=== PATIENT | female | born 1945 | race Caucasian/White ===

== ENCOUNTER 2017-10-22 08:32 | Day surgery (SDC) | payer MEDICARE, SELFPAY ==
[2017-10-22] VITALS (15 sets, daily range): BP systolic 101–140; BP diastolic 42–73; PULSE 72–84; RESP 14–20; TEMP 36.6; O2SAT 91–100; BMI 27.1
--- NOTE | 2017-10-22 10:59 | HMH.SCOPE ---
- Procedure: Date/Time of Procedure:: 10/22/17 10:59 Procedure Performed:: Colonoscopy with polypectomy Indications:: This is a 72-year-old female seen in consultation from Dr. Quezada for screening colonoscopy. Performing Provider:: Elijah Strange MD Referring Provider:: Dr. Rajiv Quezada Sedation:: IV sedation with 7 mg of Versed and 100 mcg of fentanyl Procedure:: After informed consent was obtained, the patient was taken to the endoscopy suite. IV sedation soon after she was transferred to the left lateral decubitus position. Digital rectal exam revealed no significant abnormality. The colonoscope was placed in position. The entire colon was evaluated. Bowel preparation was fair. Severe tortuosity made advancement of the colonoscope very difficult. Fairly large somewhat pedunculated polyp at 20 cm was excised utilizing a combination of snare polypectomy and cold biopsy forceps. No additions were seen. The colonoscope was carefully removed and the patient was transferred to recovery. Findings:: Bowel preparation fair Severe tortuosity Fairly large somewhat pedunculated polyp at 20 cm Impressions:: (see findings) Recommendations:: Repeat colonoscopy is pending pathology but will likely be between 2-3 years secondary to tortuosity and size/nature of polyp Complications:: No immediate Estimated blood obtained (mL): 1
== END 2017-10-22 11:40 | disposition home or self-care (01) ==
PROVIDERS: PCP Family Medicine; Visit Provider Surgery
PROC: 0DJD8ZZ Inspection of Lower Intestinal Tract, Via Natural or Artificial Opening Endoscopic (ICD-10-PCS; principal; 2017-10-22 09:30)
DX: Z12.11 Encounter for screening for malignant neoplasm of colon (principal); K63.5 Polyp of colon
CPT/HCPCS: 45385; 88305; 99152; 99153

== ENCOUNTER → 2018-04-01 08:11 | Outpatient (CLI) | payer MEDICARE, SELFPAY ==
--- NOTE | 2018-04-01 08:16 | MM_ITS ---
MM Dig screening mamm BI w/CAD CAD Screening ORDERING PHYSICIAN : Rajiv Quezada MD PATIENT AGE: 72 years GENDER: Female COMPARISON June 2016, March 2015, April 2012 bilateral mammogram studies INDICATION: 72-year-old with no hormones no new complaints noncontributory family history. TECHNIQUE: Standard CC and MLO images were obtained. R2 CAD reviewed. FINDINGS: Low-density breast bilaterally with minimal residual fibroglandular elements. Scattered small stable appearing densities bilaterally with no no new suspicious dominant mass. No suspicious calcifications. CAD computer review highlights no areas of concern either. RIGHT BREAST:. Overall stable pattern with no new findings. Small area of focal Fibroglandular densities superior left breast stable LEFT BREAST:Small density at the upper outer quadrant left breast is been present since studies dating back to 2011. No significant change can be followed. Safely IMPRESSION: . Stable bilateral mammogram with no significant new findings. Bilateral follow-up in one year recommended BI-RADS Category: 1 Negative RECOMMENDED FOLLOW-UP: 1YR - 1 YEAR FOLLOW-UP (A letter has been sent to the patient regarding results of the study.)
== END ==
PROVIDERS: PCP Family Medicine; Visit Provider Family Medicine
DX: Z12.31 Encounter for screening mammogram for malignant neoplasm of breast (principal)
CPT/HCPCS: 77067

== ENCOUNTER → 2019-04-28 08:16 | Outpatient (CLI) | payer MEDICARE, SELFPAY ==
--- NOTE | 2019-04-28 08:26 | MM_ITS ---
MM Dig screening mamm BI w/CAD CAD Screening COMPARISON: Digital mammograms with CAD 04/01/2018 and 06/27/2016 INDICATION: There is no personal or family history of breast cancer TECHNIQUE: Standard CC and MLO images were obtained. R2 CAD reviewed. FINDINGS: Scattered fibro glandular densities are seen throughout both breasts. There are few scattered benign-appearing microcalcifications in each breast. There is a stable small benign-appearing nodular density outer quadrant left breast. There is no suspicious lesion and there are no suspicious microcalcifications. IMPRESSION: , Fibrofatty parenchyma with no suspicious lesion seen BI-RADS Category: 2 Benign Finding(s) RECOMMENDED FOLLOW-UP: 1YR - 1 YEAR FOLLOW-UP (A letter has been sent to the patient regarding results of the study.)
--- NOTE | 2019-04-28 08:27 | XR_ITS ---
XR DEXA axial skeleton, HISTORY: ITS.REASON: POST MENOPAUSAL ORDERING PHYSICIAN: Rajiv Quezada MD PATIENT AGE: 73 years COMPARISON: None FINDINGS: The BMD measured at the Left femoral neck is 0.772 g/cm squared with a T score of -1.9. This is considered Osteopenic according to the World Health Organization criteria. Fracture risk is Moderate. Treatment is advised. IMPRESSION: Osteopenia with moderate fracture risk. Suggest follow-up exam April 2021
== END ==
PROVIDERS: PCP Family Medicine; Visit Provider Family Medicine
DX: Z12.31 Encounter for screening mammogram for malignant neoplasm of breast (principal); Z13.820 Encounter for screening for osteoporosis; Z78.0 Asymptomatic menopausal state
CPT/HCPCS: 77067; 77080

== ENCOUNTER → 2019-07-11 14:42 | Outpatient (CLI) | payer OTHER, SELFPAY ==
--- NOTE | 2019-07-11 14:45 | MR_ITS ---
PROCEDURE: MR SHOULDER RT WO CON CLINICAL INDICATION: evaluate for rotator cuff tear Shoulder pain with limited range of motion COMPARISON: XR SHOULDER RT MIN 2V from 06/08/2019 TECHNIQUE: Routine multiplanar multi echo sequences are performed without gadolinium enhancement. FINDINGS: There is moderate acromioclavicular arthropathy with soft tissue swelling about the AC joint. Small amount fluid is present inferior to the distal clavicle and the AC joint. There is some down-sloping of the lateral aspect of the a chromium with subacromial stenosis. There is a complete tear of the supraspinatus tendon with retraction of the musculotendinous fibers. Infraspinatus tendon and teres minor tendon appears intact. Subscapularis tendon has an abnormal appearance. There thickening of the distal aspect of the supraspinatus tendon with some retraction of the fibers and discontinuity of the fibers distally consistent with tear of the subscapularis tendon. There is an area of increased T2 signal within the humeral head anteriorly somewhat irregular consistent with an area of sub cortical cystic change. No obvious labral tear. The bicipital tendon is in place although not enveloped completely anteriorly by the subscapularis tendon as 1 would expect. There are osteoarthritic changes of the glenohumeral joint. There is superior location of the humeral head. There is a shoulder joint effusion. Fluid is present in the bicipital tendon sheath. IMPRESSION: 1. Complete tear of the supraspinatus tendon with retraction of the musculotendinous fibers 2. There is also tear of the distal aspect of the subscapularis tendon which also appears complete with mild retraction of the musculotendinous fibers. Edema is present around the subscapularis tendon. 3. Osteoarthritic change of the acromioclavicular and glenohumeral joint with superior location of the humeral head with shoulder joint effusion and subarticular cystic changes of the humeral head Dictated by: Byron Ames MD 07/13/2019 06:16 Electronically signed by Byron Ames MD in [place] 07/13/2019 06:16
== END ==
PROVIDERS: PCP Family Medicine; Visit Provider Orthopaedic Surgery
DX: M25.511 Pain in right shoulder (principal); M75.41 Impingement syndrome of right shoulder
CPT/HCPCS: 73221

== ENCOUNTER → 2019-11-17 09:09 | Outpatient (CLI) | payer MEDICARE, SELFPAY ==
--- NOTE | 2019-11-17 09:09 | FL_ITS ---
PROCEDURE: FL BARIUM SWALLOW CLINICAL INDICATION: dysphagia/ HO foreign body impaction COMPARISON: No exams were available for comparison TECHNIQUE: In the upright position the patient was observed to swallow barium in both the AP and lateral view. The cervical esophagus was examined under fluoroscopy with images obtained. The patient was then placed prone in the right anterior oblique position and was observed to swallow barium with Valsalva technique . FLUOROSCOPY TIME: 1 minutes and 23 seconds FINDINGS: There was no evidence of aspiration. There was normal peristalsis. No filling defects or mucosal abnormalities. No masses or strictures. There is a small hiatal hernia with a mildly constricting Schatzki's ring IMPRESSION: Small hiatal hernia with mildly constricting Schatzki's ring Dictated by: Byron Ames MD 11/17/2019 16:47 Electronically signed by Byron Ames MD in [place] 11/17/2019 16:47
== END ==
PROVIDERS: PCP Family Medicine; Visit Provider Surgery
DX: T18.128D Food in esophagus causing other injury, subsequent encounter (principal)
CPT/HCPCS: 74220

== ENCOUNTER → 2020-05-17 10:03 | Outpatient (CLI) | payer MEDICARE, SELFPAY ==
--- NOTE | 2020-05-17 10:08 | MM_ITS ---
PROCEDURE: MM DIG SCREENING MAMM BI W/CAD Digital Breast Tomosynthesis Included CLINICAL INDICATION: SCREENING There is no personal or family history of breast cancer. COMPARISON: MG DIGMAMMS MAMMOGRAM SCREEN-FAMILY LITERACY COORDINATOR N/C from 04/24/2010 MG DMSB DIG MAMM-SCREEN [facility] from 06/27/2016 MG SCBI MM Dig screening mamm BI w/CAD from 04/01/2018 MG DIG MAMM-SCREEN [facility] from 04/28/2019 TECHNIQUE: Standard CC and MLO images and 3D Tomosynthesis was obtained. R2 CAD reviewed. FINDINGS: The breasts are composed primarily of fat with scattered fibroglandular densities seen throughout both breasts. There are few benign-appearing microcalcifications in each breast. There is a stable small asymmetric density upper-outer quadrant left breast. There is no new or suspicious lesion in either breast and no suspicious microcalcifications. IMPRESSION: Fibrofatty parenchyma with no suspicious lesions seen BI-RAD Category: 2 Benign Finding(s) FOLLOW-UP: 1YR 1 Year Follow-up (A letter has been sent to the patient regarding results of the study.) Dictated Dr. Tyrel Conner MD 05/25/2020 07:51 Dr. Tyrel Monae MD in [place] 05/25/2020 07:51
== END ==
PROVIDERS: PCP Family Medicine; Visit Provider Family Medicine
DX: Z12.31 Encounter for screening mammogram for malignant neoplasm of breast (principal)
CPT/HCPCS: 77063; 77067

== ENCOUNTER 2021-06-23 16:17 | Emergency (ER) | payer MEDICARE, SELFPAY ==
[2021-06-23 16:18] VITALS: BP 136/82; PULSE 83; RESP 16; TEMP 36.6; O2SAT 98; BMI 28.1
[2021-06-23 17:10] VITALS: BP 136/82; PULSE 83; RESP 16; TEMP 36.7; O2SAT 98; BMI 28.1
--- NOTE | 2021-06-23 17:21 | HMH.EDUTC ---
[facility] [place] Clinical Impression: Pain, dental, Dental abscess Disposition: Home, Self-Care Condition on Discharge: Good Instructions: DI for Dental Pain, Tooth Abscess Additional Instructions: follow up with dentist if symptoms worsen return or be seen in ed antibiotics as ordered tylenol or motrin as needed for pain Prescriptions: Amoxicillin [Amoxicillin 500mg Tab] 500 mg PO BID 10 Days #20 tab Transmission Status: Pending to [id number] Referrals: Rajiv Quezada MD [Primary Care Provider] - Time of Disposition: 17:29 Medical Decision Making - Jonathon Inquiry Pt receiving controlled substance: No Vital Signs: 06/23/21 16:18 Temperature 98 F Temperature Source Oral Pulse Rate [Radial] 83 Respiratory Rate 16 Blood Pressure [Right Arm] 136/82 Blood Pressure Mean [Right Arm] 100 Blood Pressure Position [Right Arm] Sitting 02 Sat by Pulse Oximetry 98 Oxygen Delivery Method Room Air [facility] [place] HPI - General Chief complaint: Urgent Treatment Center Stated complaint: dental pain Time Seen by Provider: 06/23/21 17:25 Mode of Arrival: Ambulatory Source of Information: Patient Limitations: No Limitations Description of Symptoms (Recalled from Triage Doc. by RN): C/O LT UPPER AND LOWER TOOTH PAIN STARTING TODAY - History of Present Illness Provider Complaint: 75 yr old female presents for dental pain. pt states she has pain in the lower gum around a tooth and the pain radiates down jaw that started today - Related Data Home Medications Medication Instructions Recorded Confirmed Amlodipine Besylate [Norvasc 5mg 5 mg PO DAILY 10/21/17 01/04/20 tablet] Atorvastatin Calcium [Atorvastatin 20 mg PO DAILY 10/21/17 01/04/20 20mg Tab] Levothyroxine Sodium 75 mcg PO DAILY 10/21/17 01/04/20 [Levothyroxine 75mcg (0.075mg) Tab] Meloxicam 15 mg PO DAILY 10/21/17 01/04/20 Previous Rx's Medication Instructions Recorded Ibuprofen [Ibuprofen 600mg 600 mg PO Q6HP PRN #30 tab 06/08/19 Tablet] Amoxicillin [Amoxicillin 500mg Tab] 500 mg PO BID 10 Days #20 tab 06/23/21 Allergies Allergy/AdvReac Type Severity Reaction Status Date / Time No Known Allergies Allergy Verified 01/04/20 14:58 [facility] History - Hepatitis A Screen Attestation statement:: This patient has been screened for Hepatitis A risk factors. I have reviewed the patient's past medical history: Yes Medical History: Reports:: Hyperlipidemia, Hypertension Denies:: Cancer, Diabetes Mellitus Type 1, Diabetes Mellitus Type 2, Internal Pacemaker, Lung Disease, MRSA, Seizures Other Medical History: Reports: Arthritis, Hypothyroidism, Other Other Surgeries: Yes: No Previous Surgery, Colonoscopy, EGD. No: Pacemaker Amputation: No Fractures: No - Social History Smoking Status: Never smoker Alcohol Intake: never Substance Use Type: denies use Occupational Status: employed Housing: house Household Members: none Family Hx:: No significant family history ROS Obtained: Yes Systems reviewed as appropriate & no additional complaints - Constitutional Constitutional: Reports system reviewed and no additional complaints, except as docu, Denies fever(s) - Eyes Eyes: Reports system reviewed and no additional complaints, except as docu, Denies blurry vision - ENT Ears, Nose, Mouth, and Throat: Reports system reviewed and no additional complaints, except as docu, Reports dental pain - Cardiovascular Cardiovascular: Reports system reviewed and no additional complaints, except as docu, Denies chest pain - Respiratory Respiratory: Reports system reviewed and no additional complaints, except as docu, Denies change in phlegm color - Gastrointestinal Gastrointestingal: Reports: system reviewed and no additional complaints, except as docu. Denies: abdominal pain - Genitourinary Female Genitourinary: Reports system reviewed and no additional complaints, except as docu - Musculoskeletal Musculoskeletal: Reports syst
[2021-06-23 17:30] VITALS: BP 136/82; PULSE 83; RESP 16; TEMP 36.7; O2SAT 98
== END 2021-06-23 17:37 | disposition home or self-care (01) ==
PROVIDERS: Emergency Provider Nurse Practitioner Family; PCP Family Medicine
DX: K04.7 Periapical abscess without sinus (principal); I10 Essential (primary) hypertension; E78.5 Hyperlipidemia, unspecified
CPT/HCPCS: G0463; 99202

== ENCOUNTER → 2021-06-27 15:44 | Outpatient (CLI) | payer MEDICARE, SELFPAY ==
--- NOTE | 2021-06-27 15:50 | MM_ITS ---
PROCEDURE: MM DIG SCREENING MAMM BI W/CAD Digital Breast Tomosynthesis Included CLINICAL INDICATION: SCREENING COMPARISON: MG SCBI MM Dig screening mamm BI w/CAD from 04/01/2018 MG DIG MAMM-SCREEN PARRIS from 04/28/2019 MG MM DIG SCREENING MAMM BI W/CAD from 05/17/2020 TECHNIQUE: Standard CC and MLO images and 3D Tomosynthesis was obtained. R2 CAD reviewed. FINDINGS: The breasts are almost entirely fatty. Benign-appearing calcifications noted bilaterally. No suspicious appearing mass, malignant-appearing microcalcification, architectural distortion, or skin thickening. IMPRESSION: Benign findings. BI-RAD Category: 2 Benign Finding FOLLOW-UP: 1 YR 1 Year Follow-up (A letter has been sent to the patient regarding results of the study.) Dictated by: Byron Ames MD 07/11/2021 10:05 Byron Ames MD in [place] 07/11/2021 10:05
== END ==
PROVIDERS: PCP Family Medicine; Visit Provider Family Medicine
DX: Z12.31 Encounter for screening mammogram for malignant neoplasm of breast (principal)
CPT/HCPCS: 77063; 77067

== ENCOUNTER → 2021-09-27 08:40 | Outpatient (CLI) | payer MEDICARE, SELFPAY ==
--- NOTE | 2021-09-27 08:44 | XR_ITS ---
PROCEDURE: XR DEXA AXIAL SKELETON CLINICAL HISTORY: OSTEOPOROSIS SCREENING, POST MENOPAUSAL COMPARISON: No exams were available for comparison FINDINGS: The right hip BMD is 0.664 with a T-score of -1.7. The left hip BMD is 0.620 with a T-score of -2.0. The lumbar spine BMD is 1.002 with a T-score of -0.4. IMPRESSION: This patient is considered osteopenic according to the World Health Organization criteria. Bone density is between 10 and 25 percent below young normal. Fracture risk is moderate. Treatment is advised. Based on these results a follow-up exam is recommended in 2 year. Dictated by: Byron Ames MD 09/27/2021 14:43 Byron Aems MD in [place] 09/27/2021 14:43
== END ==
PROVIDERS: PCP Family Medicine; Visit Provider Family Medicine
DX: Z13.820 Encounter for screening for osteoporosis (principal); Z78.0 Asymptomatic menopausal state
CPT/HCPCS: 77080

== ENCOUNTER 2022-05-04 14:09 | Emergency (ER) | payer MEDICARE, SELFPAY ==
[2022-05-04 15:00] VITALS: BP 198/86; PULSE 92; RESP 18; TEMP 36.7; O2SAT 98; BMI 30.6
--- NOTE | 2022-05-04 15:05 | HMH.EDUTC ---
[facility] [place] Disposition Clinical Impression: Left knee pain Qualifiers: Chronicity: acute Qualified Code(s): M25.562 - Pain in left knee Osteoarthritis of left knee Qualifiers: Osteoarthritis type: unspecified Qualified Code(s): M17.12 - Unilateral primary osteoarthritis, left knee Disposition: Home, Self-Care Condition on Discharge: Good Instructions: DI for Osteoarthritis, DI for Knee Pain Additional Instructions: Rest the extremity, Elevate the extremity as tolerated while you are resting. Take the steroids (medrol dose pack) as directed. Don't start it until tomorrow since you had the shot here today. Follow up with your regular doctor. GO TO THE ER FOR ANY WORSENING SYMPTOMS Prescriptions: methylPREDNISolone [Medrol] 4 mg PO DIRECTED 6 Days #21 packet Transmission Status: Received by [id number] Referrals: Rajiv Quezada MD [Primary Care Provider] - Time of Disposition: 15:25 Medical Decision Making - Medical Records Medical records reviewed: No: I reviewed the patient's medical records. - Jonathon Inquiry Pt receiving controlled substance: No Vital Signs: 05/04/22 15:00 05/04/22 15:30 Temperature 98.0 F 98.0 F Temperature Source Oral Pulse Rate 92 H Pulse Rate [Left] 92 H Respiratory Rate 18 18 Blood Pressure 198/86 H Blood Pressure [Left Arm] 198/86 H Blood Pressure Mean [Left Arm] 123 Blood Pressure Source [Left Arm] Automatic Cuff Blood Pressure Position [Left Arm] Sitting 02 Sat by Pulse Oximetry 98 Oxygen Delivery Method Room Air Orders (Tests/Meds): ED MEDICATIONS Discontinued Medications Generic Name Dose Route Start Last Admin Trade Name Fernanda PRN Reason Stop Dose Admin Ketorolac Tromethamine 30 mg 05/04/22 15:23 05/04/22 15:25 Ketorolac 60mg/2ml Vial IM 05/04/22 15:24 30 mg ONCE ONE Administration Methylprednisolone Sodium Succinate 125 mg 05/04/22 15:23 05/04/22 15:25 Methylprednisolone Sod Succ 125mg Vial IM 05/04/22 15:24 125 mg ONCE ONE Administration Medical Decision Narrative: She refused any x-rays. [facility] [place] HPI - General Stated complaint: Left knee pain Time Seen by Provider: 05/04/22 15:05 - History of Present Illness Provider Complaint: She is here with c/o left knee pain. She denies any fall or injury. She states that she went to a wedding yesteday and had to walk a lot. She has a history of osteoarthritis of her knees and she thinks that she over did it and irritated her knee. She denies any leg swelling and any history of dvt's. - Related Data Home Medications Medication Instructions Recorded Confirmed Amlodipine Besylate [Norvasc 5mg 5 mg PO DAILY 10/21/17 01/04/20 tablet] Atorvastatin Calcium [Atorvastatin 20 mg PO DAILY 10/21/17 01/04/20 20mg Tab] Levothyroxine Sodium 75 mcg PO DAILY 10/21/17 01/04/20 [Levothyroxine 75mcg (0.075mg) Tab] Meloxicam 15 mg PO DAILY 10/21/17 01/04/20 Previous Rx's Medication Instructions Recorded Ibuprofen [Ibuprofen 600mg 600 mg PO Q6HP PRN #30 tab 06/08/19 Tablet] Amoxicillin [Amoxicillin 500mg Tab] 500 mg PO BID 10 Days #20 tab 06/23/21 peg 3350-electrolytes 236 240 ml PO Q10M #4000 ml 04/01/22 gram-22.74 gram-6.74 gram-5.86 gram solution methylPREDNISolone [Medrol] 4 mg PO DIRECTED 6 Days #21 05/04/22 packet Allergies Allergy/AdvReac Type Severity Reaction Status Date / Time No Known Allergies Allergy Verified 01/04/20 14:58 [facility] History - Hepatitis A Screen Attestation statement:: This patient has been screened for Hepatitis A risk factors. I have reviewed the patient's past medical history: Yes Medical History: Reports:: Hyperlipidemia, Hypertension Denies:: Cancer, Diabetes Mellitus Type 1, Diabetes Mellitus Type 2, Internal Pacemaker, Lung Disease, MRSA, Seizures Other Medical History: Reports: Arthritis, Hypothyroidism, Other Other Surgeries: Yes: No Previous Surgery, Colonoscopy, EGD. No:
[2022-05-04 15:30] VITALS: BP 198/86; PULSE 92; RESP 18; TEMP 36.7; O2SAT 98
== END 2022-05-04 15:38 | disposition home or self-care (01) ==
PROVIDERS: Emergency Provider Nurse Practitioner Family; PCP Family Medicine
DX: M17.12 Unilateral primary osteoarthritis, left knee
CPT/HCPCS: 96372; 99212; G0463

== ENCOUNTER → 2022-05-17 12:02 | Outpatient (CLI) | payer MEDICARE, SELFPAY | PROVIDERS: PCP Surgery; Visit Provider Surgery | DX: Z01.812 Encounter for preprocedural laboratory examination (principal); Z20.822 Contact with and (suspected) exposure to COVID-19; Z12.11 Encounter for screening for malignant neoplasm of colon | CPT/HCPCS: C9803; U0003; U0005 ==

== ENCOUNTER 2022-05-20 08:10 | Day surgery (SDC) | payer MEDICARE, SELFPAY ==
[2022-05-16 10:32] VITALS: BMI 27.1
[2022-05-20 08:33] VITALS: BP 136/69; PULSE 96; RESP 18; TEMP 36.2; O2SAT 98
--- NOTE | 2022-05-20 09:18 | HMH.ANESCL ---
[facility] Anesthesia Checklist - Patient Identification Patient Identification: Arm Band - Structural Data Admitted From: Home Planned Operative Procedure/s: Colonoscopy Consent for Planned Operative Procedure(s) Verified: Yes - NPO Status Verified Time NPO: 04:00 (Prep) - Additional verifications Anesthesia Reactions: No - Airway Assessment C-Spine Mobility Assessed: Yes TMJ Mobility Assessed: Yes Dentition: Good Dentition - Neurological Assessment Level of Consciousness: Awake Hx Seizures: No Numbness or tingling in extremities: No - Anesthesia Plan Anesthesia Risk discussed: Yes Anesthesia Plan: Verified ASA Class: II Anesthesia Type: [facility] History I have reviewed the patient's past medical history: Yes Medical History: Reports:: Hyperlipidemia, Hypertension Denies:: Cancer, Diabetes Mellitus Type 1, Diabetes Mellitus Type 2, Internal Pacemaker, Lung Disease, MRSA, Seizures *Have you ever received a pneumonia vaccine?: Yes *Have you received a flu vaccine this season?: Yes Other Medical History: Reports: Arthritis, Hypothyroidism, Other Anesthesia experience/problems:: None Other Surgeries: Yes: No Previous Surgery, Colonoscopy, EGD. No: Pacemaker Amputation: No Fractures: No - *Social History Last grade of school completed: High school graduate Smoking Status: Never smoker Alcohol Intake: never Substance Use Type: denies use *Occupational Status:: employed Housing: house Household Members: none *Travel in the last 8 weeks: None Family Hx:: Heart Attack
--- NOTE | 2022-05-20 09:24 | HMH.SCOPE ---
- Procedure: Date: 05/20/22 Patient Date of :: 1945 Procedure Performed:: Colonoscopy with polypectomy Indications:: History of colon polyps Colonoscopy in October 2017 revealed large pedunculated adenoma at 20 cm. Performing Provider:: Elijah Strange MD Referring Provider:: . Sedation:: Monitored anesthesia care Procedure:: After informed consent was obtained the patient was taken to the endoscopy suite. Sedation ensued after the patient was transferred to the left lateral decubitus position. Pulse, blood pressure, and oxygen saturation were monitored throughout the procedure. Digital rectal exam revealed palpable anal canal polyp. The colonoscope was placed in position. The entire colon was evaluated. The colonoscope was carefully removed and the patient was transferred to recovery in stable condition. Please see findings and specimens below for detail. Findings:: Bowel preparation moderate Significant lack of relaxation Complex polyps (see specimens) Specimens:: Sessile elongated 9 mm periappendiceal polyp (cold snare and tattoo) Lobulated complex polyp at 25 cm (hot snare) Lobulated/partially-pedunculated anal canal polyp (hot snare) Recommendations:: Timing of repeat colonoscopy is pending pathology but will likely be around 1 year secondary to size/nature/number of polyps and need for short-term reevaluation of tattoo site in periappendiceal region. Complications:: No immediate Estimated blood obtained (mL): 1
[2022-05-20 09:32] VITALS: O2SAT 98
[2022-05-20 10:18] VITALS: BP 81/50; PULSE 79; RESP 12; TEMP 36.6; O2SAT 95
[2022-05-20 10:28] VITALS: BP 92/56; PULSE 87; RESP 16; O2SAT 96
[2022-05-20 10:38] VITALS: BP 110/65; PULSE 85; RESP 16; O2SAT 97
[2022-05-20 10:48] VITALS: BP 131/69; PULSE 72; RESP 16; TEMP 36.6; O2SAT 96
== END 2022-05-20 10:51 | disposition home or self-care (01) ==
LOC: OUTP 08:13
PROVIDERS: PCP Family Medicine; Visit Provider Surgery
PROC: 0DJD8ZZ Inspection of Lower Intestinal Tract, Via Natural or Artificial Opening Endoscopic (ICD-10-PCS; principal; 2022-05-20 09:30)
DX: Z12.11 Encounter for screening for malignant neoplasm of colon (principal); K63.5 Polyp of colon; Z86.010 Personal history of colon polyps; Z79.899 Other long term (current) drug therapy
CPT/HCPCS: 45385; 88305; J2704

== ENCOUNTER 2022-08-27 23:56 | Emergency (ER) | payer MEDICARE, SELFPAY ==
[2022-08-27 23:55] VITALS: BP 171/80; PULSE 94; RESP 16; TEMP 36.9; O2SAT 97; BMI 27.9
--- NOTE | 2022-08-28 00:14 | XR_ITS ---
PROCEDURE INFORMATION: Exam: XR Left Hip Exam date and time: 08/28/2022 12:18 AM Age: 77 years old Clinical indication: Injury or trauma; Fall; Blunt trauma (contusions or hematomas); Left; Hip and pelvic region TECHNIQUE: Imaging protocol: Radiologic exam of the Left hip. Views: 2 or 3 views hip with pelvis when performed. COMPARISON: No relevant prior studies available. FINDINGS: Bones/joints: There are fractures involving the left superior inferior pubic rami. The pubic symphysis is intact. Left hip is normally aligned. There is no fracture of the proximal left femur. Soft tissues: Unremarkable. IMPRESSION: Fractures involving the left superior and inferior pubic rami with intact pubic symphysis. No acute finding of the left hip is noted.
--- NOTE | 2022-08-28 00:14 | XR_ITS ---
PROCEDURE INFORMATION: Exam: XR Chest Exam date and time: 08/28/2022 12:21 AM Age: 77 years old Clinical indication: Injury or trauma; Fall; Blunt trauma (contusions or hematomas) TECHNIQUE: Imaging protocol: Radiologic exam of the chest. Views: 1 view. COMPARISON: MR SHOULDER RT WO CON 07/11/2019 3:25 PM FINDINGS: Lungs: Unremarkable. No consolidation. Pleural spaces: Unremarkable. No pleural effusion. No pneumothorax. Heart/Mediastinum: Unremarkable. No cardiomegaly. Vasculature: Unremarkable. Bones/joints: Prominent degenerative changes of the spine are noted. There is a mild S shaped scoliosis evident. IMPRESSION: No acute findings.
[2022-08-28 00:54] VITALS: BP 160/80; PULSE 83; RESP 18; TEMP 36.9; O2SAT 95
--- NOTE | 2022-08-28 00:58 | HMH.EDFALL ---
Discharge Plan Disposition Patient Disposition: Xfer Short-Term Hosp Chief Complaint: Fall Prescriptions Prescriptions: No Action ibuprofen 600 MG tablet 600 mg PO Q6HP PRN (Reason: Mild Pain) Qty: 30 0RF atorvastatin 20 MG tablet 20 mg PO DAILY meloxicam 15 MG tablet 15 mg PO DAILY amlodipine 5 MG tablet 5 mg PO DAILY levothyroxine 75 MCG tablet 75 mcg PO DAILY Clinical Impressions Clinical Impression: Pelvis fracture Discharge ED Provider: Blair Clifton HPI General Chief Complaint: Fall Stated Complaint: fall Time Seen by Provider: 08/28/22 00:58 Mode of Arrival: EMS Source of Information: Patient, EMS and Medical Record Limitations: No Limitations Description of Symptoms (Recalled from ER Triage Doc. by RN): pt stated at 10pm she went to put on her shoes and fell after losing her balance. the pt stated that she usually holds something for balance but this time she didnt and had a fall pt stated there is pain in her groin area to the left. per ems pt was at the door upon arrival standing waiting. History of Present Illness HPI Narrative: fell at home with pain in lt groin and denied any neck pain and no loc MD complaint: fall Onset (ago): hour(s) Fall from: standing Fall witnessed: no Place fall occurred: home Loss of consciousness: none Prolonged down time: no Symptoms prior to fall: none Context: tripped/slipped Location of injury: pelvis Severity: moderate Associated symptoms (after fall): denies Related Data Home Medications Medication Instructions Recorded Confirmed amlodipine 5 mg tablet 5 mg PO DAILY BP 10/21/17 05/16/22 atorvastatin 20 mg tablet 20 mg PO DAILY Cholesterol 10/21/17 05/16/22 levothyroxine 75 mcg tablet 75 mcg PO DAILY THYROID 10/21/17 05/16/22 celecoxib 200 mg capsule 200 mg PO DAILY . 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 occupational exposures/hazards: No caffeine: Yes ROS Obtained: Yes All systems reviewed & no additional complaints except as documented Physical Exam General General appearance: alert Head Head exam: normocephalic Eye Eye exam: Present PERRL and EOMI ENT ENT exam: Present mucous membranes moist Neck Neck exam: Present trachea midline Respiratory Respiratory exam: Absent respiratory distress Cardiovascular Cardiovascular exam: Present regular rate Abdominal Exam Abdominal exam: Present soft Extremities Exam Extremities exam: Present full ROM Neurological Exam Neurological exam: Present alert, oriented X3 and CN II-XII intact Psychiatric Psychiatric exam: Present normal affect Skin Skin exam: Absent rash Medical Decision Making Medical Records Medical records reviewed: Yes I reviewed the patient's medical records. Jonathon Inquiry Pt receiving controlled substance: No Vital Signs: 08/27/22 23:55 08/28/22 00:54 08/28/22 00:54 Temperature 98.5 F 98.5 F Temperature Source Oral Pulse Rate 83 Pulse Rate [Left] 94 H Respiratory Rate 16 18 Blood Pressure 160/80 H Blood Pressure [Right Arm] 171/80 H Blood Pressure Mean [Right Arm] 110 02 Sat by Pulse Oximetry 97 Oxygen Delivery Method Room Air Room Air Room Air Lab Data Lab results reviewed: Yes I reviewed the patient's lab results. Orders (Tests/Meds): ORDERS Category Date Time Status CT pelvis wo con Stat Cat Scan 08/28/22 01:00 Completed Chest XR AP view [XR chest AP] Stat Exams 08/28/22 00:14 Completed XR hip LT 2-3V w/pelvis Stat Exams 08/28/22 00:14 Completed Radiology Data #1:
--- NOTE | 2022-08-28 01:00 | CT_ITS ---
PROCEDURE INFORMATION: Exam: CT Pelvis Without Contrast; Skeletal Exam date and time: 08/28/2022 2:13 AM Age: 77 years old Clinical indication: Abnormal findings; Abnormal imaging test; Additional info: Pelvic FX TECHNIQUE: Imaging protocol: Computed tomography of the pelvis without contrast. Exam focused on the skeleton. Radiation optimization: All CT scans at this facility use at least one of these dose optimization techniques: automated exposure control; mA and/or kV adjustment per patient size (includes targeted exams where dose is matched to clinical indication); or iterative reconstruction. COMPARISON: CR XR HIP LT 2-3V W/PELVIS 08/28/2022 12:18 AM FINDINGS: Stomach and bowel: There is no acute bowel process. Urinary bladder: The urinary bladder is well distended and intact. Reproductive: Reproductive organs are unremarkable. Lymph nodes: There is no intrapelvic mass, free fluid or lymphadenopathy. Bones/joints: There is a comminuted fracture of the left pubic body extending into the central aspect of the superior and inferior pubic rami. A separate nondisplaced fracture of the mid inferior pubic ramus is noted as well. The hips are normally aligned and intact. There is no fracture of the proximal femurs. The SI joints and pubis symphysis are intact with moderate degenerative changes present. There is significant degenerative disc disease and facet arthropathy lower lumbar levels included on this study. Soft tissues: There is a 3.1 x 5.2 x 6.2 cm fluid collection within the left gluteus medius muscle. This may represent intramuscular ganglion cyst or sequela of old trauma. The anterior abdominal wall included on this study is intact. IMPRESSION: 1. Comminuted fracture of the left pubic body extending into the superior and inferior pubic rami. A separate nondisplaced fracture of the mid inferior pubic ramus is present as well. 2. The hips are normally aligned and intact. 3. Prominent fluid collection within the left gluteus medius muscle either representing intramuscular ganglion cyst or sequela of old trauma.
--- NOTE | 2022-08-28 03:39 | PC.NURSE ---
ER speaking with Dr Burns at [facility] at this time
--- NOTE | 2022-08-28 03:45 | PC.NURSE ---
Patient has been accepted to [facility] by .
--- NOTE | 2022-08-28 03:45 | PC.NURSE ---
Dr Burns accepted pt at [facility] at this time
== END 2022-08-28 05:03 | disposition short-term general hospital (02) ==
PROVIDERS: Emergency Provider Emergency Medicine; PCP Family Medicine
DX: S32.9XXA Fracture of unspecified parts of lumbosacral spine and pelvis, initial encounter for closed fracture (principal); S32.592A Other specified fracture of left pubis, initial encounter for closed fracture; S72.002A Fracture of unspecified part of neck of left femur, initial encounter for closed fracture; W18.30XA Fall on same level, unspecified, initial encounter
CPT/HCPCS: 71045; 72192; 73502; 99284

== ENCOUNTER → 2022-11-11 12:30 | Outpatient (CLI) | payer MEDICARE, SELFPAY ==
[2022-11-11 13:32] LABS: Potassium 4.7 mmoL/L (3.5-5.1)
== END ==
PROVIDERS: PCP Family Medicine; Visit Provider Family Medicine
DX: E87.5 Hyperkalemia (principal)
CPT/HCPCS: 36415; 84132

== ENCOUNTER → 2022-12-23 09:31 | Outpatient (CLI) | payer MEDICARE, SELFPAY ==
--- NOTE | 2022-12-23 09:37 | XR_ITS ---
FINAL REPORT CLINICAL HISTORY: ankle pain FINDINGS: RIGHT ANKLE: Three views of the right ankle were obtained. There is no acute fracture or dislocation. There are mild degenerative changes. There is soft tissue swelling. IMPRESSION: Soft tissue swelling with mild degenerative change. Reviewed, Interpreted and Dictated by Ricardo Ford III, MD Transcribed by Italo Price Authenticated and . [facility]
== END ==
PROVIDERS: PCP Family Medicine; Visit Provider Orthopaedic Surgery
DX: M25.571 Pain in right ankle and joints of right foot (principal)
CPT/HCPCS: 73610

== ENCOUNTER → 2023-02-09 15:07 | Outpatient (CLI) | payer MEDICARE, SELFPAY ==
[2023-02-09 18:25] LABS: Potassium 5.3 mmoL/L (3.5-5.1)
== END ==
PROVIDERS: PCP Family Medicine; Visit Provider Family Medicine
DX: E87.5 Hyperkalemia (principal)
CPT/HCPCS: 36415; 84132

== ENCOUNTER 2023-04-26 09:52 | Emergency (ER) | payer MEDICARE, SELFPAY ==
--- NOTE | 2023-04-26 09:55 | XR_ITS ---
PROCEDURE INFORMATION: Exam: XR Right Knee Exam date and time: 04/26/2023 10:22 AM Age: 77 years old Clinical indication: Pain; Knee; Right TECHNIQUE: Imaging protocol: Radiologic exam of the right knee. Views: 3 views. COMPARISON: CR XR ANKLE RT MIN 3V 12/23/2022 9:38 AM FINDINGS: Bones/joints: There are pronounced degenerative changes of the knee joint, predominantly involving the lateral joint compartment. No visible fracture or dislocation. Small joint effusion Soft tissues: Normal. IMPRESSION: 1. There are pronounced degenerative changes of the knee joint, predominantly involving the lateral joint compartment. 2. No visible fracture or dislocation.
[2023-04-26 10:05] VITALS: BP 128/66; PULSE 91; RESP 20; TEMP 36.8; O2SAT 97; BMI 28.6
--- NOTE | 2023-04-26 10:18 | EXP.UTC ---
Discharge Plan Disposition Patient Disposition: Home, Self-Care Condition: Good Prescriptions Prescriptions: New methylprednisolone [Medrol (Paresh)] 4 mg tablets,dose pack See Rx Instructions .Route .COMPLEX 6 Days Qty: 21 0RF Rx Instructions: taper pack; No Action celecoxib 200 mg capsule 200 mg PO DAILY Patient Comments: TAKE 1 CAPSULE BY MOUTH ONCE DAILY atorvastatin 20 MG tablet 20 mg PO DAILY amlodipine 5 MG tablet 5 mg PO DAILY levothyroxine 75 MCG tablet 75 mcg PO DAILY Referrals Follow up/Referrals: Rajiv Quezada MD [Primary Care Provider] - See instructions Tate Mendoza DO [Staff Physician] - See instructions Activity Restrictions/Add. Instructions Additional Instructions/Restrictions: Follow up with your Doctor if no improvement or any worsening of symptoms Start oral steriods tomorrow Follow up with Orthopedics if no improvement or any worsening of symptoms Clinical Impressions Clinical Impression: Acute knee pain Qualifiers: Laterality: right Qualified Code(s): M25.561 - Pain in right knee Instructions Patient Instructions: DI for Chronic Pain -- Adult, Methylprednisolone Discharge ED Provider: Cally Chang [facility] General Stated complaint: RT knee pain Mode of Arrival: Ambulatory Source of Information: Patient Limitations: No Limitations Time Seen by Provider: 04/26/23 10:18 Description of Symptoms (Recalled from Triage Doc. by RN): PATIENT C/O RIGHT KNEE PAIN AFTER TWISTING IT WHILE IN BED LAST NIGHT HEENT Symptoms (Recalled from RN notes): No Resp Symptoms (Recalled from RN notes): No Skin Symptoms (Recalled from RN notes): No MS Symptoms (Recalled from RN notes): Yes Functional Status (Recalled from RN notes): WNL History of Present Illness Provider Complaint: Patient states that she has arthritis in her knees and last night as she was rolling over in the bed she felt a pull in her outer part of her right knee and thinks she may have torn something States that she is having pain when she tries to move or turn her leg but when she stands up she is ok and able to walk on it but sitting the pain is worse Related Data Home Medications Medication Instructions Recorded Confirmed amlodipine 5 mg tablet 5 mg PO DAILY BP 10/21/17 12/23/22 atorvastatin 20 mg tablet 20 mg PO DAILY Cholesterol 10/21/17 12/23/22 levothyroxine 75 mcg tablet 75 mcg PO DAILY THYROID 10/21/17 12/23/22 celecoxib 200 mg capsule 200 mg PO DAILY . 08/28/22 12/23/22 Previous Rx's Medication Instructions Recorded methylprednisolone 4 mg tablets in See Rx Instructions .Route 04/26/23 a dose pack (Medrol (Paresh)) .COMPLEX 6 days #21 tabs Allergies Allergy/AdvReac Type Severity Reaction Status Date / Time No Known Allergies Allergy Verified 12/23/22 10:42 Worker's Comp Is this a Worker's Comp case?: No [facility] Disclaimer: The information contained in this section may have been updated after the patient was seen, as this information can be updated by other users. 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
[2023-04-26 11:17] VITALS: BP 128/66; PULSE 91; RESP 20; TEMP 36.8; O2SAT 97
== END 2023-04-26 11:34 | disposition home or self-care (01) ==
PROVIDERS: Emergency Provider Nurse Practitioner; PCP Family Medicine
DX: M25.561 Pain in right knee (principal); M17.0 Bilateral primary osteoarthritis of knee; I10 Essential (primary) hypertension
CPT/HCPCS: 73562; 96372; 99212; 99214; G0463

== ENCOUNTER 2023-05-26 07:15 | Day surgery (SDC) | payer MEDICARE, SELFPAY ==
[2023-05-22 13:28] VITALS: BMI 28.3
[2023-05-26 07:34] VITALS: BP 125/62; PULSE 77; RESP 18; TEMP 36.1; O2SAT 98
--- NOTE | 2023-05-26 07:36 | P.PCN_ITS ---
Procedure: Date: 05/26/23 Patient Date of :: 1945 Procedure Performed:: Colonoscopy Indications:: History of colon polyps Note: Colonoscopy in October 2017 revealed a large pedunculated adenomatous luis a yp at 20 cm. Repeat colonoscopy in May 2022 revealed tubular adenomas of the periappendiceal region, at 25 cm, and of the anal canal. The complex 9 mm periappendiceal polyp was also tattooed. Performing Provider:: Elijah Strange MD Referring Provider:: . Sedation:: Monitored anesthesia care Procedure:: After informed consent was obtained the patient was taken to the endoscopy suite. Sedation ensued after the patient was transferred to the left lateral decubitus position. Pulse, blood pressure, and oxygen saturation were monitored throughout the procedure. Digital rectal exam revealed no significant abnormality. The colonoscope was placed in position. The entire colon was evaluated. The colonoscope was carefully removed and the patient was transferred to recovery in stable condition. Please see findings and specimens below for detail. Findings:: Bowel preparation fair to moderate Large volume irrigation and suctioning used to improve visualization Fairly severe spasticity Moderate tortuosity Tattoo site appeared normal Specimens:: none Recommendations:: Repeat colonoscopy in 2-3 years secondary to history of large complex polyps Complications:: No immediate Estimated blood obtained (mL): 0 Colonoscopy Component Colonoscopy Component Was a colonoscopy performed during today's procedure?: Yes Recommended follow up colonoscopy of at least 10 years?: No If no, follow up colonoscopy recommended in ___ years?: 2-3 Reason for not recommending >/= 10 yr follow-up interval?: History of multiple complex polyps
--- NOTE | 2023-05-26 07:44 | EXP.ANES.CKL ---
[facility] Disclaimer: The information contained in this section may have been updated after the patient was seen, as this information can be updated by other users. 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 occupational exposures/hazards: No caffeine: Yes [facility] Anesthesia Checklist Patient Identification Patient Identification: Arm Band and Verbal (Name & ) Structural Data Admitted From: Home Planned Operative Procedure/s: Colonoscopy Consent for Planned Operative Procedure(s) Verified: Yes NPO Status Verified Time NPO: 00:00 Additional verifications Anesthesia Reactions: No Airway Assessment Mallampati Score:: Class I C-Spine Mobility Assessed: Yes TMJ Mobility Assessed: Yes Dentition: Good Dentition Neurological Assessment Level of Consciousness: Awake Hx Seizures: No Numbness or tingling in extremities: No Anesthesia Plan Anesthesia Risk discussed: Yes Anesthesia Plan: Verified ASA Class: II Anesthesia Type: MAC
[2023-05-26 07:50] VITALS: O2SAT 98
[2023-05-26 08:34] VITALS: BP 81/43; PULSE 88; RESP 18; TEMP 36.4; O2SAT 95
[2023-05-26 08:44] VITALS: BP 95/47; PULSE 102; RESP 16; TEMP 36.4; O2SAT 97
[2023-05-26 08:54] VITALS: BP 128/54; PULSE 106; RESP 16; O2SAT 98
[2023-05-26 09:04] VITALS: BP 105/63; PULSE 98; RESP 16; O2SAT 98
== END 2023-05-26 09:05 | disposition home or self-care (01) ==
PROVIDERS: PCP Family Medicine; Visit Provider Surgery
PROC: 0DJD8ZZ Inspection of Lower Intestinal Tract, Via Natural or Artificial Opening Endoscopic (ICD-10-PCS; principal; 2023-05-26 08:30)
DX: Z12.11 Encounter for screening for malignant neoplasm of colon (principal); Z86.010 Personal history of colon polyps; K56.2 Volvulus
CPT/HCPCS: G0105; J1610; J2704

== ENCOUNTER 2023-08-03 16:49 | Emergency (ER) | payer MEDICARE, SELFPAY ==
[2023-08-03 17:20] VITALS: BP 142/95; PULSE 74; RESP 19; TEMP 36.8; O2SAT 99; BMI 30.9
--- NOTE | 2023-08-03 17:30 | EXP.UTC ---
Discharge Plan Disposition Patient Disposition: Home, Self-Care Condition: Good Prescriptions Prescriptions: New methylprednisolone 4 mg Tablets,Dose Pack 4 mg PO DIRECTED Qty: 21 0RF No Action celecoxib 200 mg capsule 200 mg PO DAILY Patient Comments: TAKE 1 CAPSULE BY MOUTH ONCE DAILY atorvastatin 20 MG tablet 20 mg PO DAILY amlodipine 5 MG tablet 5 mg PO DAILY levothyroxine 75 MCG tablet 75 mcg PO DAILY Referrals Follow up/Referrals: Rajiv Quezada MD [Primary Care Provider] - See instructions Activity Restrictions/Add. Instructions Additional Instructions/Restrictions: Rest the extremity. Don't start the oral steroids until tomorrow, since you had the shot here today. Follow up with your orthopedic doctor if you continue to have issues with this. Follow up with your regular doctor. GO TO THE ER FOR ANY WORSENING SYMPTOMS Clinical Impressions Clinical Impression: Tendinopathy of right shoulder, Pain in right shoulder Instructions Patient Instructions: Shoulder Tendinopathy, DI for Shoulder Pain, Methylprednisolone Injection Discharge ED Provider: Phuc Crocker [facility] General Stated complaint: right shoulder pain, no known accident Mode of Arrival: Ambulatory Source of Information: Patient Limitations: No Limitations Time Seen by Provider: 08/03/23 17:30 Description of Symptoms (Recalled from Triage Doc. by RN): PATIENT C/O RIGHT SHOULDER PAIN THAT STARTED APPROX 1.5 WEEKS AGO WHILE SHE WAS MOPPING THE FLOOR HEENT Symptoms (Recalled from RN notes): No Resp Symptoms (Recalled from RN notes): No Skin Symptoms (Recalled from RN notes): No MS Symptoms (Recalled from RN notes): Yes Functional Status (Recalled from RN notes): WNL History of Present Illness Provider Complaint: She states that she has had right shoulder pain that is worse with certain movements for the past 2 weeks. She denies any known injury or preceding trauma. Related Data Home Medications Medication Instructions Recorded Confirmed amlodipine 5 mg tablet 5 mg PO DAILY Hypertension 10/21/17 08/03/23 atorvastatin 20 mg tablet 20 mg PO DAILY Cholesterol 10/21/17 08/03/23 levothyroxine 75 mcg tablet 75 mcg PO DAILY THYROID 10/21/17 08/03/23 celecoxib 200 mg capsule 200 mg PO DAILY 08/28/22 08/03/23 Previous Rx's Medication Instructions Recorded methylprednisolone 4 mg tablets in 4 mg PO DIRECTED #21 tabs 08/03/23 a dose pack Allergies Allergy/AdvReac Type Severity Reaction Status Date / Time No Known Allergies Allergy Verified 05/26/23 07:29 Worker's Comp Is this a Worker's Comp case?: No [facility] Disclaimer: The information contained in this section may have been updated after the patient was seen, as this information can be updated by other users. 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
[2023-08-03 17:52] VITALS: BP 142/95; PULSE 74; RESP 19; TEMP 36.8; O2SAT 99
== END 2023-08-03 18:04 | disposition home or self-care (01) ==
PROVIDERS: Emergency Provider Nurse Practitioner Family; PCP Family Medicine
DX: M67.911 Unspecified disorder of synovium and tendon, right shoulder (principal); M25.511 Pain in right shoulder; I10 Essential (primary) hypertension; E78.5 Hyperlipidemia, unspecified; E03.9 Hypothyroidism, unspecified; M19.09 Primary osteoarthritis, other specified site
CPT/HCPCS: 96372; 99212; 99214; G0463

== ENCOUNTER 2023-10-20 15:42 | Outpatient (CLI) | payer MEDICARE, SELFPAY ==
--- NOTE | 2023-10-20 15:50 | MM_ITS ---
PROCEDURE INFORMATION: Exam: MG Bilateral Screening 3D Mammography Exam date and time: 10/20/2023 3:50 PM Age: 78 years old Clinical indication: Screening examination TECHNIQUE: Imaging protocol: Bilateral Screening tomosynthesis and 2D mammography including computer-aided detection (CAD) when performed. COMPARISON: 1. MG MM DIG SCREENING MAMM BI W/CAD 06/27/2021 3:53 PM 2. MG MM DIG SCREENING MAMM BI W/CAD 05/17/2020 10:07 AM FINDINGS: MAMMOGRAPHY: Breast composition: There are scattered areas of fibroglandular density. Mass: None. Architectural distortion: None. Calcifications: No suspicious calcifications. Asymmetric density: None. Skin thickening: None. Axillary adenopathy: None. IMPRESSION: No mammographic evidence of malignancy. Annual screening is recommended unless otherwise clinically indicated. ASSESSMENT: BI-RADS Category 1: Negative
== END 2023-10-20 23:59 ==
LOC: RAD 15:43
PROVIDERS: PCP Family Medicine; Visit Provider Family Medicine
DX: Z12.31 Encounter for screening mammogram for malignant neoplasm of breast (principal)
CPT/HCPCS: 77063; 77067

== ENCOUNTER 2024-02-27 20:16 | Emergency (ER) | payer MEDICARE, SELFPAY ==
[2024-02-27 20:17] VITALS: BP 196/94; PULSE 87; RESP 16; TEMP 36.6; O2SAT 97; BMI 27.1
[2024-02-27 20:30] VITALS: BP 196/94; PULSE 87; RESP 18; O2SAT 97
[2024-02-27] MEDS: LIDOCAINE 2% VISCOUS SOL 15ML UDC 15 ML PO (20:40)
[2024-02-27] MEDS: TETRACAINE/BENZOCAINE/BUTAMBEN 56 GM SPRAY TP (20:40)
--- NOTE | 2024-02-27 20:45 | PC.NURSE ---
dental balls placed on patient left side of mouth.
--- NOTE | 2024-02-27 20:58 | ED_ITS ---
Discharge Plan Disposition Patient Disposition: Home, Self-Care Prescriptions Prescriptions: New amoxicillin-pot clavulanate 875-125 mg tablet 1 tab PO BID 7 Days Qty: 14 0RF No Action celecoxib 200 mg capsule 200 mg PO DAILY Patient Comments: TAKE 1 CAPSULE BY MOUTH ONCE DAILY methylprednisolone 4 mg Tablets,Dose Pack 4 mg PO DIRECTED Qty: 21 0RF atorvastatin 20 MG tablet 20 mg PO DAILY amlodipine 5 MG tablet 5 mg PO DAILY levothyroxine 75 MCG tablet 75 mcg PO DAILY Referrals Follow up/Referrals: Rajiv Quezada MD [Primary Care Provider] - See instructions Activity Restrictions/Add. Instructions Additional Instructions/Restrictions: At this time it was felt you are safe to be discharged home. If new or worsening symptoms please do not hesitate to return the emergency department. Please take your antibiotics as prescribed and follow-up with your dentist as discussed. Please use 1 of those dental balls every 3 hours as needed for dental pain. Clinical Impressions Clinical Impression: Dental caries Discharge ED Provider: Sohail Dougherty General Adult HPI General Chief complaint: Dental/Oral Stated complaint: chipped tooth now sensitive Time Seen by Provider: 02/27/24 20:19 Mode of Arrival: Ambulatory Source of Information: Patient Limitations: No Limitations Description of Symptoms (Recalled from ER Triage Doc. by RN): pt states she lost her filling out of left top tooth a couple of days and today began painful and sensitive History of Present Illness HPI narrative: Patient is a 78-year-old female with past medical history of multiple previous dental caries sent which status post extraction who presents emergency department for evaluation of tooth pain. Patient chipped her right maxillary molar approximate 4 days ago however has developed pain since this afternoon. She has a history of previous infection which required antibiotics and she presents here for continued evaluation. No overt swelling, no difficulty swallowing reported, no other acute complaints at this time. Related Data Home Medications Medication Instructions Recorded Confirmed amlodipine 5 mg tablet 5 mg PO DAILY Hypertension 10/21/17 08/03/23 atorvastatin 20 mg tablet 20 mg PO DAILY Cholesterol 10/21/17 08/03/23 levothyroxine 75 mcg tablet 75 mcg PO DAILY THYROID 10/21/17 08/03/23 celecoxib 200 mg capsule 200 mg PO DAILY 08/28/22 08/03/23 Previous Rx's Medication Instructions Recorded methylprednisolone 4 mg tablets in 4 mg PO DIRECTED #21 tabs 08/03/23 a dose pack amoxicillin 875 mg-potassium 1 tab PO BID Dental Caries 7 days 02/27/24 clavulanate 125 mg tablet #14 tabs Allergies Allergy/AdvReac Type Severity Reaction Status Date / Time No Known Allergies Allergy Verified 05/26/23 07:29 [facility] Disclaimer: The information contained in this section may have been updated after the patient was seen, as this information can be updated by other users. Medical History History of gastroesophageal reflux (GERD) Hyperlipidemia Hypertension Hypothyroid Osteoarthritis Surgical History H/O colonoscopy No significant past surgical history Family History Mother Family history of acute heart failure Father Family history of acute heart failure Social History Smoking Status: Never smoker second hand exposure: No alcohol intake: never substance use type: denies use current occupational status: employed Travel in the last 8 weeks: None household members: none housing: house current occupation: [employer] current occupational exposures/hazards: No caffeine: Yes ROS Obtained: Yes Systems reviewed as appropriate & no additional complaints except as documented Physical Exam General General appearance: alert and in no apparent distress Head Head exam: atraumatic and normocephalic Eye Eye exam: Present PERRL ENT ENT exam: Present normal oropharynx, mucous membranes moist and other (Tender right maxillary molar, no periapical fluctuance, no swelling of the buccal mucosa.) Neck Neck exam: Present normal inspection and full ROM Chest Chest inspection: Present normal inspection and symmetric chest wall rise Respiratory Respiratory exam: Absent respiratory distress Cardiovascular Cardiovascular exam: Present regular rate and normal rhythm Extremities Exam Extremities exam: Present normal inspection Neurological Exam Neurological exam: Present alert Psychiatric Psychiatric exam: Present normal affect Skin Skin exam: Present warm and dry Medical Decision Making Jonathon Inquiry Pt receiving controlled substance: No Vital Signs: 02/27/24 20:17 Temperature 97.8 F Temperature Source Oral Pulse Rate [Left] 87 Respiratory Rate 16 Blood Pressure [Right Arm] 196/94 H Blood Pressure Mean [Right Arm] 128 02 Sat by Pulse Oximetry 97 Orders (Tests/Meds): ED MEDICATIONS Generic Name Dose Route Start Last Admin Trade Name Fernanda PRN Reason Stop Dose Admin Amoxicillin/Clavulanate Potassium 1 each 02/27/24 20:57 Amoxicillin/Clavulanate Potassium 875/125mg Tablet PO 02/27/24 20:58 ONCE ONE Discontinued Medications Generic Name Dose Route Start Last Admin Trade Name Fernanda PRN Reason Stop Dose Admin Benzocaine/Butamben/Tetracaine HCl 1 gm 02/27/24 20:33 02/27/24 20:40 Tetracaine/Benzocaine/Butamben 56 Gm Walton TP 02/27/24 20:34 1 gm ONCE ONE Administration Lidocaine HCl 15 ml 02/27/24 20:33 02/27/24 20:40 Lidocaine 2% Viscous Elaine 15ml Udc PO 02/27/24 20:34 15 ml ONCE ONE Administration Medical Decision Narrative: In summary patient is a 78-year-old female past medical history described above who presents emergency department for evaluation of tooth pain. Patient is hemodynamically stable nontoxic-appearing upon arrival, afebrile, ranging her neck freely, no overt swelling or fluctuance on my exam. Given this patient will be treated symptomatically with viscous lidocaine dental balls and will be prescribed a course of Augmentin until she can follow-up with her dentist. Imaging was considered however based on physical exam is not necessary will be deferred. Patient is appropriate for discharge at this time was given return precautions. Critical Care Critical Care Time Critical Care Time: No
[2024-02-27] MEDS: AMOXICILLIN/CLAVULANATE POTASSIUM 875/125MG TABLET 1 EACH PO (21:04)
[2024-02-27 21:05] VITALS: BP 175/81; PULSE 84; RESP 16; TEMP 36.6; O2SAT 97
[2024-02-27 21:07] VITALS: BP 186/90; PULSE 84; RESP 20; TEMP 36.6; O2SAT 98
== END 2024-02-27 21:08 | disposition home or self-care (01) ==
PROVIDERS: Emergency Provider Emergency Medicine; PCP Family Medicine
DX: K08.89 Other specified disorders of teeth and supporting structures (principal)
CPT/HCPCS: 99283

== ENCOUNTER 2024-04-22 08:53 | Outpatient (CLI) | payer MEDICARE, SELFPAY ==
--- NOTE | 2024-04-22 09:01 | XR_ITS ---
FINAL REPORT TECHNIQUE: Bone mineral density was calculated of the lumbar spine and hip. CLINICAL HISTORY: SCREENING COMPARISON: 09/27/2021 FINDINGS: Using L1-4, the bone mineral density of the spine is 1.049 g/cm2, corresponding to T-score of 0.0. Using the left hip, the bone mineral density of the femoral neck is 0.696 g/cm2, corresponding to a T-score of -2.0. Using the right hip, the bone mineral density of the femoral neck is 0.698 g/cm?, corresponding to a T-score of -1.4. NOTE: T-score: Standard deviation compared with peak bone mass of young adult mean. *Following the recommendations of the International Society of Bone densitometry, classification of hip BMD is based on the lower of two T-scores; total hip or femoral neck. IMPRESSION: Diminished bone mineral density of the bilateral hips consistent with low bone density. The bone mineral density of the lumbar spine is normal, which is likely falsely elevated by bony sclerosis in the lower lumbar spine. Reviewed, Interpreted and Dictated by Ricardo Ford III, MD Transcribed by Li Pablo Authenticated and [facility]
== END 2024-04-22 23:59 | disposition home or self-care (01) ==
LOC: RAD 08:54
PROVIDERS: PCP Family Medicine; Visit Provider Family Medicine
DX: Z13.820 Encounter for screening for osteoporosis (principal); M85.88 Other specified disorders of bone density and structure, other site
CPT/HCPCS: 77080

== ENCOUNTER 2024-09-03 13:26 | Emergency (ER) | payer MEDICARE, SELFPAY ==
[2024-09-03 13:50] VITALS: BP 163/73; PULSE 89; RESP 19; TEMP 36.5; O2SAT 98; BMI 28.1
--- NOTE | 2024-09-03 14:01 | ED_ITS ---
Discharge Plan Disposition Patient Disposition: Home, Self-Care Condition: Good Prescriptions Prescriptions: New nystatin 100,000 unit/gram cream 1 applic topical BID 7 Days Qty: 15 2RF nystatin 100,000 unit/gram powder 1 applic topical BID 7 Days Qty: 15 2RF fluconazole 150 mg tablet 150 mg PO ONCE Qty: 1 0RF No Action celecoxib 200 mg capsule 200 mg PO DAILY Patient Comments: TAKE 1 CAPSULE BY MOUTH ONCE DAILY esomeprazole magnesium 40 mg capsule,delayed release(DR/EC) 40 mg PO DAILY Patient Comments: TAKE 1 CAPSULE BY MOUTH ONCE DAILY FOR 90 DAYS irbesartan 75 mg tablet 75 mg PO DAILY Patient Comments: TAKE 1 TABLET BY MOUTH ONCE DAILY FOR 90 DAYS atorvastatin 20 MG tablet 20 mg PO DAILY levothyroxine 75 MCG tablet 75 mcg PO DAILY Referrals Follow up/Referrals: Rajiv Quezada MD [Primary Care Provider] - See instructions Activity Restrictions/Add. Instructions Additional Instructions/Restrictions: Use the medications as directed. I prescribed you both nystatin cream and powder. You may not need to use both of these, but I want you to have the option of which to use. Take the diflucan tablet as directed. Follow up with your regular doctor. GO TO THE ER FOR ANY WORSENING SYMPTOMS Wear loose fitting clothes to allow air to circulate to the affected area as much time as you possibly can. Clinical Impressions Clinical Impression: Candidal skin infection Instructions Patient Instructions: Fluconazole, DI for Yeast Infection-Skin, Yeast Infection-Skin, Nystatin Topical Print Language Print Language: German Discharge ED Provider: Phuc Crocker [facility] General Stated complaint: Rash on upper abdomen Time Seen by Provider: 09/03/24 14:01 Related Data Home Medications ?Medication ?Instructions ?Recorded ?Confirmed atorvastatin 20 mg tablet 20 mg PO DAILY Cholesterol 10/21/17 09/03/24 levothyroxine 75 mcg tablet 75 mcg PO DAILY THYROID 10/21/17 09/03/24 celecoxib 200 mg capsule 200 mg PO DAILY 08/28/22 09/03/24 esomeprazole magnesium 40 mg 40 mg PO DAILY 09/03/24 09/03/24 capsule,delayed release irbesartan 75 mg tablet 75 mg PO DAILY 09/03/24 09/03/24 Previous Rx's ?Medication ?Instructions ?Recorded fluconazole 150 mg tablet 150 mg PO ONCE 1 dose #1 tab 09/03/24 nystatin 100,000 unit/gram topical 1 applic topical BID 7 days #15 09/03/24 cream grams nystatin 100,000 unit/gram topical 1 applic topical BID 7 days #15 09/03/24 powder grams Allergies Allergy/AdvReac Type Severity Reaction Status Date / Time No Known Allergies Allergy Verified 05/26/23 07:29 [facility] Disclaimer: The information contained in this section may have been updated after the patient was seen, as this information can be updated by other users. Medical History History of gastroesophageal reflux (GERD) Hyperlipidemia Hypertension Hypothyroid Osteoarthritis Surgical History H/O colonoscopy No significant past surgical history Family History Mother Family history of acute heart failure Father Family history of acute heart failure Social History Smoking Status: Never smoker second hand exposure: No alcohol intake: never substance use type: denies use current occupational status: employed household members: none housing: house current occupation: [employer] current occupational exposures/hazards: No caffeine: Yes ROS Obtained: Yes All systems reviewed & no additional complaints except as documented Constitutional Constitutional: Denies chills and Denies fever(s) Eyes Eyes: Denies eye discharge ENT Ears, Nose, Mouth, and Throat: Denies dizziness, Denies otalgia and Denies sore throat Cardiovascular Cardiovascular: Denies chest pain Respiratory Respiratory: Denies shortness of breath, Denies chest congestion, Denies cough, Denies stridor and Denies wheezing Gastrointestinal Gastrointestingal: Denies nausea or vomiting Musculoskeletal Musculoskeletal: Reports system reviewed and no additional complaints, except as documented and Denies arthralgias Integumentary/Breasts Skin/Breast: Reports as per HPI and Reports rash Neurologic Neurologic: Denies dizziness and Denies paresthesias Allergic/Immunologic Allergic/Immunologic: Denies wheezing Physical Exam General General appearance: alert and in no apparent distress Head Head exam: atraumatic, normocephalic and normal inspection Eye Eye exam: Present normal appearance, PERRL and EOMI ENT ENT exam: Present normal exam, normal oropharynx, mucous membranes moist, TM's normal bilaterally and normal external ear exam Neck Neck exam: Present normal inspection, full ROM and trachea midline; Absent meningismus or lymphadenopathy Chest Chest inspection: Present normal inspection and symmetric chest wall rise; Absent tenderness Respiratory Respiratory exam: Present normal lung sounds bilaterally; Absent respiratory distress Cardiovascular Cardiovascular exam: Present regular rate and normal rhythm; Absent JVD Abdominal Exam Abdominal exam: Present soft and normal bowel sounds; Absent distention, tenderness or guarding Extremities Exam Extremities exam: Present normal inspection, full ROM and normal capillary refill; Absent calf tenderness Back Exam Back exam: Present normal inspection; Absent tenderness Neurological Exam Neurological exam: Present alert and oriented X3 Psychiatric Psychiatric exam: Present normal affect and normal mood Skin Skin exam: Present rash Lymphatic Lymphatic Findings: no adenopathy Medical Decision Making Medical Records Medical records reviewed: No I reviewed the patient's medical records. Screening: Per USPSTF and CDC recommendations, given the prevalence of disease in our region, it is our hospital?s policy to screen for HIV and viral Hepatitis for all patients aged 18 and over and those with ongoing risk factors. Jonathon Inquiry Pt receiving controlled substance: No
[2024-09-03 14:25] VITALS: BP 163/73; PULSE 89; RESP 19; TEMP 36.5; O2SAT 98
--- OUTSIDE RECORDS SUMMARY | 2024-09-04 15:15 | XMS_ITS | Encounter Summary ---
Author Organization Healthcare Address [address] [place] [address] Care Team Providers Care Capacity Planning Manager Name Role Phone Rajiv Quezada MD Primary Care Provider [phone] Encounter Details Date Type Department Care Team (Latest Contact Info) Description 08/28/2022 Travel Social History Tobacco Use Types Packs/Day Years Used Date Smoking Tobacco: Never Smokeless Tobacco: Never Alcohol Use Standard Drinks/Week Comments Never 0 (1 standard drink = 0.6 oz pur e alcohol) Comments Unknown Sex and Gender Information Value Date Recorded Sex Assigned at Not on file Legal Sex Female 3:38 AM EST Gender Identity Not on file Sexual Orientation Not on file COVID-19 Exposure Response Date Recorded In the last 10 days, have yo u been in contact with someone who was confirmed or suspected to have Coronavirus/COVID-19? No / Unsure 08/28/2022 6:27 AM EST documented as of this encounter Plan of Treatment Not on file documented as of this encounter Visit Diagnoses Not on filedocumented in this encounter Care Teams Capacity Planning Manager Relationship Specialty Start Date End Date Rajiv Quezada MD [address] [place] [address] PCP - General 08/28/22 documented as of this encounter
--- OUTSIDE RECORDS SUMMARY | 2024-09-04 15:15 | XMS_ITS | Encounter Summary ---
Author Organization Healthcare Address [address] [place] [address] Care Team Providers Care Diet Aide Name Role Phone Rajiv Quezada MD Primary Care Provider [phone] Encounter Details Date Type Department Care Team (Latest Contact Info) Description 09/24/2022 Travel Social History Tobacco Use Types Packs/Day Years Used Date Smoking Tobacco: Never Smokeless Tobacco: Never Alcohol Use Standard Drinks/Week Comments Never 0 (1 standard drink = 0.6 oz pur e alcohol) PHQ-2 Answer Date Recorded Patient Health Questionnaire-2 Score 0 09/24/2022 PHQ-2A Answer Date Recorded Patient Health Questionnaire-2 Score 0 09/24/2022 Comments Unknown Sex and Gender Information Value Date Recorded Sex Assigned at Not on file Legal Sex Female 3:38 AM EST Gender Identity Not on file Sexual Orientation Not on file COVID-19 Exposure Response Date Recorded In the last 10 days, have yo u been in contact with someone who was confirmed or suspected to have Coronavirus/COVID-19? No / Unsure 09/24/2022 10:23 AM EST documented as of this encounter Plan of Treatment Not on file documented as of this encounter Visit Diagnoses Not on filedocumented in this encounter Additional Health Concerns Assessment Noted Time A fall risk assessment has been complete d for the patient 09/24/2022 11:05 AM EST documented as of this encounter Care Teams Diet Aide Relationship Specialty Start Date End Date Rajiv Quezada MD [address] [place] [address] PCP - General 08/28/22 documented as of this encounter
--- OUTSIDE RECORDS SUMMARY | 2024-09-04 15:15 | XMS_ITS | Encounter Summary ---
Author Organization Healthcare Address [address] [place] [address] Care Team Providers Care Electro Winning Operator Name Role Phone Rajiv Quezada MD Primary Care Provider [phone] Encounter Details Date Type Department Care Team (Latest Contact Info) Description 08/29/2022 Travel Social History Tobacco Use Types Packs/Day [...] on filedocumented in this encounter Care Teams Electro Winning Operator Relationship Specialty Start Date End Date Rajiv Quezada MD [address] [place] [address] PCP - General 08/28/22 documented as of this encounter
--- OUTSIDE RECORDS SUMMARY | 2024-09-04 15:15 | XMS_ITS | Encounter Summary ---
Author Organization Healthcare Address [address] [place] [address] Care Team Providers Care Multiple Launch Rocket System Crewmember Name Role Phone Rajiv Quezada MD Primary Care Provider [phone] Reason for Visit * Reason Comments Consult Encounter Details Date Type Department Care Team (Late st Contact Info) Description 09/24/2022 10:50 AM EST Office Visit [facility] [address] [place] [address] Maxx Hi MD [address] [place] [address] Pain in pelvis (Primary Dx) Social History Tobacco Use Types Packs/Day Years [...] AM EST documented as of this encounter Last Filed Vital Signs Vital Sign Reading Time Taken Comments Blood Pressure 142/81 09/24/2022 11:04 AM EST Pulse 78 09/24/2022 11:04 AM EST Temperature 36.7 ??C (98.1 ??F) 09/24/2022 11:[address] Respiratory Rate - - Oxygen Saturation 96% 09/24/2022 11:04 AM EST Inhaled Oxygen Concentration - - Weight 77.1 kg (170 lb) 09/24/2022 11:04 AM EST Height 166.4 cm (5' 5.5 ) 09/24/2022 11:04 AM ES T Body Mass Index 27.86 09/24/2022 11:04 AM EST documented in this encounter Miscellaneous Notes * Progress Notes - Karsten Boyd MD - 09/24/2022 10:50 AM EST 09/24/2022 ORTHOPEDIC TRAUMA CLINIC NOTE Injury/Tx: Pelvic ring injury treated non operatively after fall 08/28/22 HPI: April De 77 y.o. female with above injuries and LC 1 type pelvic ring injury after a fall. Patient ambulated physical therapy while inpatient was discharged home. This then she continues work with physical therapy using a walker to ambulate has mild pain but no limitations in her ambulation. Denies numbness or tingling denies recurrent falls or trauma. PAST MEDICAL HISTORY: Past Medical History: Diagnosis Date Arthritis Disease of thyroid gland HLD (hyperlipidemia) Hypertension Past Surgical History: History reviewed. No pertinent surgical history. Review of Systems: General: no fatigue, no weakness, no fevers, no chills, no night sweats Skin:no rashes, no sores, no lumps Head: no recent trauma Eyes:no blurring, no tearing, no itching Nose: no sneezing, no itching, no epistaxis Mouth: no hoarseness, no sore throat, no neck swelling Cardiac: no HTN, no palpitations, no dyspnea on exertion, no PND Respiratory: no shortness of air, no coughing, no wheezing, no sputum production GI: no loss of appetite, no nausea,no vomiting, no constipation, no diarrhea, no blood per rectum, no abdominal pain, no jaundice Urinary: no dysuria, no hematuria, no polyuria, no incontinence Vascular: no leg edema, no claudication Neurologic: no loss of sensation, no tingling, no numbness, no fainting, no blackouts, no seizures Family History: Family History Problem Relation Name Age of Onset Heart disease Mother Heart disease Father Medications: Current Outpatient Medications: acetaminophen (Tylenol 8 Hour) 650 MG ER tablet, Take 650 mg by mouth every 8 (eight) hours if needed. Do not crush, chew, or split., Disp: , Rfl: amLODIPine (Norvasc) 5 MG tablet, Take 5 mg by mouth 1 (one) time each day., Disp: , Rfl: ascorbic acid (Vitamin C) 1000 MG tablet, Take 1,000 mg by mouth 1 (one) time each day., Disp: , Rfl: atorvastatin (Lipitor) 20 MG tablet, Take 20 mg by mouth every night., Disp: , Rfl: Calcium Carb-Cholecalciferol (CALCIUM 600-D PO), Take 1 tablet by mouth 1 (one) time each day., Disp: , Rfl: MRNCHVC-MALEDJQIP-GAMZ PO, Take 1 tablet by mouth 1 (one) time each day., Disp: , Rfl: cholecalciferol (Vitamin D-3) 25 MCG (1000 UT) tablet, Take 1,000 Units by mouth 1 (one) time each day., Disp: , Rfl: Coenzyme Q10 (Q-SORB) 100 MG capsule, Take 100 mg by mouth 1 (one) time each day., Disp: , Rfl: cyanocobalamin (Vitamin B-12) 500 MCG tablet, Take 500 mcg by mouth 1 (one) time each day., Disp: ,Rfl: enoxaparin (Lovenox) 30 MG/0.3ML solution prefilled syringe, Inject 0.3 mL (30 mg total) under the skin 2 (two) times a day for 28 days., Disp: 16.8 mL, Rfl: 0 esomeprazole (NexIUM) [address] capsule, Take 20 mg by mouth 1 (one) time each day before breakfast.Do not open capsule., Disp: , Rfl: levothyroxine (Synthroid, Levoxyl) 75 MCG tablet, Take 75 mcg by mouth 1 (one) time each day., Disp: , Rfl: naloxone (Narcan) 4 mg/0.1 mL nasal spray, Administer 1 spray (4 mg total) into affected nostril(s)if needed for opioid reversal. Call 911. Give 4 mg (1 spray) into one nostril. Repeat every 2-3 minutes as needed, alternating nostrils, until medical assistance arrives., Disp: 1 each, Rfl: 0 omega-3 (Fish Oil) 1200 MG capsule, Take 1 capsule by mouth 1 (one) time each day., Disp: , Rfl: Probiotic Product (acidophilus probiotic blend) capsule, Take 1 capsule by mouth 1 (one) time each day., Disp: , Rfl: TURMERIC CURCUMIN PO, Take 1 capsule by mouth 1 (one) time each day., Disp: , Rfl: methocarbamol (Robaxin) 500 MG tablet, Take 1 tablet (500 mg total) by mouth 3 (three) times a day if needed for muscle spasms for up to 10 days., Disp: 30 tablet, Rfl: 0 Allergies: No Known Allergies Social History Social History Occupational History Not on file Tobacco Use Smoking status: Never Smokeless tobacco: Never Substance and Sexual Activity Alcohol use: Never Drug use: Never Sexual activity: Not on file MEDICATIONS Current Outpatient Medications: acetaminophen (Tylenol 8 Hour) 650 MG ER tablet, Take 650 mg by mouth every 8 (eight) hours if needed. Do not crush, chew, or split., Disp: , Rfl: amLODIPine (Norvasc) 5 MG tablet, Take 5 mg by mouth 1 (one) time each day., Disp: , Rfl: ascorbic acid (Vitamin C) 1000 MG tablet, Take 1,000 mg by mouth 1 (one) time each day., Disp: , Rfl: atorvastatin (Lipitor) 20 MG tablet, Take 20 mg by mouth every night., Disp: , Rfl: Calcium Carb-Cholecalciferol (CALCIUM 600-D PO), Take 1 tablet by mouth 1 (one) time each day., Disp: , Rfl: QHXRHYS-NVPAUWLEM-TXCZ PO, Take 1 tablet by mouth 1 (one) time each day., Disp: , Rfl: cholecalciferol (Vitamin D-3) 25 MCG (1000 UT) tablet, Take 1,000 Units by mouth 1 (one) time each day., Disp: , Rfl: Coenzyme Q10 (Q-SORB) 100 MG capsule, Take 100 mg by mouth 1 (one) time each day., Disp: , Rfl: cyanocobalamin (Vitamin B-12) 500 MCG tablet, Take 500 mcg by mouth 1 (one) time each day., Disp: ,Rfl: enoxaparin (Lovenox) 30 MG/0.3ML solution prefilled syringe, Inject 0.3 mL (30 mg total) under the skin 2 (two) times a day for 28 days., Disp: 16.8 mL, Rfl: 0 esomeprazole (NexIUM) [address] capsule, Take 20 mg by mouth 1 (one) time each day before breakfast.Do not open capsule., Disp: , Rfl: levothyroxine (Synthroid, Levoxyl) 75 MCG tablet, Take 75 mcg by mouth 1 (one) time each day., Disp: , Rfl: naloxone (Narcan) 4 mg/0.1 mL nasal spray, Administer 1 spray (4 mg total) into affected nostril(s)if needed for opioid reversal. Call 911. Give 4 mg (1 spray) into one nostril. Repeat every 2-3 minutes as needed, alternating nostrils, until medical assistance arrives., Disp: 1 each, Rfl: 0 omega-3 (Fish Oil) 1200 MG capsule, Take 1 capsule by mouth 1 (one) time each day., Disp: , Rfl: Probiotic Product (acidophilus probiotic blend) capsule, Take 1 capsule by mouth 1 (one) time each day., Disp: , Rfl: TURMERIC CURCUMIN PO, Take 1 capsule by mouth 1 (one) time each day., Disp: , Rfl: methocarbamol (Robaxin) 500 MG tablet, Take 1 tablet (500 mg total) by mouth 3 (three) times a day if needed for muscle spasms for up to 10 days., Disp: 30 tablet, Rfl: 0 ALLERGIES No Known Allergies PHYSICAL EXAM: LLE: S pelvis nontender to AP and lateral compression + extensor hallucis longus, flexor hallucis longus, tibialis anterior, gastrocnemius / soleus, peroneals Sensation intact to light touch superficial peroneal, deep peroneal, tibial, saphenous, and sural nerve distributions. Capillary refill less than 2 seconds. Palpable +2 dorsalis pedis and posterior tibialis pulses IMAGING: I have personally reviewed, and interpreted the patients imaging: Radiographs obtained today demonstrate a stable pelvis without any change in alignment fracture fragments since prior. Healing fractures anterior and posterior left- sided pelvis. ASSESSMENT: April De 77 y.o. female 4 weeks after and ulna non operatively treated left-sided pelvic ring injury PLAN: -patient doing so well, continue weight-bearing as tolerated activity as tolerated and to work withphysical therapy -follow-up on an as-needed basis from this point forward Karsten Boyd MD Orthopaedic Surgery Cosigned by Maxx Hi MD at 09/24/2022 2:05 PM EST Associated attestation - Maxx Hi MD - 09/24/2022 2:05 PM EST I saw and evaluated the patient with the resident/fellow. I discussed the case with the resident/fellow and agree with the findings and plan as documented. This patient's presenting and evaluated problem(s) are consistent with 1 acute illness or injury that poses a threat to life or bodily function documented in this encounter Plan of Treatment Not on file documented as of this encounter Results * XR Pelvis 3+ Views (09/24/2022 11:31 AM EST) Anatomical Region Laterality Modality Body, Pelvis Digital Radiogra phy Impressions 09/24/2022 12:01 PM EST Healing left pubic body and left inferior pubic ramus fracture. CRITICAL RESULT: ?? No. COMMUNICATION: Per this written report. Dictated by Lashanda Mitchell MD on 09/24/2022 11:59 AM Signed by Lashanda Mitchell MD on 09/24/2022 12:01 PM Narrative 09/24/2022 12:01 PM EST Exam/Procedure: XR PELVIS 3+ VIEWS ordered by MAXX HI, [id number] CLINICAL INDICATION: pain TECHNIQUE: XR PELVIS 3+ VIEWS COMPARISON: 08/29/2022 FINDINGS: Degenerative changes of the lumbar spine is noted. Mild degenerative changes of bilateral sacroiliac joints. Joint space of bilateral hips are well maintained. Healing fracture of the left pubic body and left inferior pubic ramus. Patient's known left sacral fracture is not well visualized. Procedure Note Lashanda Mitchell MD - 09/24/2022 Exam/Procedure: XR PELVIS 3+ VIEWS ordered by MAXX HI, [id number] CLINICAL INDICATION: pain TECHNIQUE: XR PELVIS 3+ VIEWS COMPARISON: 08/29/2022 FINDINGS: Degenerative changes of the lumbar spine is noted. Mild degenerativechanges of bilateral sacroiliac joints. Joint space of bilateral hips arewell maintained. Healing fracture of the left pubic body and left inferiorpubic ramus. Patient's known left sacral fracture is not well visualized. IMPRESSION: Healing left pubic body and left inferior pubic ramus fracture. CRITICAL RESULT: No. COMMUNICATION: Per this written report. Dictated by Lashanda Mitchell MD on 09/24/2022 11:59 AM Signed by Lashanda Mitchell MD on 09/24/2022 12:01 PM us Maxx Hi MD IMG XR PROCEDURES Final Resul t documented in this encounter Visit Diagnoses Diagnosis Pain in pelvis- Primary Pain in pelvis documented in this encounter Additional Health Concerns Assessment Noted Time A fall risk assessment has been complete d for the patient 09/24/2022 11:05 AM EST documented as of this encounter Care Teams Multiple Launch Rocket System Crewmember Relationship Specialty Start Date End Date Rajiv Quezada MD [address] [place] [address] PCP - General 08/28/22 documented as of this encounter
--- OUTSIDE RECORDS SUMMARY | 2024-09-04 15:15 | XMS_ITS | Clinical Summary ---
Author Organization Healthcare Address [address] [id number] Care Team Providers Care Online Services Manager Name Role Phone Rajiv Quezada MD Primary Care Provider [phone] Allergies No known active allergies Medications atorvastatin (Lipitor) 20 MG tablet Take 20 mg by mouth every night. Active amLODIPine (Norvasc) 5 MG tablet Take 5 mg by mouth 1 (one) time each day. Active levothyroxine (Synthroid, Levoxyl) 75 MCG tablet Take 75 mcg by mouth 1 (one) time each day. Active cyanocobalamin (Vitamin B-12) 500 MCG tablet Take 500 mcg by mouth 1 (one) time each day. Active TURMERIC CURCUMIN PO Take 1 capsule by mouth 1 (one) time each day. Active CALCIUM-MAGNESI UM-ZINC PO Take 1 tablet by mouth 1 (one) time each day. Active omega-3 (Fish Oil) 1200 MG capsule Take 1 capsule by mouth 1 (one) time each day. Active Coenzyme Q10 (Q-SORB) 100 MG capsule Take 100 mg by mouth 1 (one) time each day. Active Calcium Carb-Cholecalci ferol (CALCIUM 600-D PO) Take 1 tablet by mouth 1 (one) time each day. Active cholecalciferol (Vitamin D-3) 25 MCG (1000 UT) tablet Take 1,000 Units by mouth 1 (one) time each day. Active Probiotic Product (acidophilus probiotic blend) capsule Take 1 capsule by mouth 1 (one) time each day. Active ascorbic acid (Vitamin C) 1000 MG tablet Take 1,000 mg by mouth 1 (one) time each day. Active acetaminophen (Tylenol 8 Hour) 650 MG ER tablet Take 650 mg by mouth every 8 (eight) hours if needed. Do not crush, chew, or split. Active esomeprazole (NexIUM) [address] capsule Take 20 mg by mouth 1 (one) time each day before breakfast. Do not open capsule. Active methocarbamol (Robaxin) 500 MG tablet Take 1 tablet (500 mg total) by mouth 3 (three) times a day if needed for muscle spasms for up to 10 days. 30 tablet 09/04/2022 Active Active Problems Problem Noted Date Diagnosed Date Fracture of left superior pu bic ramus, closed, initial encounter 08/28/2022 Fracture of left inferior pu bic ramus, closed, initial encounter 08/28/2022 Closed fracture of sacrum, initial encounter 07/2022 Acquired hypothyroidism 08/28/2022 Rheumatoid arthritis involving multiple sites Closed fracture of multiple pubic rami, left, initial encounter 08/28/2022 Immunizations Name Administration Dates Next Due Moderna COVID-19 Vaccine ([place]) 12+ years 07/2021,10/31/2020 Family History Medical History Relation Name Comments Heart disease Father Heart disease Mother Relation Name Status Comments Father Mother Social History Tobacco Use Types Packs/Day Years Used Date Smoking Tobacco: Never Smokeless Tobacco: Never Tobacco Cessation:Counseling Given: Not Answered Alcohol Use Standard Drinks/Week Comments Never 0 [...] on file Sexual Orientation Not on file Last Filed Vital Signs Vital Sign Reading Time Taken Comments Blood Pressure 142/81 09/24/2022 11:04 AM EST Pulse 78 09/24/2022 11:04 AM EST Temperature 36.7 ??C (98.1 ??F) 09/24/2022 11:[address] Respiratory Rate 18 09/04/2022 7:35 AM EST Oxygen Saturation 96% 09/24/2022 11:04 AM EST Inhaled Oxygen Concentration - - Weight 77.1 kg (170 lb) 09/24/2022 11:04 AM EST Height 166.4 cm (5' 5.5 ) 09/24/2022 11:04 AM ES T Body Mass Index 27.86 09/24/2022 11:04 AM EST Plan of Treatment Health Maintenance Due Date Last Done Comments [facility]-Bone Density Scan 1944 [facility]-Medicare Annual Wellness (AWV) 1944 [facility]-Infant/Child/Adol SDOH Screenings 1944 [facility]- SDOH Screenings 1962 [facility]-Adult SDOH Screenings 1962 [facility]-Zoster Vaccines (1 of 2) 1994 [facility]-DTaP,Tdap,and Td Vaccine s (1 - Tdap) 10/01/2006 09/30/2006, 12/22/1996 [facility]-RSV Vaccine: 60+ Years o r (1 - 1-dose 75+ series) 2019 [facility]-Depression Screening 09/24/2023 09/24/2022 [id number] Vaccine ( season) 2024 11/28/2020, 10/31/2020 [facility]-Influenza Vaccine (#1) 06/19/202409/19, 09/24/2017 [facility]-Pneumococcal Vaccine: 65 + Years Completed 09/19/2021, 09/24/2017 [facility]-Obesity Intervention Completed 09/24/2022 [facility]-HIB Vaccines Aged Out No longer e ligible based on patient's age to complete this topic [facility]-HPV Vaccines Aged Out No longer e ligible based on patient's age to complete this topic [facility]-Hepatitis A Vaccines Aged Out No longer eligible based on patient's age to complete this topic [facility]-IPV Vaccines Aged Out No longer e ligible based on patient's age to complete this topic [facility]-Rotavirus Vaccines Aged Out No lo nger eligible based on patient's age to complete this topic Insurance [employer] MEDICARE Advance Directives * Full Code (Latest Code Status on File) Date Activated Date Inactivated Comments 09/04/2022 7:58 AM 09/04/2022 1:38 PM Question Answer Comments Patient has decision-making capacity? Yes Care Teams Online Services Manager Relationship Specialty Start Date End Date Rajiv Quezada MD [address] [facility] [address] [place] [address] PCP - General 08/28/22
--- OUTSIDE RECORDS SUMMARY | 2024-09-04 15:15 | XMS_ITS | Encounter Summary ---
Author Organization Healthcare Address [address] [place] [address] Care Team Providers Care Enterprise Architect Manager Name Role Phone Rajiv Quezada MD Primary Care Provider [phone] Encounter Details Date Type Department Care Team (Latest Contact Info) Description 09/24/2022 11:10 AM EST - 09/24/2022 11:59 PM EST [facility] En[facility] [address], [address] [place] [address] Pain in pelvis Discharge Disposition: Home or Self Care Social History Tobacco Use Types Packs/Day Years [...] AM EST documented as of this encounter Medications at Time of Discharge acetaminophen (Tylenol 8 Hour) 650 MG ER tablet Take 650 mg by mouth every 8 (eight) hours if needed. Do not crush, chew, or split. amLODIPine (Norvasc) 5 MG tablet Take 5 mg by mouth 1 (one) time each day. ascorbic acid (Vitamin C) 1000 MG tablet Take 1,000 mg by mouth 1 (one) time each day. atorvastatin (Lipitor) 20 MG tablet Take 20 mg by mouth every night. Calcium Carb-Cholecalcif joyce (CALCIUM 600-D PO) Take 1 tablet by mouth 1 (one) time each day. CALCIUM-MAGNESIU M-ZINC PO Take 1 tablet by mouth 1 (one) time each day. cholecalciferol (Vitamin D-3) 25 MCG (1000 UT) tablet Take 1,000 Units by mouth 1 (one) time each day. Coenzyme Q10 (Q-SORB) 100 MG capsule Take 100 mg by mouth 1 (one) time each day. cyanocobalamin (Vitamin B-12) 500 MCG tablet Take 500 mcg by mouth 1 (one) time each day. esomeprazole (NexIUM) [address] capsule Take 20 mg by mouth 1 (one) time each day before breakfast. Do not open capsule. levothyroxine (Synthroid, Levoxyl) 75 MCG tablet Take 75 mcg by mouth 1 (one) time each day. omega-3 (Fish Oil) 1200 MG capsule Take 1 capsule by mouth 1 (one) time each day. Probiotic Product (acidophilus probiotic blend) capsule Take 1 capsule by mouth 1 (one) time each day. TURMERIC CURCUMIN PO Take 1 capsule by mouth 1 (one) time each day. enoxaparin (Lovenox) 30 MG/0.3ML solution prefilled syringe Inject 0.3 mL (30 mg total) under the skin 2 (two) times a day for 28 days. 16.8 mL 09/04/2022 2 naloxone (Narcan) 4 mg/0.1 mL nasal spray Administer 1 spray (4 mg total) into affected nostril(s) if needed for opioid reversal. Call 911. Give 4 mg (1 spray) into one nostril. Repeat every 2-3 minutes as needed, alternating nostrils, until medical assistance arrives. 1 each 09/04/2022 3 documented as of this encounter Plan of Treatment Not on file documented as of this encounter Procedures Procedure Name Priority Date/Time Associated Diagnosis Comments XR PELVIS 3+ VIEWS Routine 09/24/2022 11 :31 AM EST Pain in pelvis documented in this encounter Results * XR Pelvis 3+ [...] Exam/Procedure: XR PELVIS 3+ VIEWS ordered by Deny [id number] CLINICAL INDICATION: pain TECHNIQUE: XR PELVIS 3+ [...] XR PELVIS 3+ VIEWS ordered by MAXX HI [id number] CLINICAL INDICATION: pain TECHNIQUE: XR PELVIS 3+ [...] this encounter Visit Diagnoses Diagnosis Pain in pelvis documented in this encounter Additional Health Concerns Assessment Noted Time A fall risk assessment has been complete d for the patient 09/24/2022 11:05 AM EST documented as of this encounter Care Teams Enterprise Architect Manager Relationship Specialty Start Date End Date Rajiv Quezada MD [address] [place] [address] PCP - General 08/28/22 documented as of this encounter
--- OUTSIDE RECORDS SUMMARY | 2024-09-04 15:15 | XMS_ITS | Encounter Summary ---
Author Organization Healthcare Address [address] [place] [address] Care Team Providers Care Glass Robot Operator Name Role Phone Rajiv Quezada MD Primary Care Provider [phone] Encounter Details Date Type Department Care Team (Latest Contact Info) Description 08/28/2022 3:51 AM EST - 08/28/2022 5:54 AM EST Hospital Encounter [facility] [address] [place] [phone] Examination Discharge Disposition: Home or Self Care Social [...] this encounter Medications at Time of Discharge methocarbamol (Robaxin) 500 MG tablet Take 1 tablet (500 mg total) by mouth 3 (three) times a day if needed for muscle spasms for up to 10 days. 30 tablet 09/04/2022 enoxaparin (Lovenox) 30 MG/0.3ML solution prefilled syringe [...] medical assistance arrives. 1 each 09/04/2022 3 oxyCODONE (Roxicodone) 5 MG immediate release tablet Take 1 tablet (5 mg total) by mouth every 6 (six) hours if needed for severe pain for up to 3 days. 12 tablet 09/04/2022 2 polyethylene glycol (Miralax) 17 g packet Take 17 g by mouth 2 (two) times a day for 15 days. Hold for loose stools 30 packet 09/04/2022 2 documented as of this encounter Plan of Treatment Not on file documented as of this encounter Procedures Procedure Name Priority Date/Time Associated Diagnosis Comments CT PELVIS WO IV CONTRAST Routine 08/28/2022 3:51 AM EST Examination documented in this encounter Results * CT Pelvis wo IV Contrast (08/28/2022 3:51 AM EST) Narrative IMAGING - 08/28/2022 3:51 AM EST This study was performed at an outside facility and has been loaded into the PACS system for reference only. ??This order has been auto-finalized and does not contain a result. us Imaging Upload Radiant IMG CT PROCEDURES Final R esult IMAGING documented in this encounter Visit Diagnoses Diagnosis Examination Unspecified examination documented in this encounter Care Teams Glass Robot Operator Relationship Specialty Start Date End Date Rajiv Quezada MD [address] [facility] [place] [address] [address] PCP - General 08/28/22 documented as of this encounter
--- OUTSIDE RECORDS SUMMARY | 2024-09-04 15:15 | XMS_ITS | Encounter Summary ---
Author Organization Healthcare Address [address] [id number] Care Team Providers Care Reexaminer Name Role Phone Rajiv Quezada MD Primary Care Provider [phone] Reason for Visit * Reason Comments Trauma Alert * Auth/Cert (Routine) Specialty Diagnoses / Procedures Referred By Viviana story Referred To Contact Diagnoses Closed fracture of multiple pubic rami, left, initial encounter ([facility]) Pelvic Fracture Iron Roberts MD [address] [place] [address] Phone: tel: fax: [facility] Emergency Department [address] [place] [address] Phone: tel: Referral ID Status Reason Start Date Expiration Date Visits Re quested Visits Authorized [id number] 1 1 Encounter Details Date Type Department Care Team (Latest Contact Info) Description 08/28/2022 5:55 AM EST - 09/04/2022 11:38 AM EST Hospital Encounter [facility] Inpatient [address] [place] [address] Dale Vazquez MD [address] [place] [address] Kay Herrera MD [address] [place] [address] Iron Roberts MD [address] [place] [address] Phyllis Lamar MD [address] [place] [phone] Closed fracture of multiple pubic rami, left, initial encounter ([facility]) (Primary Dx); Closed fracture of sacrum, unspecified portion of sacrum, initial encounter ([facility]); Closed fracture of sacrum, initial encounter ([facility]); Fracture of left inferior pubic ramus, closed, initial encounter ([facility]); Fracture of left superior pubic ramus, closed, initial encounter (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) Discharge Disposition: Home-Health Care [facility] Social History Tobacco Use Types Packs/Day Years [...] Sign Reading Time Taken Comments Blood Pressure 132/73 09/04/2022 7:35 AM EST Pulse 86 09/04/2022 7:35 AM EST Temperature 36.8 ??C (98.2 ??F) 09/04/2022 7:35 AM ES T Respiratory Rate 18 09/04/2022 7:35 AM EST Oxygen Saturation 95% 09/04/2022 7:35 AM EST Inhaled Oxygen Concentration - - Weight 83.6 kg (184 lb 4.9 oz) 08/30/2022 10:17 AM EST Height 167.6 cm (5' 6 ) 08/30/2022 10:17 AM EST Body Mass Index 29.75 08/30/2022 10:17 AM EST documented in this encounter Discharge Instructions * Attachments The following attachments cannot be sent through Care Everywhere. * Pelvic Fracture (Norwegian) * Bones, How They Heal (Norwegian) * Enoxaparin Prefilled Syringe (Norwegian) * Oxycodone Oral Tablet 5 mg (Norwegian) * Narcan Nasal Crowder 4 mg/0.1 mL (Norwegian) * Robaxin Oral Tablet 500 mg (Norwegian) * Miralax Powder for Oral Solution 17 gm (Norwegian) * Controlled Substance Discharge Sheet - [facility] () (Norwegian) documented in this encounter Medications at Time of Discharge [...] by mouth 1 (one) time each day. methocarbamol (Robaxin) 500 MG tablet Take 1 tablet (500 mg total) by mouth 3 (three) times a day if needed for muscle spasms for up to 10 days. 30 tablet 09/04/2022 omega-3 (Fish Oil) 1200 MG capsule Take [...] 09/04/2022 2 documented as of this encounter Miscellaneous Notes * Progress Notes - Key Schultz RN - 09/04/2022 11:38 AM EST Case Management Discharge Note Jade De 77 y.o. female CSN: [id number] Admission: 08/28/2022 5:55 AM Primary Problem: Closed fracture of multiple pubic rami, left, initial encounter (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) Availability of Care Givers (#Hours): 24 hours Family/Er[employer] Machine Operator(s) Readiness Assessed to care for patient at home: Yes Housing Circumstances-Z Codes: Housing Circumstances (select all that apply): None Applicable Patient Referred to Financial or Community Resources: Financial Resources: Other (Comment) (not indicated) Community Resources: Other (Comment) (not requested) Discharge Facility/Level of Care Needs: Discharge Facility/Level of Care Needs: home Patient's Choice of Community Agency(s): Patient's Choice of Community Agency(s): [facility] Patient/Family Anticipated Services at Transition: Patient/Family Anticipated Services at Transition: home health care, durable medical equipment ([facility]) DME/Equipment Needed after Discharge: Assistive Devices: bedside commode, walker, rolling Readmission Within the Last 30 Days: Readmission Within the Last 30 Days: current reason for admission unrelated to previous admission Medicare Documentation: Patient left before CM arrived Follow-up: CASE MANAGEMENT [address] [facility] [phone] Blair Clifton MD [address] [address] [facility] [email or web address] [facility] [address], [address] [facility] [phone] Stephanie Spaulding MD [address] [facility] [address] Discharge Transportation: Transportation Anticipated: family or friend will provide Has discharge transport been arranged?: Yes What day is the transport expected?: 09/04/22 Follow Up Transport: Family Additional Comments: Patient has assistance set up at home and will discharge today. [facility] updated. [facility] delivered DME on 09/03 to the room. Family will assist and provide transportation. Patient is aware and agreeable with discharge POC. Key Schultz RN * Consults - Maria Elena Kennedy APRN - 09/04/2022 10:19 AM ESTAssociated Order(s): Inpatient consult to Nephrology Inpatient consult to Nephrology Consult performed by: Maria Elena Kennedy APRN Consult ordered by: Celia Albarado APRN Reason for consult: Fragility fracture, Osteoporosis [facility] Consult Note Patient Jade De; 77 y.o. female Attending Iron Roberts MD Admit Date 08/28/2022 Hospital Day 7 Reason for Consult: Asked by Iron Roberts MD for fragility fracture. Ms. Jade De is a 77 y.o. female with a history of HTN, HLD, RA, and hypothyroidism whopresented from an OSH with left SPR, IPR and sacral ala fractures. Renal bone mineral service consulted for osteoporosis. She notes she lost her balance at home while trying to put her shoes on. She notes she fell on to her right hip, when she fell. She notes her pain was located on her left side when she tried to ambulate post the fall. She did not require surgical intervention. Patient notes no history of previous fracture. She notes a BMD was completed ~2- 3 years ago. She was instructed to start vitamin D and calcium supplements at that time. She notes she is very active and continues to work at the [employer]. Prior to this fall, she had no recent falls or use of adaptive equipment at home. She notes she has been on synthroid for a very long time. She denies any steroid use, and has been on only celebrex for her arthritis. PMH: HTN, HLD, thyroid disorder, on synthroid, Arthritis Osteoporosis history: DEXA: 2-3yrs ago, was started on vit d and calcium following. Falls:none prior to this Ambulation: independent Prior fractures: none Prior treatment for osteoporosis:calcium/vitamin d Cancer: none Radiation therapy:none Kidney stones: none CKD:none Steroid intake: none Dental issues:no impending Menopause: unsure ~50s, HRT: none Smoking: denies Alcohol: denies Diet:not restricted Weight:83.6kg Job: caregiver at local [employer] Exercise/Physical activity: not limited Home living situation: independent REVIEW OF SYSTEMS Constitutional: No fever, weight loss. Eyes: No vision changes. HEENT: No headache, hearing loss, mouth sores. Cardiovascular: No chest pain or discomfort, lower extremity swelling. Respiratory: No , cough, hemoptysis; shortness of breath on exertion. Gastrointestinal: No heartburn, loss of appetite, nausea, vomiting, bowel disturbance. Genitourinary: No hematuria, incontinence; dysuria, retention Musculoskeletal: Not ambulatory Integumentary: No rash, photosensitivity, bruising Neurological: No seizure, vertigo, focal weakness, paresthesia. Psychiatric: No anxiety. No depressed mood. Endocrine: No polyuria, hirsutism. Hematologic/Lymphatic: No bruising, blood transfusion Past Medical History: Past Medical History: Diagnosis Date Arthritis Disease of thyroid gland HLD (hyperlipidemia) Hypertension Family History Problem Relation Name Age of Onset Heart disease Mother Heart disease Father Past Surgical History: History reviewed. No pertinent surgical history. Family History Problem Relation Name Age of Onset Heart disease Mother Heart disease Father Social History Tobacco Use Smoking status: Never Smokeless tobacco: Never Substance Use Topics Alcohol use: Never No Known Allergies Medications: Prior to Admission medications Medication Sig Start Date End Date Taking? Authorizing Provider acetaminophen (Tylenol 8 Hour) 650 MG ER tablet Take 650 mg by mouth every 8 (eight) hours if needed. Do not crush, chew, or split. Yes Historical Provider, amLODIPine (Norvasc) 5 MG tablet Take 5 mg by mouth 1 (one) time each day. Yes Historical Provider, ascorbic acid (Vitamin C) 1000 MG tablet Take 1,000 mg by mouth 1 (one) time each day. Yes Historical Provider, atorvastatin (Lipitor) 20 MG tablet Take 20 mg by mouth every night. Yes Historical Provider, Calcium Carb-Cholecalciferol (CALCIUM 600-D PO) Take 1 tablet by mouth 1 (one) time each day. Yes Historical Provider, VKMZUOZ-EVWMXFQEI-VHSG PO Take 1 tablet by mouth 1 (one) time each day. Yes Historical Provider, celecoxib (CeleBREX) 200 MG capsule Take 200 mg by mouth 1 (one) time each day. Yes Historical Provider, cholecalciferol (Vitamin D-3) 25 MCG (1000 UT) tablet Take 1,000 Units by mouth 1 (one) time each day. Yes Historical Provider, Coenzyme Q10 (Q-SORB) 100 MG capsule Take 100 mg by mouth 1 (one) time each day. Yes Historical Provider, cyanocobalamin (Vitamin B-12) 500 MCG tablet Take 500 mcg by mouth 1 (one) time each day. Yes Historical Provider, enoxaparin (Lovenox) 30 MG/0.3ML solution prefilled syringe Inject 0.3 mL (30 mg total) under the skin 2 (two) times a day for 28 days. 09/04/22 10/02/22 Yes Celia Albarado APRN esomeprazole (NexIUM 24HR) [address] capsule Take 20 mg by mouth 1 (one) time each day before breakfast. Do not open capsule. Yes Historical Provider, levothyroxine (Synthroid, Levoxyl) 75 MCG tablet Take 75 mcg by mouth 1 (one) time each day. Yes Historical Provider, methocarbamol (Robaxin) 500 MG tablet Take 1 tablet (500 mg total) by mouth 3 (three) times a day if needed for muscle spasms for up to 10 days. 09/04/22 09/14/22 Yes Celia Albarado APRN omega-3 (Fish Oil) 1200 MG capsule Take 1 capsule by mouth 1 (one) time each day. Yes Historical Provider, oxyCODONE (Roxicodone) 5 MG immediate release tablet Take 1 tablet (5 mg total) by mouth every 6 (six) hours if needed for severe pain for up to 3 days. 09/04/22 09/07/22 Yes Celia Albarado APRN polyethylene glycol (Miralax) 17 g packet Take 17 g by mouth 2 (two) times a day for 15 days. Hold for loose stools 09/04/22 09/19/22 Yes Celia Albarado APRN Probiotic Product (acidophilus probiotic blend) capsule Take 1 capsule by mouth 1 (one) time each day. Yes Historical Provider, TURMERIC CURCUMIN PO Take 1 capsule by mouth 1 (one) time each day. Yes Historical Provider, naloxone (Narcan) 4 mg/0.1 mL nasal spray Administer 1 spray (4 mg total) into affected nostril(s) if needed for opioid reversal. Call 911. Give 4 mg (1 spray) into one nostril. Repeat every 2-3 minutes as needed, alternating nostrils, until medical assistance arrives. 09/04/22 09/04/23 Celia Albarado APRN acetaminophen, 500 mg, Oral, q6h ROWAN amLODIPine, 5 mg, Oral, Nightly atorvastatin, 20 mg, Oral, Nightly calcium carbonate, 1,000 mg, Oral, Daily cholecalciferol, 1,000 Units, Oral, Daily enoxaparin, 30 mg, Subcutaneous, BID levothyroxine, 75 mcg, Oral, Daily before breakfast pantoprazole, 40 mg, Oral, Daily before breakfast polyethylene glycol, 17 g, Oral, BID senna, 8.6 mg, Oral, Nightly PHYSICAL EXAMINATION Visit Vitals BP 132/73 (BP Location: Left arm, Patient Position: Lying) Pulse 86 Temp 36.8 ??C (98.2 ??F) (Oral) SpO2 95% Constitutional: No acute distress. Weight 83.6 kg (184 lb 4.9 oz) Height 1.676 m (5' 6 ) Body mass index is 29.75 kg/m??. Body surface area is 1.97 meters squared. HEENT: normal. Cardiovascular: No JVD, no edema Pulmonary: Normal effort of breathing. Abdominal: no distension Musculoskeletal: Normal LE movements; NWB status Skin: No rashes or lesions. Neurologic: No focal deficits Psychiatric: Orientated to person, place, and time: Normal Mood and affect LAB RESULTS Renal Panel: Lab Results Component Value Date NA 133 (L) 09/03/2022 K 4.4 09/03/2022 CL 93 (L) 09/03/2022 CO2 30 (H) 09/03/2022 BUN 15 09/03/2022 CREATININE 0.64 09/03/2022 EGFR 90.6 09/03/2022 ALBUMIN 4.8 08/28/2022 MBD: Lab Results Component Value Date CALCIUM 9.3 09/03/2022 MG 2.2 08/28/2022 VITAMIN D 25 Lab Results Component Value Date VITD25 37.3 08/29/2022 HEPATIC Lab Results Component Value Date ALT 19 08/28/2022 AST 25 08/28/2022 ALKPHOS 50 08/28/2022 CBC: Lab Results Component Value Date WBC 7.15 08/29/2022 RBC 3.77 (L) 08/29/2022 HGB 11.3 08/29/2022 HCT 34.1 08/29/2022 PLT 228 08/29/2022 MCV 91 08/29/2022 MCH 30.0 08/29/2022 MCHC 33.1 08/29/2022 RDW 13.1 08/29/2022 NRBC 0.0 08/29/2022 Radiology: XR Pelvis 3+ Views Result Date: 09/01/2022 Exam/Procedure: XR PELVIS 3+ VIEWS ordered by IRON ROBERTS, [id number] CLINICAL INDICATION: post-mobility with PT TECHNIQUE: XR PELVIS 3+ VIEWS COMPARISON: 08/28/2022 FINDINGS: Left obturator ring fracture is again noted. Left sacral fracture is obscured by overlying bowel gas. Femoral heads align with the acetabula. No new fracture is noted. Left obturator ring fracture is in similar alignment to the prior study. Left sacral alar fracture is not well-visualized on the current exam. CRITICAL RESULT: No. COMMUNICATION: Per this written report. Dictated by Ronny Brooke MD on 09/01/2022 6:44 AM Signed by Ronny Brooke MD on 09/01/2022 6:[address] Pelvis wo IV Contrast Result Date: 08/28/2022 This study was performed at an outside facility and has been loaded into the PACS system for reference only. This order has been auto-finalized and does not contain a result. XR Chest 1 View Result Date: 08/28/2022 Exam/Procedure: XR CHEST 1 VIEW, XR PELVIS 1 OR 2 VIEWS ordered by DALE VAZQUEZ, [id number] CLINICAL INDICATION: fall from standing TECHNIQUE: Single AP view of the chest. Single view of the pelvis.COMPARISON: CT bony pelvis from outside hospital, 3 hours prior. Chest x-ray from outside hospital,3 hours prior. FINDINGS: No focal consolidation. Decreased lung volumes. Heart and mediastinal contours are within normal limits. No pneumothorax. No pleural effusion. No acute osseous findings within the imaged chest. Redemonstration of comminuted superior and inferior left pubic rami fractures. The pubic symphysis remains well aligned. The femoral heads are well-seated within the acetabula bilaterally. The SI joints are well aligned. No evidence of acute injury within the imaged chest Comminuted superior and inferior left pubic rami fractures. Suspected left sacral fracture also present. CRITICAL RESULT: No. COMMUNICATION: Per this written report.. Approved by Ziggy Cruz MD on 08/28/2022 6:24 AM By electronically signing this report, I, the attending physician, attest that I have personally reviewed the images/data for the above examination(s) and agree with the final edited report. Dictated by Ziggy Beavers MD on 08/28/2022 6:24 AM Signed by Seun Yates MD on 08/28/2022 6:30 AM XR Chest 1 View Result Date: 08/28/2022 This study was performed at an outside facility and has been loaded into the PACS system for reference only. This order has been auto-finalized and does not contain a result. XR Pelvis 1 or 2 Views Result Date: 08/28/2022 Exam/Procedure: XR CHEST 1 VIEW, XR PELVIS 1 OR 2 VIEWS ordered by DALE VAZQUEZ, [id number] CLINICAL INDICATION: fall from standing TECHNIQUE: Single AP view of the chest. Single view of the pelvis.COMPARISON: CT bony pelvis from outside hospital, 3 hours prior. Chest x-ray from outside hospital,3 hours prior. FINDINGS: No focal consolidation. Decreased lung volumes. Heart and mediastinal contours are within normal limits. No pneumothorax. No pleural effusion. No acute osseous findings within the imaged chest. Redemonstration of comminuted superior and inferior left pubic rami fractures. The pubic symphysis remains well aligned. The femoral heads are well-seated within the acetabula bilaterally. The SI joints are well aligned. No evidence of acute injury within the imaged chest Comminuted superior and inferior left pubic rami fractures. Suspected left sacral fracture also present. CRITICAL RESULT: No. COMMUNICATION: Per this written report.. Approved by Ziggy Cruz MD on 08/28/2022 6:24 AM By electronically signing this report, I, the attending physician, attest that I have personally reviewed the images/data for the above examination(s) and agree with the final edited report. Dictated by Ziggy Beavers MD on 08/28/2022 6:24 AM Signed by Seun Yates MD on 08/28/2022 6:30 AM XR Pelvis 1 or 2 Views Result Date: 08/28/2022 This study was performed at an outside facility and has been loaded into the PACS system for reference only. This order has been auto-finalized and does not contain a result. CT Bony Pelvis Result Date: 08/28/2022 Exam/Procedure: CT BONY PELVIS ordered by DALE VAZQUEZ, [id number] CLINICAL INDICATION: Pelvic fracture TECHNIQUE: Multiple axial CT images were obtained through level of pelvis per CT Bony Pelvis protocol. The axial CT data set was used to generate high resolution reformatted images in the coronal and sagittal planes to facilitate diagnostic accuracy and treatment planning. Total DLP (Dose-Length Product): 270.76 mGy.cm. Please note: The reported value represents the total of one or more individual components during the CT acquisition on this date and at this time, and as such, the same value may appear in more than one CT report depending on the interpreting/reporting physicians. COMPARISON: CT bony pelvis from outside hospital, 4 hours prior. FINDINGS: Comminuted fractures involving the left superior and inferior pubic rami. The pubic symphysis remain well aligned. Nondisplaced involving the left sacral aorta The femoral heads are well seated within the styloid bilaterally. The SIjoints are well aligned. Mild soft tissue edema adjacent to the fracture sites. Prominent disc space narrowing at L5-S1 level with associated endplate sclerosis and osteophyte formation. Distended urinary bladder, with no evidence of wall thickening. Prior hysterectomy. The visualized small and large bowel are nondilated. Comminuted mildly displaced fractures involving the left superior and inferior pubic rami. Nondisplaced left sacral ala fracture. CRITICAL RESULT: No. COMMUNICATION: Per this written report. Approvedby Ziggy Cruz MD on 08/28/2022 6:28 AM By electronically signing this report, I, the attending physician, attest that I have personally reviewed the images/data for the above examination(s) and agree with the final edited report. Dictated by Ziggy Cruz MD on 08/28/2022 6:28 AM Signed by Seun Yates MD on 08/28/2022 6:38 AM ASSESSMENT/PLAN: Ms. Jade De is a 77 y.o. female with a history of HTN, HLD, RA, and hypothyroidism whopresented from an OSH with left SPR, IPR and sacral ala fractures. Renal bone mineral service consulted for osteoporosis. Osteoporosis history: Past DXA 2-3yrs ago Past fractures none Past treatment- calcium and vitamin D Risk factors for bone loss: Age Postmenopausal status RA Labs show normal cr, calcium, and magnesium. Vitamin D 37.3. Clinical impression: Patient likely has age-related osteoporosis; complicating factors: long-term synthroid use Clinical assessment of recurrent fracture risk: mod Recommendations: Continue Vit D Continue oral calcium supplementation Patient getting discharged at time of visit. Will pursue further lab testing as an outpatient. Diet Would benefit from increasing dietary protein intake to 60 g per day; consider nutrition referral and protein supplements.. Fall Prevention: Address fall risk Discharge referral: Please enter ambulatory referral request prior to discharge for follow up in bone clinic with Jasson/Luciano Meyers. Please let us also know prior to discharge so we can make sure of the coordination. She will need DXA and bone markers (levels will be artefctually increased with acute # situation) as an outpatient and speedy institution of treatment for osteoporosis. Thank you for referral and the opportunity to participate in Ms. Jade De's care. Please let me know if any additional questions Cosigned by Stephanie Spaulding MD at 09/14/2022 1:57 PM EST Associated attestation - Stephanie Spaulding MD - 09/14/2022 1:57 PM EST The patient was seen only by Advanced Practice Provider ([facility]). * Care Plan - Lashanda Dao RN - 09/04/2022 9:18 AM EST Problem: Adult Inpatient Plan of Care Goal: Plan of Care Review Outcome: Ongoing, Progressing Flowsheets (Taken 09/04/2022 0917) Progress: improving Plan of Care Reviewed With: patient Goal: Patient-Specific Goal (Individualized) Outcome: Ongoing, Progressing Goal: Absence of Hospital-Acquired Illness or Injury Outcome: Ongoing, Progressing Goal: Optimal Comfort and Wellbeing Outcome: Ongoing, Progressing Goal: Readiness for Transition of Care Outcome: Ongoing, Progressing Problem: Pain Acute Goal: Acceptable Pain Control and Functional Ability Outcome: Met Problem: Self-Care Deficit Goal: Improved Ability to Complete Activities of Daily Living Outcome: Met Problem: Mobility Impairment Goal: Optimal Mobility Outcome: Met Problem: Fall Injury Risk Goal: Absence of Fall and Fall-Related Injury Outcome: Ongoing, Progressing * Discharge Summary - Mary Bae APRN - 09/04/2022 8:03 AM EST Hospitalization Admit Date/Time: 08/28/2022 5:55 AM Admitting Attending: Iron Roberts Discharge Date: 09/04/22 Discharge Attending Physician: Iron Roberts Md PCP name and Address: Rajiv Quezada MD [address] [id number] / [place] [id number] Referring provider name and address: Blair Clifton MD [address] [id number] Chief Concern, Brief History of Present Illness, and Hospital Course Mrs. De is a 77 year old female with a PMH of HTN, arthritis, hypothyroidism, hyperlipidemia. She had a mechanical fall in her home. She was able to get up by herself when she experienced left groin pain. She presented to OSH and diagnosed with pelvic fractures then transferred to . Orthopedics provided recommendations that her pelvic fractures are non-operative, and to proceed with PT/OT,weight bearing as tolerated. She has progressed with therapy while inpatient and has reached her inpatient goals. During her hospital course, she was found to be hyponatremic. Gatorade and fluids encouraged. She will return home with home health. Follow up with PCP on NA, TSH levels. Surgeries and Procedures Procedures performed in this encounter Procedures POC Ultrasound - Bedside Medication List .. acetaminophen 650 MG ER tablet Commonly known as: Tylenol 8 Hour Take 650 mg by mouth every 8 (eight) hours if needed. Do not crush, chew, or split. acidophilus probiotic blend capsule Take 1 capsule by mouth 1 (one) time each day. amLODIPine 5 MG tablet Commonly known as: Norvasc Take 5 mg by mouth 1 (one) time each day. ascorbic acid 1000 MG tablet Commonly known as: Vitamin C Take 1,000 mg by mouth 1 (one) time each day. atorvastatin 20 MG tablet Commonly known as: Lipitor Take 20 mg by mouth every night. CALCIUM 600-D PO Take 1 tablet by mouth 1 (one) time each day. CUWMDGL-PGTPAARLO-LFVP PO Take 1 tablet by mouth 1 (one) time each day. cholecalciferol 25 MCG (1000 UT) tablet Commonly known as: Vitamin D-3 Take 1,000 Units by mouth 1 (one) time each day. cyanocobalamin 500 MCG tablet Commonly known as: Vitamin B-12 Take 500 mcg by mouth 1 (one) time each day. enoxaparin 30 MG/0.3ML solution prefilled syringe Commonly known as: Lovenox Inject 0.3 mL (30 mg total) under the skin 2 (two) times a day for 28 days. levothyroxine 75 MCG tablet Commonly known as: Synthroid, Levoxyl Take 75 mcg by mouth 1 (one) time each day. methocarbamol 500 MG tablet Commonly known as: Robaxin Take 1 tablet (500 mg total) by mouth 3 (three) times a day if needed for muscle spasms for up to 10 days. naloxone 4 mg/0.1 mL nasal spray Commonly known as: Narcan Administer 1 spray (4 mg total) into affected nostril(s) if needed for opioid reversal. Call 911. Give 4 mg (1 spray) into one nostril. Repeat every 2-3 minutes as needed, alternating nostrils, untilmedical assistance arrives. NexIUM 24HR [address] capsule Generic drug: esomeprazole Take 20 mg by mouth 1 (one) time each day before breakfast. Do not open capsule. omega-3 1200 MG capsule Commonly known as: Fish Oil Take 1 capsule by mouth 1 (one) time each day. oxyCODONE 5 MG immediate release tablet Commonly known as: Roxicodone Take 1 tablet (5 mg total) by mouth every 6 (six) hours if needed for severe pain for up to 3 days. polyethylene glycol 17 g packet Commonly known as: Miralax Take 17 g by mouth 2 (two) times a day for 15 days. Hold for loose stools Q-SORB 100 MG capsule Take 100 mg by mouth 1 (one) time each day. TURMERIC CURCUMIN PO Take 1 capsule by mouth 1 (one) time each day. Where to Get Your Medications These medications were sent to [facility] - [place], [place] - [address] [facility] [id number] enoxaparin 30 MG/0.3ML solution prefilled syringe methocarbamol 500 MG tablet naloxone 4 mg/0.1 mL nasal spray oxyCODONE 5 MG immediate release tablet polyethylene glycol 17 g packet Discharge Diagnosis Medical Problems Active and Resolved Hospital Problems Hospital Fracture of left superior pubic ramus, closed, initial encounter (CMS/HCC) Fracture of left inferior pubic ramus, closed, initial encounter (CMS/HCC) Closed fracture of sacrum, initial encounter (CMS/[facility]) Acquired hypothyroidism Rheumatoid arthritis involving multiple sites ([facility]) * (Principal) Closed fracture of multiple pubic rami, left, initial encounter ([facility]) Post Discharge Instructions Outpatient Follow-Up Future Appointments Date Time Provider Department Center 09/24/2022 10:50 AM Seun Cervantes MD [facility] Test Results Pending At Discharge Pending Labs Order Current Status Sodium, Random, Urine Collected (09/02/22 0500) Pertinent Physical Exam At Time of Discharge Physical Exam Vitals and nursing note reviewed. Constitutional: Appearance: Normal appearance. HENT: Mouth/Throat: Mouth: Mucous membranes are moist. Cardiovascular: Rate and Rhythm: Normal rate and regular rhythm. Pulmonary: Effort: Pulmonary effort is normal. Breath sounds: Normal breath sounds. No wheezing, rhonchi or rales. Abdominal: General: Bowel sounds are normal. Palpations: Abdomen is soft. Musculoskeletal: Right lower leg: No edema. Left lower leg: No edema. Skin: General: Skin is warm. Capillary Refill: Capillary refill takes less than 2 seconds. Neurological: Mental Status: She is alert and oriented to person, place, and time. Psychiatric: Mood and Affect: Mood normal. Behavior: Behavior normal. Discharge Disposition/Condition Disposition: Home with Home Health Condition: Stable (s/sx potential problems absent or manageable) I spent >30 minutes of patient care and instruction time in preparation for this discharge. Cosigned by Celia Albarado APRN at 09/04/2022 2:26 PM EST Associated attestation - Celia Albarado APRN - 09/04/2022 2:26 PM EST I saw and evaluated Ms. De with Mary Bae APRN resident. She is doing well this AM and looking forward to discharge. Pain controlled. I discussed w/ her that I prescribed 5 mg oxycodone tablets, but she may split these in half and just take 2.5 mg as her pain lessens. Additionally, let her know that she could resume Celebrex if she felt it was helpful for her chronic arthritis pain. * Progress Notes - Key Schultz RN - 09/03/2022 1:18 PM EST Case Management Adult Progress Note Jade De 77 y.o. female CSN: [id number] Admission: 08/28/2022 5:55 AM Primary Problem: Closed fracture of multiple pubic rami, left, initial encounter (CMS/[facility]) Anticipated Discharge Date: TBD Has Discharge Plans Changed? Yes HWA with [facility] Housing Circumstances: Not Applicable Housing Circumstances Action Taken: Other None Additional Comments Per Team Provider. Down graded to [facility] with DME. Patient needs one more day to work with PT. Joaquin DAWSON accepted the patient for HHPT. DME delivered to the room on 09/02. Patient working on gettingassistance at home. CM will assist with discharge POC. Key Schultz RN * Progress Notes - Kanwal Vincent - 09/03/2022 11:11 AM EST Physical Therapy Treatment Patient Name: Jade De Today's Date: 09/03/2022 PT Discharge Recommendations: Home with assistance, Home health OT, Home health PT Equipment Recommended: Rolling walker, Bedside commode Subjective Pt agreed to session. She states she is planning to contact family and friends to ensure appropriate assistance at home upon DC. Participants in Care Family/Caregiver Present: Yes Family/Caregiver: (sister) Presentation Oxygen Therapy: None (Room air) Pre-Session: Supine, Head of bed elevated Post-Session: Sitting in chair Patient positioned for comfort and pressure relief at end of session, all needs met. Precautions Left Lower Extremity Weight Bearing Status: Weight Bearing as Tolerated Objective Pain Pt with no complaints of pain. Delirium Screening Vaughan Agitation Sedation Scale (RASS): Alert and calm Confusion Assessment Method-ICU (CAM-ICU/PCAM-ICU) Feature 3: Altered Level of Consciousness: Negative Bed Mobility Bed Mobility Exam: Rolling/Turning Level of [place]: Independent Bed Mobility Exam: Scooting/Bridging Level of [place]: Independent Bed Mobility Exam: Supine to Sit Level of [place]: Independent Transfers Transfer Exam: Sit to stand Level of [place]: Modified independence Assistive Device: Walker, rolling Transfer Exam: Stand to Sit Level of [place]: Modified independence Assistive Device: Walker, rolling Toilet Transfer Level of [place]: Modified independence Assistive Device: Walker, rolling Ambulation Device: Rolling walker Apparatus: Gait belt Assistance: Standby assist, Modified independent Distance : 150 feet Therapeutic Activity (33 minutes) Pt participated in therapeutic activity with focus on functional endurance and strengthening and balance training. Gait Training (10 minutes) Pt received verbal instruction and physical demonstration technique required for ascending and descending stair steps. Stairs Rails : Bilateral Assistance: Contact guard Number of Stairs: 3 steps Stair Training Interventions: Pt recieved verbal cues to sequencing of LEs up with the good and down with the bad. She also received cues for effective use of B UE at handrails to assist with eccentric lowering while descending stairs. Assessment Pt responded well to session with no adverse s/s. Pt progressed with gait trial with uneven surfaceincluding stairs. PT Recommendations Discharge Destination: Home with assistance, Home health OT, Home health PT Discharge Equipment: Rolling walker, Bedside commode Plan Continue per PT POC with focus on functional mobility . PT Goals PT GOAL DETAILS Goal Established Date Time Frame Goal Status PT Goal 1: Pt will ambulate greater than or equal to 200 feet with AAD. 08/29/22 2 weeks PT Goal 2: Pt will be independent with HEP. 08/29/22 2 weeks PT Goal 3: Pt will be educated regarding discharge reccomendations. 08/29/22 2 weeks PT Goal 4: Pt will perform all transfers with modified independent with AAD. 08/29/22 2 weeks PT Goal 5: Pt will be OOBTC greater than or equalt to one hour. 08/29/22 2 weeks Written by Kanwal Vincent on 09/03/22 at 1:07 PM. * Progress Notes - Mary Bae, JANICE - 09/03/2022 11:00 AM EST Images from the original note were not included. Hospital Medicine Progress Note Hospital Day 6 09/03/22 Subjective No acute events overnight reported. She reports that the decrease in oxycodone has helped her pain,but did not cause a lot of sleepiness. She has tried using the Robaxin medication with good effect.She reports using the Purwick at HS but getting up during the daytime to walk into the bathroom. She reports having to pee several times again last night. She is trying to figure out a safe plan to return home since she doesn't qualify for inpatient rehab. She will work on contacting people from mosque and her family today to establish help over the next couple of weeks. Review of Systems Constitutional: Negative for fever. Respiratory: Negative for shortness of breath. Cardiovascular: Negative for chest pain, palpitations and leg swelling. Gastrointestinal: Negative. Genitourinary: Negative for difficulty urinating. Musculoskeletal: Positive for arthralgias. Neurological: Positive for weakness. Negative for dizziness, syncope and light-headedness. All other systems reviewed and are negative. Objective Physical Exam Vitals and nursing note reviewed. Constitutional: General: She is not in acute distress. Appearance: Normal appearance. Cardiovascular: Rate and Rhythm: Normal rate and regular rhythm. Pulmonary: Effort: Pulmonary effort is normal. No respiratory distress. Breath sounds: Normal breath sounds. No wheezing. Abdominal: General: Bowel sounds are normal. Palpations: Abdomen is soft. Musculoskeletal: General: Tenderness present. Right lower leg: No edema. Left lower leg: No edema. Neurological: Mental Status: She is alert and oriented to person, place, and time. Motor: Weakness present. Psychiatric: Mood and Affect: Mood normal. Behavior: Behavior normal. Judgment: Judgment normal. Last Recorded Vitals Blood pressure 123/68, pulse 90, temperature 36.6 ??C (97.9 ??F), temperature source Oral, resp. rate 16, height 1.676 m (5' 6 ), weight 83.6 kg (184 lb 4.9 oz), SpO2 97 %. Results (Last 48 Hrs) Recent Labs Osmolality, Urine [[id number]] (Normal) Collected: 09/02/22 0936 Updated: 09/02/22 1004 Lab Status: Final result Specimen Source: Urine, Clean Catch Osmolality, Urine 449 mOsm/kg Osmolality, Plasma [[id number]] (Abnormal) Collected: 09/02/22 0424 Updated: 09/02/22 0837 Lab Status: Final result Specimen Source: Blood, Venous Osmolality, Plasma 269 mOsm/Kg Extra Tubes [[id number]] Collected: 09/02/22429 Updated: 09/02/22701 Lab Status: Final result Specimen Source: Blood, Venous Narrative: The following orders were created for panel order Extra Tubes. Procedure Abnormality Status --------- ------ Lavender Top[[id number]] Final result Please view results for these tests on the individual orders. Lavender Top [[id number]] Collected: 09/02/22429 Updated: 09/02/22701 Lab Status: Final result Specimen Source: Blood, Venous Extra Hold for add-ons. Basic Metabolic Panel, Plasma [[id number]] (Abnormal) Collected: 09/02/22423 Updated: 09/02/22512 Lab Status: Final result Specimen Source: Blood, Venous Glucose, Plasma 100 mg/dL BUN, Plasma 18 mg/dL Creatinine, Plasma 0.61 mg/dL BUN/Creatinine Ratio 30 Sodium, Plasma 130 mmol/L Potassium, Plasma 4.3 mmol/L Chloride, Plasma 93 mmol/L CO2, Plasma 27 mmol/L Anion Gap 10 mmol/L Total Calcium, Plasma 9.0 mg/dL eGFRcr 91.6 mL/min/1.73m*2 Medications Scheduled: acetaminophen, 1,000 mg, Oral, q6h ROWAN amLODIPine, 5 mg, Oral, Nightly atorvastatin, 20 mg, Oral, Nightly bisacodyl, 10 mg, Rectal, Once calcium carbonate, 1,000 mg, Oral, Daily celecoxib, 200 mg, Oral, Daily cholecalciferol, 1,000 Units, Oral, Daily enoxaparin, 30 mg, Subcutaneous, BID levothyroxine, 75 mcg, Oral, Daily before breakfast pantoprazole, 40 mg, Oral, Daily before breakfast polyethylene glycol, 17 g, Oral, BID senna, 8.6 mg, Oral, Nightly Continuous: As needed: melatonin, 3 mg, Nightly PRN ondansetron ODT, 4 mg, q6h PRN oxyCODONE, 2.5 mg, q6h PRN Or oxyCODONE, 5 mg, q6h PRN sodium chloride, 10 mL, q8h PRN And sodium chloride, 10 mL, PRN Assessment/Plan Principal Problem: Closed fracture of multiple pubic rami: Left superior pubic ramus, left inferior pubic ramus and sacral fracture - Fell at home on 08/27/22 - Non-operative per ortho. - Activity: WBAT to LLE - Bone Mineral Metabolism team consulted. - Continue cholecalciferol and calcium supplementation - Decreased scheduled acetaminophen related to age >75. Oxycodone 2.5mg every 6 hours as needed,and methocarbamol as needed. - Continue scheduled bowel regimen-Last BM 09/03/22 - Lovenox 30mg BID for next 5 weeks. Stop date 10/02/22. Hyponatremia - Stable at 133. Admission NA 132. Asymptomatic at this time. - Holding Tramadol. Using Oxycodone for pain control. - TSH- 12.8- Could be elevated due to recent trauma of fall and hospitalization. Patient to f/u with PCP and to recheck TSH as outpatient. Chronic Problems: Hypertension, Essential -Stable. Continue Amlodipine. Hypothyroidism -Continue Levothyroxine - F/U with PCP outpatient to recheck TSH. Hyperlipidemia - Continue Atorvastatin Rheumatoid Arthritis - Discontinue Celebrex as patient reports that it doesn't seem to be helping. BMI -BMI 29.7 Complicates all aspects of care. Diet: Regular VTE: Lovenox Code status: Full Code Disposition: Home with Home Health tomorrow 09/04/22. Family to transport. Mary Bae APRN [facility] Medicine Cosigned by Celia Albarado APRN at 09/03/2022 4:40 PM EST Associated attestation - Celia Albarado APRN - 09/03/2022 4:40 PM EST I saw and evaluated Ms. De with Mary Bae APRN resident. She is feeling well and pain controlled. Per PT, she is meeting all rehab goals. General: no apparent distress Skin: warm and dry Respiratory: even and unlabored respirations Extremities: no cyanosis, clubbing, edema Neuro: alert and oriented Psych: appropriate mood and behavior Assessment/plan: Left SPR, IPR and sacral ala fractures - Non-op management - Pain control as below - Anticipate DC home tomorrow w/ HH and assistance Hyponatremia - Stable at 133 now - TSH was elevated but may be skewed in setting of acute injury--follow-up with PCP in 4-6 weeks for recheck * Consults - Obi Matthews - 09/03/2022 10:05 AM EST Adult Nutrition Evaluation Note Jade De 77 y.o. female CSN: [id number] Room/Bed 223/223A Nutrition evaluation type: assessment Reason for evaluation: [facility] Hospital course: 77 y o F presents to ED 08/28 with left inferior and superior pubic rami fractures, and left sacral fracture after falling onto her left hip at home. Plan to d/c with home health 09/03. Plan for non-operative management of fractures. Pt noted with hyponatremia. Dispo noted. Past medical/ surgical history: PMH: HTN, HLD, Arthritis, disease of the thyroid gland. Social history: - Additional comments: Visited pt in room. Pt denies n/v/d/c, and issues chewing or swallowing. Pt reports having a good appetite, she has eaten oatmeal, eggs, potatoes, and sausage today. Reports a UBW of 170#, denies anyrecent weight changes. Pt anticipates discharging tomorrow, says that she plans to get her meals through a senior [employer] center once she gets home. Pt drinks Boost at home. Vitals and Basic Assessment: BP: 109/66 Temp: 37.2 ??C (98.9 ??F) Oxygen Therapy: None (Room air) O2 Delivery Method: Nasal cannula [place] Coma Scale Score: 15 Basilio Scale Score: 20 Last BM Date: 09/02/22 GI Symptoms: None Allergies: NKFA Medications: Amlodipine, Lipitor, Dulcolax, Tums, Cholecalciferol, Synthyroid, Protonix, Miralax, Senna. Meds were reviewed: Yes Labs: Results from last 7 days Lab Units 09/03/22 0623 09/02/22 0424 08/31/22 0428 SODIUM mmol/L 133* 130* 130* POTASSIUM mmol/L 4.4 4.3 4.2 CHLORIDE mmol/L 93* 93* 94* CO2 mmol/L 30* 27 28 BUN mg/dL 15 18 12 CREATININE mg/dL 0.64 0.61 0.55* EGFR mL/min/1.73m*2 90.6 91.6 94.0 GLUCOSE mg/dL 102* 100* 107* CALCIUM mg/dL 9.3 9.0 8.7* Anthropometrics: Height: 167.6 cm (5' 6 ) Weight: 83.6 kg (184 lb 4.9 oz) BMI (Calculated): 29.76 Weight Evaluation: Overweight (BMI 25-29.9) [place] Body Weight (kg): 59 Percent [place] Body Weight: 142 Adjusted Body Weight (kg): 65 Wt Readings from Last 10 Encounters: 08/30/22 83.6 kg (184 lb 4.9 oz) Estimated Needs: Kcal/ K-30 Kcal Provided: 9711-8466 Kcal Needs Based On: Adjusted weight Gm Protein/ Kg : 1.2-1.5 Protein Provided: 78-117 Protein Needs Based On: Adjusted weight Fluid Provided: per team Current Nutrition Intake: Diet Order: Adult Diet Diet Texture: Regular Percent Meals Eaten (%): 100% x 1 meal. Diet Experience and Nutrition History: Diet Education Provided: Will monitor Pertinent home medications: Amlodipine, Vitamin C, Lipitor, Calcium Carb- Cholecalciferol, Ouhsfyd-Frfukbnwa-Gopx, Cholecalciferol, Vitamin B-12, Esomeprazole, Synthyroid, Fish oil, Probiotics, Tumeric. Jehovah'S Witness needs: none noted. Nutrition Focused Physical Exam: Physical exam performed on (date): 09/03 Temples (muscles): None Clavicle (muscle): None Shoulder (muscle): None Orbital (fat): None Triceps (fat): None Assessment of Malnutrition: Malnutrition Identified: No Nutrition Problem: Increased nutrient needs protein related to increased metabolic demand caused by left inferior and superior pubic rami fractures, and left sacral fracture as evidenced by increased needs for healing. Status of Nutrition Diagnosis: New Nutrition Interventions and Recommendations: -Continue regular diet. -Rec Boost Plus chocolate BID. -MVI with minerals daily. Nutrition Monitoring and Goals: -PO intake >75%. -Monitor intakes, BM, skin integrity. Acuity Level: 1 Obi Matthews Cosigned by Mary Marquez at 09/04/2022 12:07 PM EST Associated attestation - Mary Marquez RD - 09/04/2022 12:07 PM EST Cosigned by: Mary Marquez RD, NAVNEET * Care Plan - Lashanda Dao RN - 09/03/2022 10:00 AM EST Problem: Adult Inpatient Plan of Care Goal: Plan of Care Review Outcome: Ongoing, Progressing Flowsheets (Taken 09/03/2022 1000) Progress: improving Plan of Care Reviewed With: patient Goal: Patient-Specific Goal (Individualized) Outcome: Ongoing, Progressing Goal: Absence of Hospital-Acquired Illness or Injury Outcome: Ongoing, Progressing Goal: Optimal Comfort and Wellbeing Outcome: Ongoing, Progressing Goal: Readiness for Transition of Care Outcome: Ongoing, Progressing Problem: Pain Acute Goal: Acceptable Pain Control and Functional Ability Outcome: Ongoing, Progressing Problem: Self-Care Deficit Goal: Improved Ability to Complete Activities of Daily Living Outcome: Ongoing, Progressing Problem: Mobility Impairment Goal: Optimal Mobility Outcome: Ongoing, Progressing Problem: Fall Injury Risk Goal: Absence of Fall and Fall-Related Injury Outcome: Ongoing, Progressing * Care Plan - Candido Day - 09/02/2022 9:59 PM EST Problem: Pain Acute Goal: Acceptable Pain Control and Functional Ability Outcome: Ongoing, Progressing Problem: Self-Care Deficit Goal: Improved Ability to Complete Activities of Daily Living Outcome: Ongoing, Progressing Problem: Mobility Impairment Goal: Optimal Mobility Outcome: Ongoing, Progressing Problem: Fall Injury Risk Goal: Absence of Fall and Fall-Related Injury Outcome: Ongoing, Progressing Problem: Adult Inpatient Plan of Care Goal: Readiness for Transition of Care Outcome: Ongoing, Progressing * Consults - Angelito Gale - 09/02/2022 6:21 PM EST Pastoral Care Note Referral From: Software Quality Tester initiated Pastoral Care Provided For: Patient Patient Profile: Consult Reasons: Continuation of care Spiritual Assessment: Support Systems/ Spiritual Resources: Emilia, Family Coping Skills: Strong Interventions: Interventions Provided: Prayer, Emotional support Pastoral Care Outcomes: Patient Outcomes: Is knowledgeable about [employer] Provided pastoral presence and prayer with the patient at her request. * Care Plan - Walter Smith RN - 09/02/2022 3:21 PM EST Problem: Adult Inpatient Plan of Care Goal: Patient-Specific Goal (Individualized) Outcome: Ongoing, Progressing Flowsheets (Taken 09/02/2022 0700) Patient-Specific Goals (Include Timeframe): Pt will verbalize an acceptable LOP throughout the shift Individualized Care Needs: pain Anxieties, Fears or Concerns: denies * Progress Notes - Mary Bae APRN - 09/02/2022 2:47 PM EST Images from the original note were not included. Hospital Medicine Progress Note Hospital Day 5 09/02/22 Subjective No acute events overnight reported. She reports that the decrease in oxycodone has helped her pain,but did not cause a lot of sleepiness. She has tried using the Robaxin medication with good effect.She reports using the Purwick at HS but getting up during the daytime to walk into the bathroom. She reports having to pee over 4 times last night, but only two times during the day. She is trying to figure out a safe plan to return home if she doesn't qualify for inpatient rehab. She will work on contacting people from mosque and her family today to establish help over the next couple of weeks. Review of Systems Constitutional: Negative for fever. Respiratory: Negative for shortness of breath. Cardiovascular: Negative for chest pain, palpitations and leg swelling. Gastrointestinal: Negative. Genitourinary: Negative for difficulty urinating. Musculoskeletal: Positive for arthralgias. Neurological: Positive for weakness. Negative for dizziness, syncope and light-headedness. All other systems reviewed and are negative. Objective Physical Exam Vitals and nursing note reviewed. Constitutional: General: She is not in acute distress. Appearance: Normal appearance. Cardiovascular: Rate and Rhythm: Normal rate and regular rhythm. Pulmonary: Effort: Pulmonary effort is normal. No respiratory distress. Breath sounds: Normal breath sounds. No wheezing. Abdominal: General: Bowel sounds are normal. Palpations: Abdomen is soft. Musculoskeletal: General: Tenderness present. Right lower leg: No edema. Left lower leg: No edema. Neurological: Mental Status: She is alert and oriented to person, place, and time. Motor: Weakness present. Psychiatric: Mood and Affect: Mood normal. Behavior: Behavior normal. Judgment: Judgment normal. Last Recorded Vitals Blood pressure 111/70, pulse 80, temperature 36.7 ??C (98 ??F), temperature source Oral, resp. rate20, height 1.676 m (5' 6 ), weight 83.6 kg (184 lb 4.9 oz), SpO2 95 %. Results (Last 48 Hrs) Recent Labs Osmolality, Urine [[id number]] (Normal) Collected: 09/02/22 0936 Updated: 09/02/22 1004 Lab Status: Final result Specimen Source: Urine, Clean Catch Osmolality, Urine 449 mOsm/kg Osmolality, Plasma [[id number]] (Abnormal) Collected: 09/02/22 0424 Updated: 09/02/22 0837 Lab Status: Final result Specimen Source: Blood, Venous Osmolality, Plasma 269 mOsm/Kg Extra Tubes [[id number]] Collected: 09/02/22429 Updated: 09/02/22701 Lab Status: Final result Specimen Source: Blood, Venous Narrative: The following orders were created for panel order Extra Tubes. Procedure Abnormality Status --------- ------ Lavender Top[[id number]] Final result Please view results for these tests on the individual orders. Lavender Top [[id number]] Collected: 09/02/22429 Updated: 09/02/22701 Lab Status: Final result Specimen Source: Blood, Venous Extra Hold for add-ons. Basic Metabolic Panel, Plasma [[id number]] (Abnormal) Collected: 09/02/22423 Updated: 09/02/22512 Lab Status: Final result Specimen Source: Blood, Venous Glucose, Plasma 100 mg/dL BUN, Plasma 18 mg/dL Creatinine, Plasma 0.61 mg/dL BUN/Creatinine Ratio 30 Sodium, Plasma 130 mmol/L Potassium, Plasma 4.3 mmol/L Chloride, Plasma 93 mmol/L CO2, Plasma 27 mmol/L Anion Gap 10 mmol/L Total Calcium, Plasma 9.0 mg/dL eGFRcr 91.6 mL/min/1.73m*2 Medications Scheduled: acetaminophen, 1,000 mg, Oral, q6h ROWAN amLODIPine, 5 mg, Oral, Nightly atorvastatin, 20 mg, Oral, Nightly bisacodyl, 10 mg, Rectal, Once calcium carbonate, 1,000 mg, Oral, Daily celecoxib, 200 mg, Oral, Daily cholecalciferol, 1,000 Units, Oral, Daily enoxaparin, 30 mg, Subcutaneous, BID levothyroxine, 75 mcg, Oral, Daily before breakfast pantoprazole, 40 mg, Oral, Daily before breakfast polyethylene glycol, 17 g, Oral, BID senna, 8.6 mg, Oral, Nightly Continuous: As needed: melatonin, 3 mg, Nightly PRN ondansetron ODT, 4 mg, q6h PRN oxyCODONE, 2.5 mg, q6h PRN Or oxyCODONE, 5 mg, q6h PRN sodium chloride, 10 mL, q8h PRN And sodium chloride, 10 mL, PRN Assessment/Plan Principal Problem: Closed fracture of multiple pubic rami: Left superior pubic ramus, left inferior pubic ramus and sacral fracture - Fell at home on 08/27/22 - Non-operative per ortho. - Activity: WBAT to LLE - Bone Mineral Metabolism team consulted. - Continue cholecalciferol and calcium supplementation - Continue scheduled Acetaminophen. Oxycodone 2.5mg every 6 hours as needed, and methocarbamol as needed. - Continue scheduled bowel regimen-Last BM 09/02/22 - Lovenox 30mg BID for next 5 weeks. Stop date 10/02/22. Hyponatremia - Stable at 130. Admission NA 132. Asymptomatic at this time. - Holding Tramadol. Using Oxycodone for pain control. - Send urine sample. - Check TSH in AM - Repeat BMP in AM. Chronic Problems: Hypertension, Essential -Stable. Continue Amlodipine. Hypothyroidism -Check TSH in AM -Continue Levothyroxine Hyperlipidemia - Continue Atorvastatin Rheumatoid Arthritis - Continue Celebrex and Acetaminophen. BMI -BMI 29.7 Complicates all aspects of care. Diet: Regular VTE: Lovenox Code status: Full Code Disposition: Home with Home Health tomorrow 09/03/22 pending safe plan implemented with friends andfamily. Mary Bae FAILURE ANALYSIS ENGINEER [facility] Medicine Cosigned by Tiffany Blair PA at 09/02/2022 5:13 PM EST Associated attestation - Tiffany Blair PA - 09/02/2022 5:13 PM EST The patient was seen and assessed with the Advanced Practice Provider with impression as noted below. Subjective: therapy at bedside, patient now appropriate for HWA. States she will have assistance intermittently during day while her children work, plans to contact friends/family today to arrange assist for next few weeks. Agreeable to HH PT/OT. Voiding spontaneously, mainly at night. Discussed avoiding Purewick, encourage BSC or toilet use instead. Physical exam GEN: sitting on shower chair in bathroom, NAD RESP: normal breath sounds all lung cardenas on room air CV: RRR, no murmur GI: soft, NT/ND, + BS EXT: no pedal edema, pulses 2+ bilaterally; tenderness left groin Assessment/Plan - Closed pubic rami and sacral fractures s/p mechanical fall: non-op management, pain controlled oncurrent regimen. Possible discharge home tomorrow with HH and assist, patient confirming assistancetoday. DME ordered. - Hypochloremic hyponatremia: urine Na pending, Uosm 449, TSH/FT4 ordered - RA: hold celebrex as patient notes no improvement with use, continue APAP and post-op pain regimen * Progress Notes - Kanwal Vincent M - 09/02/2022 10:16 AM EST Physical Therapy Treatment Patient Name: Jade De Today's Date: 09/02/2022 PT Discharge Recommendations: Home with assistance, Home health OT, Home health PT Equipment Recommended: Rolling walker, Bedside commode Subjective Pt agreed to session. She states she has adequate assistance via her 4 children and her [employer] family. Participants in Care Family/Caregiver Present: Yes Family/Caregiver: (sister) Presentation Oxygen Therapy: None (Room air) Lines and Tubes: Intravenous access Pre-Session: Sitting in chair Post-Session: Sitting in chair, Lines intact, RN notified Post-Session Comments: Pt in restroom seated on shower chair at sink. Sister present in room as well as FAILURE ANALYSIS ENGINEER. Patient positioned for comfort and pressure relief at end of session, all needs met. Precautions Left Lower Extremity Weight Bearing Status: Weight Bearing as Tolerated Objective Pain Pt denies pain at rest but endorses pelvic pain in weight-bearing and movement. Pt unable to quantify. She was positioned for comfort following session. Delirium Screening Vaughan Agitation Sedation Scale (RASS): Alert and calm Confusion Assessment Method-ICU (CAM-ICU/PCAM-ICU) Feature 3: Altered Level of Consciousness: Negative Bed Mobility Bed Mobility Exam: Rolling/Turning Level of [place]: Stand-by assist Bed Mobility Exam: Scooting/Bridging Level of [place]: Stand-by assist Bed Mobility Exam: Supine to Sit Level of [place]: Stand-by assist Bed Mobility Exam: Sit to Supine Level of [place]: Stand-by assist Transfers Transfer Exam: Sit to stand Level of [place]: Modified independence Assistive Device: Walker, rolling Transfer Exam: Stand to Sit Level of [place]: Modified independence Assistive Device: Walker, rolling Transfer Exam: Bed to Chair/Chair to Bed Level of [place]: Modified [place] Assistive Device: Walker, rolling Ambulation Device: Rolling walker Apparatus: Gait belt Assistance: Standby assist Distance : 150 feet - Verbal cues required for postural correction Therapeutic Exercise (39 minutes) Pt participated in functional mobility activities listed above to improve strength and balance. During bed mobility activity, Verbal and tactile cues required to facilitate alternative movement patterns to improve technique due to increased pain and weakness associated with current mobility restrictions and acute orthopedic injuries. Pt required verbal cues during gait activity to improve posture to facilitate mm activation and decrease compensatory patterns. Assessment Pt responded well to session with no adverse s/s. Pt with significant improved mobility during session, no longer requires acute rehabilitation. Pt is now appropriate to return home with assistance and DME stated below. Spoke with supervising PT, Ludivina Nur and team regarding updated recommendations. PT Recommendations Discharge Destination: Home with assistance, Home health OT, Home health PT Discharge Equipment: Rolling walker, Bedside commode Plan Continue per PT POC with focus on functional mobility . PT Goals PT GOAL DETAILS Goal Established Date Time Frame Goal Status PT Goal 1: Pt will ambulate greater than or equal to 200 feet with AAD. 08/29/22 2 weeks PT Goal 2: Pt will be independent with HEP. 08/29/22 2 weeks PT Goal 3: Pt will be educated regarding discharge reccomendations. 08/29/22 2 weeks PT Goal 4: Pt will perform all transfers with modified independent with AAD. 08/29/22 2 weeks PT Goal 5: Pt will be OOBTC greater than or equalt to one hour. 08/29/22 2 weeks Written by Kanwal Vincent on 09/02/22 at 11:25 AM. Cosigned by Ludivina Nur at 09/02/2022 12:26 PM EST Associated attestation - Ludivina Nur - 09/02/2022 12:26 PM EST As supervising therapist I have read and agree with documentation entered by dental assistant teacher on this patient. * Progress Notes - Danette Patel - 09/02/2022 10:15 AM EST Occupational Therapy Treatment Patient Name: Jade De Today's Date: 09/02/2022 OT Discharge Recommendations: Home with assistance, Home health PT, Home health OT Equipment Recommended: Rolling walker, Bedside commode Subjective Pt agreeable to OT. Participants in Care Family/Caregiver Present: Yes Family/Caregiver: (Sister) Presentation Oxygen Therapy: None (Room air) Lines and Tubes: Intravenous access Pre-Session: Sitting in chair Post-Session: Sitting on shower chair; Positioned at sink for hygiene tasks; FAILURE ANALYSIS ENGINEER and sister present in room RN agreeable to session. Pt positioned for comfort and pressure relief at end of session. Precautions Left Lower Extremity Weight Bearing Status: Weight Bearing as Tolerated Objective Pain Pt with no c/o pain at rest; states left pelvis hurts during mobility, but is unable to provide numerical rating. Pt positioned for comfort following session. Delirium Screening Vaughan Agitation Sedation Scale (RASS): Alert and calm Confusion Assessment Method-ICU (CAM-ICU/PCAM-ICU) Feature 3: Altered Level of Consciousness: Negative Cognition Cognition Overall Cognitive Status: Within Functional Limits Self-Care Interventions (10 minutes) Pt participated in ADLs including preparatory mobility, grooming, and dressing tasks. OT provided education regarding use of sock aid to assist with lower body dressing; verbal instruction and visualdemonstration provided. Pt demonstrated appropriate use of sock aid, though then denied interest inhaving sock aid for home use. Grooming Grooming Level of Assistance: Independent Grooming Where Assessed: Chair level Pt demonstrated ability to release bilateral UE support on walker when in standing position in prepfor participation with standing grooming tasks. Lower Extremity Dressing Sock Level of Assistance: Setup, Sock aid, Verbal cues Therapeutic Activity (30 minutes) Pt participated in therapeutic activities to improve tolerance for upright and increase functional endurance needed for the completion of ADLs and progression of mobility. Increased time provided to allow patient to adjust to positional changes and initiate independent movement. Pt was on room air during session with no c/o SOA; OT provided for pursed lip breathing during activity. . Pt transitioned supine to/from sit with SBA; OT lowered the HOB to simulate home environment and provided verbalcues for compensatory techniques to decrease pain during transitional movements. Pt was able to walk in barrios with rolling walker to help facilitate ability to return to ADLs in the natural environment. OT provided education regarding general home safety including removal of throw rugs and importance of maintaining clear pathways within the home. Discussed discharge planning as patient's current level of function is appropriate for discharge home with assist, rolling walker, and BSC. Pt advised on placing BSC frame over standard toilet to increase seat height and provide arm rests to assist with transfer. Pt reported understanding of all discharge education. Sister reports concerns regardinglevel of available assist, patient encouraged to contact family and friends to ensure adequate assist is available. Bed Mobility Bed Mobility Exam: Rolling/Turning Level of B[place]: Stand-by assist Bed Mobility Exam: Scooting/Bridging Level of [place]: Stand-by assist Bed Mobility Exam: Supine to Sit Level of B[place]: Stand-by assist (Performed with HOB lowered to simulate home environment) Bed Mobility Exam: Sit to Supine Level of [place]: Stand-by assist (Performed with HOB lowered to simulate home environment) Transfers Transfer Exam: Sit to stand Level of [place]: Modified independence Assistive Device: Walker, rolling Transfer Exam: Stand to Sit Level of B[place]: Modified independence Assistive Device: Walker, rolling Transfer Exam: Bed to Chair/Chair to Bed Level of B[place]: Modified [place] Assistive Device: Walker, rolling Balance Postural Appearance Posture: Within Functional Limits Static Sitting Balance Static Sitting-Level of Assistance: Independent Assessment Pt has progressed well with mobility and ADLs. Pt's current level of function is appropriate for discharge home with assist, rolling walker, BSC, and home health OT/PT. Pt will benefit from continuedOT services to further promote return to previous level of function. OT Recommendations Discharge Destination: Home with assistance, Home health PT, Home health OT Discharge Equipment: Rolling walker, Bedside commode Plan Continue OT plan of care. Goals OT GOAL DETAILS Goal Established Date Time Frame Goal Status OT Goal 1: Pt will demonstrate independence with HEP by discharge. 08/29/22 2 weeks OT Goal 2: Pt will demonstrate min assist with toilet transfer x1 08/29/22 2 weeks OT Goal 3: Pt will demonstrate grooming in standing at sink with SBA x1 08/29/22 2 weeks Written by Danette Patel on 09/02/22 at 11:39 AM. * Progress Notes - Key Schultz RN - 09/01/2022 3:08 PM EST Case Management Adult Progress Note Jade De 77 y.o. female CSN: [id number] Admission: 08/28/2022 5:55 AM Primary Problem: Closed fracture of multiple pubic rami, left, initial encounter ([facility]) Anticipated Discharge Date: TBD Has Discharge Plans Changed? No Housing Circumstances: Not Applicable Housing Circumstances Action Taken: Other None Additional Comments Discussed with Team Provider. Acute rehab. Pending accepting facility. CM will assist with placement discharge POC. Key Schultz, RN * Progress Notes - Tiffany Blair PA - 09/01/2022 2:19 PM EST Subjective: No reported acute events overnight. Reports drowsiness yesterday evening after taking oxycodone, falling asleep while eating dinner, though with significant improvement in pain. Interested in taking additional dose today but hesitant to do so until after PT to prevent sedation. Consuming po intake consistently with increase in UOP last 24h. BM yesterday evening without straining. Review of Systems Constitutional: Negative for chills and fever. HENT: Negative. Respiratory: Negative for cough and shortness of breath. Cardiovascular: Negative for chest pain and palpitations. Gastrointestinal: Negative for abdominal pain, constipation, diarrhea and nausea. Genitourinary: Negative for difficulty urinating and dysuria. Musculoskeletal: Positive for arthralgias. Neurological: Negative. Psychiatric/Behavioral: Negative. Objective Physical Exam Constitutional: General: She is not in acute distress. Appearance: Normal appearance. HENT: Head: Normocephalic and atraumatic. Mouth/Throat: Mouth: Mucous membranes are moist. Cardiovascular: Rate and Rhythm: Normal rate and regular rhythm. Pulses: Normal pulses. Heart sounds: Normal heart sounds. Pulmonary: Effort: Pulmonary effort is normal. Breath sounds: Normal breath sounds. Abdominal: General: Bowel sounds are normal. There is no distension. Palpations: Abdomen is soft. Tenderness: There is no abdominal tenderness. Genitourinary: Comments: Purewick in place Musculoskeletal: Right lower leg: No edema. Left lower leg: No edema. Skin: General: Skin is warm and dry. Capillary Refill: Capillary refill takes less than 2 seconds. Neurological: General: No focal deficit present. Mental Status: She is alert and oriented to person, place, and time. Psychiatric: Mood and Affect: Mood normal. Behavior: Behavior normal. Temp: [36.3 ??C (97.4 ??F)-37 ??C (98.6 ??F)] 36.3 ??C (97.4 ??F) Heart Rate: [71-88] 88 Resp: [14-20] 20 BP: (108-136)/(59-76) 108/59 Recent labs: CBC: No results found for: WBC, RBC, HGB, HCT, PLT, MCV, MCH, MCHC, RDW, NRBC Differential: No results found for: WBC, NEUTOPHILPCT, LYMPHOPCT, MONOPCT, EOSPCT, ANEUT Coagulation: No results found for: INR, PT, PTT, CLFGN Renal: No results found for: NA, K, CL, CO2, BUN, CREATININE, GLUCOSE, CALCIUM, ICAS, MG, PHOS Liver: No results found for: AST, ALT, ALPHO, BILITOT, BILIDIR Glucose: No results found for: PGLU No results found for: HGBA1C Medications: Scheduled: acetaminophen, 1,000 mg, Oral, q6h ROWAN amLODIPine, 5 mg, Oral, Nightly atorvastatin, 20 mg, Oral, Nightly bisacodyl, 10 mg, Rectal, Once calcium carbonate, 1,000 mg, Oral, Daily celecoxib, 200 mg, Oral, Daily cholecalciferol, 1,000 Units, Oral, Daily enoxaparin, 30 mg, Subcutaneous, BID levothyroxine, 75 mcg, Oral, Daily before breakfast pantoprazole, 40 mg, Oral, Daily before breakfast polyethylene glycol, 17 g, Oral, BID senna, 8.6 mg, Oral, Nightly Continuous: As needed: melatonin, 3 mg, Nightly PRN ondansetron ODT, 4 mg, q6h PRN oxyCODONE, 2.5 mg, q6h PRN Or oxyCODONE, 5 mg, q6h PRN sodium chloride, 10 mL, q8h PRN And sodium chloride, 10 mL, PRN Assessment/Plan Principal Problem: Closed fracture of multiple pubic rami, left, initial encounter ([facility]) Active Problems: Fracture of left superior pubic ramus, closed, initial encounter ([facility]) Fracture of left inferior pubic ramus, closed, initial encounter ([facility]) Closed fracture of sacrum, initial encounter ([facility]) Acquired hypothyroidism Rheumatoid arthritis involving multiple sites ([facility]) Assessment and Plan: Jade De is a 77yo female with history of HTN, hypothyroidism, HLD, and RA admitted following fall from standing with associated sacral fractures. Acute left SPR, IPR and sacral ala fragility fractures - s/p mechanical fall - Non-op management, per ortho, WBAT LLE - Bone mineral metabolism team consulted - Vitamin D 37.3, continue cholecalciferol and calcium supplement - PT/OT recommend acute rehab with referrals placed - Continue schedule and prn bowel regimen - Continue scheduled acetaminophen, reduce oxycodone to 2.5-5mg q6h prn to prevent oversedation; initiate methocarbamol prn - Continue lovenox 30mg bid x 5 weeks (end date 10/02) Hyponatremia, POA - Unknown chronicity, Na 132 on arrival, trended down to 130 - Continue to hold tramadol, not on diuretic at baseline, appears euvolemic on exam - Repeat BMP in am Essential HTN - Normotensive, continue amlodipine Hyperlipidemia - Continue atorvastatin Hypothyroidism - Continue levothyroxine Rheumatoid arthritis - Continue Celebrex and acetaminophen Overweight - BMI 29.7, complicates aspects of care [facility] Division of Hospital Medicine Secure chat preferred or [phone] * Progress Notes - Olesya Hook, FAILURE ANALYSIS ENGINEER - 09/01/2022 12:39 PM EST Orthopaedic Surgery Progress Note 09/01/22 SUBJECTIVE: No acute events overnight. Doing well. Pain controlled. Tolerating diet. No nausea, vomiting, fevers or chills. OBJECTIVE: Vitals: 09/01/22 1204 BP: 108/59 Pulse: 88 Resp: 20 Temp: 36.3 ??C (97.4 ??F) SpO2: 95% PHYSICAL EXAMINATION No acute distress Non labored breathing Peripheral perfusion intact FOCUSED MUSCULOSKELETAL EXAM RIGHT UPPER EXTREMITY Inspection: skin intact, no deformity, soft compartments, no pain with passive stretch of digits, non-tender to palpation Range of motion: Full/painless/stable at shoulder, elbow, and wrist Motor: Fires ER/IR, Deltoid, Biceps, Triceps, Wrist flexion, Wrist extension, Finger flexion, Finger extension, Finger abduction, EPL, FPL Sensation: Sensation intact to light touch in axillary, radial, median, and ulnar nerve distributions Vascular: 2+ radial pulse, capillary refill <2 seconds, digits warm and well perfused LEFT UPPER EXTREMITY Inspection: skin intact, no deformity, soft compartments, no pain with passive stretch of digits, non-tender to palpation Range of motion: Full/painless/stable at shoulder, elbow, and wrist Motor: Fires ER/IR, Deltoid, Biceps, Triceps, Wrist flexion, Wrist extension, Finger flexion, Finger extension, Finger abduction, EPL, FPL Sensation: Sensation intact to light touch in axillary, radial, median, and ulnar nerve distributions Vascular: 2+ radial pulse, capillary refill <2 seconds, digits warm and well perfused RIGHT LOWER EXTREMITY Inspection: skin intact, no deformity, soft compartments, minimal TTP about pelvis Range of motion: Full/painless/stable at hip, knee, and ankle Motor: Fires KE, KF, TA, GSC, EHL, FHL Sensation: Sensation intact to light touch in superficial and deep peroneal, saphenous, sural, and tibial nerve distributions Vascular: 2+ dorsalis pedis and posterior tibialis pulses, capillary refill <2 seconds, digits warm and well perfused LEFT LOWER EXTREMITY Inspection: skin intact, no deformity, soft compartments, minimal TTP about pelvis Range of motion: Full/painless/stable at hip, knee, and ankle Motor: Fires HAbd, KF, TA, GSC, EHL, FHL Sensation: Sensation intact to light touch in superficial and deep peroneal, saphenous, sural, and tibial nerve distributions Vascular: 2+ dorsalis pedis and posterior tibialis pulses, capillary refill <2 seconds, digits warm and well perfused ASSESSMENT/PLAN: 77 yr old female with L SPR/IPR and L sacral ala fxs Had discussion with patient regarding operative vs. non-operative management, decision made for closed, non-operative management at this time after weighing risks vs benefits of surgery WB Status: WBAT LLE DVT PPX Pain control Nutritional optimization Bowel regimen PT/OT recommendations: ARF Follow up: 09/[address] Seun [facility]erv[facility] Olesya Hook APRN Dept. of Orthopaedic Surgery and Sports Medicine Orthopedic Reconstructiion ([facility]) Service Pager: [phone] Orthopedic Trauma ([facility]) Service Pager: [phone] * Progress Notes - Zaid Story - 09/01/2022 11:19 AM EST Physical Therapy Treatment Patient Name: Jade De Today's Date: 09/01/2022 PT Discharge Recommendations: Acute rehab Equipment Recommended: Defer to facility Subjective Pt pleasant and agreeable to work with PT Participants in Care Family/Caregiver Present: Yes Family/Caregiver: (Sister) Quartz Mounter: Not Applicable Presentation Oxygen Therapy: None (Room air) Lines and Tubes: Intravenous access Pre-Session: Lines intact, Supine, Head of bed elevated Pre-Session Comments: RN approve of session Post-Session: Sitting in chair, Lines intact, RN notified Post-Session Comments: all needs met. Pt left in chiar in bathroom with NCT entering room upon exit Precautions Left Lower Extremity Weight Bearing Status: Weight Bearing as Tolerated Objective Pain Pt reported 9/10 pain at rest and with mobility despite reporting increase with prolonged mobility. Delirium Screening Vaughan Agitation Sedation Scale (RASS): Alert and calm Confusion Assessment Method-ICU (CAM-ICU/PCAM-ICU) Feature 3: Altered Level of Consciousness: Negative Bed Mobility Bed Mobility Interventions: vc for sequencing Bed Mobility Exam: Supine to Sit Level of [place]: Stand-by assist Physical/Nonphysical Assist: Verbal Cues, Set-up required, HOB elevated Assistive Device: Bed rails Transfers Transfer Interventions: vc for AD placcement and UE placement for safety Transfer Exam: Sit to stand Level of [place]: Contact guard Physical/Nonphysical Assist: Verbal Cues, Nonverbal cues (demo/gestures) Assistive Device: Walker, rolling Transfer Exam: Stand to Sit Level of [place]: Contact guard Physical/Nonphysical Assist: Verbal Cues, Nonverbal cues (demo/gestures), Moderate cues, Set-up required Assistive Device: Walker, rolling Ambulation Device: Rolling walker Apparatus: Gait belt Assistance: Contact guard assist Distance : 75 ft +75 ft Ambulation Comments: Standing rest break between distances. Pt was cued for appropriate heel strikeon IC and AD placement to body Pt showed improved jas increased step length this date however continues to demo antalgic gait with increased trunk lean and increased PERFECTO Balance Postural Appearance Posture: Within Functional Limits Static Sitting Balance Static Sitting-Balance Support: No upper extremity support, Feet supported Static Sitting-Level of Assistance: Supervision Dynamic Sitting Balance Dynamic Sitting-Balance Support: No upper extremity support, Feet supported Dynamic Sitting-Balance: Lateral weight shifts, Anterior/Posterior weight shifts Level of Assistance: Contact guard Static Standing Balance Static Standing-Balance Support: Right upper extremity support, Left upper extremity support Static Standing-Level of Assistance: Contact guard Dynamic Standing Balance Dynamic Standing-Balance Support: Right upper extremity support, Left upper extremity support Dynamic Standing-Balance: Anterior/Posterior weight shifts, Lateral weight shifts Dynamic Standing Level of Assistance: Contact guard Participation in Functional Tasks: Contact guard Therapeutic Activity (27 minutes) Pt participated in therapeutic activity focused on progressing functional strength and safety, along with improving activity tolerance to upright position. Please refer to mobility sections for further details Assessment Pt continues to show good progress with mobility and gait mechanics however is still limited by pain provocation and requires assistance and cuing for transfers and mobility. Pt demonstrates need forhigher level of care after hospital and is not appropriate to return home due to patient unable to ambulate independently house hold distances without significant pain and rest breaks and patient lives alone. PT Recommendations Discharge Destination: Acute rehab Discharge Equipment: Defer to facility Plan Continue POC PT Goals PT GOAL DETAILS Goal Established Date Time Frame Goal Status PT Goal 1: Pt will ambulate greater than or equal to 200 feet with AAD. 08/29/22 2 weeks PT Goal 2: Pt will be independent with HEP. 08/29/22 2 weeks PT Goal 3: Pt will be educated regarding discharge reccomendations. 08/29/22 2 weeks PT Goal 4: Pt will perform all transfers with modified independent with AAD. 08/29/22 2 weeks PT Goal 5: Pt will be OOBTC greater than or equalt to one hour. 08/29/22 2 weeks Written by Zaid Story on 09/01/22 at 1:46 PM. * Care Plan - Dale Cornelius RN - 09/01/2022 7:19 AM EST Problem: Adult Inpatient Plan of Care Goal: Plan of Care Review Outcome: Ongoing, Progressing Goal: Patient-Specific Goal (Individualized) Outcome: Ongoing, Progressing Goal: Absence of Hospital-Acquired Illness or Injury Outcome: Ongoing, Progressing Goal: Optimal Comfort and Wellbeing Outcome: Ongoing, Progressing Goal: Readiness for Transition of Care Outcome: Ongoing, Progressing * Care Plan - Toma Fregoso RN - 08/31/2022 11:05 PM EST Problem: Adult Inpatient Plan of Care Goal: Plan of Care Review Outcome: Ongoing, Progressing Flowsheets (Taken 08/31/20222301) Progress: improving Outcome Summary: -- Note: Pt. remains EMV 15. VSS. Tolerating PO diet. BM earlier today per pt. report. Pt. reports pain with movement of legs/walking but states pain improved with ordered medications. Pt. participatingin care. Repositioning in bed independently. Awaiting rehab placement. Goal: Patient-Specific Goal (Individualized) Outcome: Ongoing, Progressing Flowsheets (Taken 08/31/20221999) Patient-Specific Goals (Include Timeframe): Pt. will remain safe and free from falls and injury this shift. Individualized Care Needs: safety Anxieties, Fears or Concerns: none expressed Goal: Absence of Hospital-Acquired Illness or Injury Outcome: Ongoing, Progressing Goal: Optimal Comfort and Wellbeing Outcome: Ongoing, Progressing Goal: Readiness for Transition of Care Outcome: Ongoing, Progressing Problem: Pain Acute Goal: Acceptable Pain Control and Functional Ability Outcome: Ongoing, Progressing Problem: Self-Care Deficit Goal: Improved Ability to Complete Activities of Daily Living Outcome: Ongoing, Progressing Problem: Mobility Impairment Goal: Optimal Mobility Outcome: Ongoing, Progressing Problem: Fall Injury Risk Goal: Absence of Fall and Fall-Related Injury Outcome: Ongoing, Progressing * Progress Notes - Bradly Campoverde - 08/31/2022 11:58 AM EST Physical Therapy Treatment Patient Name: Jade De Today's Date: 08/31/2022 PT Discharge Recommendations: Acute rehab Equipment Recommended: Defer to facility Subjective Patient motivated to work with therapist, reports she already walked once today. Participants in Care Family/Caregiver Present: Yes Family/Caregiver: Adult Daughter Presentation Oxygen Therapy: None (Room air) Lines and Tubes: Intravenous access Pre-Session: Sitting in chair, Lines intact Pre-Session Comments: RN approve of session Post-Session: Sitting in chair, Lines intact, RN notified Post-Session Comments: all needs met Precautions Left Lower Extremity Weight Bearing Status: Weight Bearing as Tolerated Objective Pain Patient with pain when weight bearing, did not rate pain. Positioned for comfort with no pain at rest. Delirium Screening Vaughan Agitation Sedation Scale (RASS): Alert and calm Confusion Assessment Method-ICU (CAM-ICU/PCAM-ICU) Feature 3: Altered Level of Consciousness: Negative Transfers Transfer Exam: Sit to stand Level of [place]: Contact guard Physical/Nonphysical Assist: Verbal Cues Assistive Device: Walker, rolling Transfer Exam: Stand to Sit Level of [place]: Contact guard Physical/Nonphysical Assist: Verbal Cues Assistive Device: Walker, rolling Therapeutic Activity (16 minutes) Therapist educated patient on safety/sequencing for transfers as well as appropriate fit for RW. Discussed plan of care/goals with patient/family as well as importance of continued mobility. Gait Training Device: Rolling walker Assistance: Contact guard assist, Moderate verbal cues Distance: 75'x2 Gait Analysis: Pt with decreased step length bilaterally, slow gait speed, and forward lean at walker. Gait Training Interventions: Pt with verbal and tactile cues for walker placement/safety as well ascues for improving gait pattern by increasing step length and taking symmetrical steps. Therapeutic Exercise (8 minutes) Patient performed bilateral lower extremity seated exercises while seated in bedside chair to improve muscular endurance, strength, and overall activity tolerance. Patient performed long-arc quads, marching, and ankle DF/PF x15-20 reps each. Therapist provided verbal cues for appropriate technique,pacing, and to facilitate rest breaks. Mobility CARE Tool Performance MOBILITY CARE ITEMS CARE SCORE Roll Left and Right 3 Sit to Lying 3 Lying to Sitting on Side of Bed 3 Sit to Stand 3 Chair/[id number] Transfer 88 Toilet Transfer 88 Car Transfer 10 Walk 10 Feet 3 Walk 50 Feet with Two Turns 88 Walk 150 Feet 88 Walking 10 Feet of Uneven Surfaces 10 1 Step (Curb) 88 4 Steps 88 12 Steps 88 Picking up Object 88 Wheel 50 Feet with Two Turns 88 Wheel 150 Feet 88 CARE Tool Performance Score Mckeon Score Assist Level Description 6 Independent Patient completes the activity by him/herself with no assistance from a helper. 5 Set-up or Clean-up Assistance [place] sets up or cleans up; patient completes activity. [place] assists only prior to or following the activity. 4 Supervision or touching assistance [place] provides verbal cues and/or touching/steadying and/or contact guard assistance as patient completes activity. Assistance may be provided throughout the activity or intermittently. 3 Partial/Moderate Assistance [place] does LESS THAN HALF the effort. [place] lifts, holds or supports trunk or limbs, but provides less than half the effort. 2 Substantial/Maximal Assistance [place] does MORE THAN HALF the effort. [place] lifts or holds trunkor limbs and provides more than half the effort. 1 Dependent [place] does ALL of the effort. Patient does none of the effort to complete the activity. Or, the assistance of 2 or more helpers is required for the patient to complete the activity. Activity Not Attempted Values 7 Patient refused. 9 Not applicable - Not attempted and the patient did not perform this activity prior to the currentillness, exacerbation, or injury. 10 Not attempted due to environmental limitations (e.g., lack of equipment, weather constraints) 88 Not attempted due to medical condition or safety concerns Assessment Patient with improvements in mobility this date with increased gait distance and decreased level ofassist for transfers. Patient continues to have difficulty with normalizing gait pattern and walking further distances. Vital signs remained WNL with no adverse effects to treatment. PT Recommendations Discharge Destination: Acute rehab Discharge Equipment: Defer to facility Plan Continue with plan of care and progress mobility as tolerated. PT Goals PT GOAL DETAILS Goal Established Date Time Frame Goal Status PT Goal 1: Pt will ambulate greater than or equal to 200 feet with AAD. 08/29/22 2 weeks PT Goal 2: Pt will be independent with HEP. 08/29/22 2 weeks PT Goal 3: Pt will be educated regarding discharge reccomendations. 08/29/22 2 weeks PT Goal 4: Pt will perform all transfers with modified independent with AAD. 08/29/22 2 weeks PT Goal 5: Pt will be OOBTC greater than or equalt to one hour. 08/29/22 2 weeks Written by Bradly Campoverde on 08/31/22 at 12:50 PM. * Progress Notes - Genoveva Rowell, FAILURE ANALYSIS ENGINEER - 08/31/2022 11:31 AM EST Subjective Patient is sitting up in bed, alert and very pleasant this morning. She states she slept fine overnight and has been eating well. No complaints of pain unless when up and mobilizing, will continue tylenol and tramadol and can change to oxycodone if needed were discussed. Continues to pas gas but has not had a BM since prior to admission. She believes getting out of bed and working with PT will help her bowels move, if not she agrees to a suppository this evening. Review of Systems Constitutional: Positive for activity change. HENT: Negative for congestion and sore throat. Respiratory: Negative for chest tightness and shortness of breath. Cardiovascular: Negative for chest pain and palpitations. Gastrointestinal: Positive for constipation. Negative for abdominal distention, abdominal pain, diarrhea and nausea. Genitourinary: Negative for difficulty urinating. Musculoskeletal: Positive for arthralgias. Neurological: Negative for dizziness and weakness. Objective Physical Exam Constitutional: General: She is not in acute distress. Appearance: Normal appearance. She is normal weight. HENT: Head: Normocephalic and atraumatic. Mouth/Throat: Mouth: Mucous membranes are moist. Pharynx: Oropharynx is clear. Eyes: Pupils: Pupils are equal, round, and reactive to light. Cardiovascular: Rate and Rhythm: Normal rate and regular rhythm. Pulses: Normal pulses. Pulmonary: Effort: Pulmonary effort is normal. No respiratory distress. Breath sounds: Normal breath sounds. Abdominal: General: Bowel sounds are normal. There is no distension. Palpations: Abdomen is soft. Tenderness: There is no abdominal tenderness. Genitourinary: Comments: Purewick catheter in place with yellow urine in canister Musculoskeletal: General: No swelling. Normal range of motion. Cervical back: Neck supple. Right lower leg: No edema. Left lower leg: No edema. Skin: General: Skin is warm and dry. Neurological: General: No focal deficit present. Mental Status: She is alert and oriented to person, place, and time. Psychiatric: Mood and Affect: Mood normal. Behavior: Behavior normal. Last Recorded Vitals Blood pressure 129/65, pulse 77, temperature 36.7 ??C (98 ??F), temperature source Oral, resp. rate14, height 1.676 m (5' 6 ), weight 83.6 kg (184 lb 4.9 oz), SpO2 95 %. Assessment/Plan Principal Problem: Closed fracture of multiple pubic rami, left, initial encounter ([facility] Active Problems: Fracture of left superior pubic ramus, closed, initial encounter ([facility]) Fracture of left inferior pubic ramus, closed, initial encounter ([facility]) Closed fracture of sacrum, initial encounter ([facility]) Acquired hypothyroidism Rheumatoid arthritis involving multiple sites ([facility]) Assessment/Plan Ms. De is a 77 yo female with a PMH of HTN, HLD, hypothyroidism and RA who presented with leftSPR, IPR and sacral ala fractures s/p mechanical fall. Hyponatremia - Na 132 on arrival, has trended down to 130 and stable at 130 today - unknown baseline but patient does not have hx of being told it was low in the past. -Appears euvolemic and asymptomatic - 500ml LR bolus 08/30 - can f/u as outpatient Left SPR, IPR and sacral ala fractures - Fragility fracture s/p mechanical fall - Per ortho, non-op for now, per discussion with their team today patient PMFs cleared and she may ambulate as tolerated. - Bone and mineral metabolism team consulted - WBAT LLE per ortho - Pain control: Tylenol scheduled, changed tramadol to oxycodone per patient request today for improved pain control - Bowel regimen: senna, Miralax, suppository today - DVT PPX: Lovenox 30mg BID - PT/OT recommend acute rehab Constipation -increased miralax to BID, continue on senna and giving suppository today -will continue to monitor Essential HTN - continue home amlodipine 5mg daily, BP controlled HLD - continue home atorvastatin Hypothyroidism - continue home levothyroxine 75mcg Rheumatoid arthritis - Continue home Celebrex and Tylenol Dispo: acute rehab recs, wishes to be referred to and [facility]. Discussed with advanced manufacturing consultant weekend CM to make referrals on 08/30. Awaiting placement. * Care Plan - Toma Fregoso RN - 08/30/2022 10:55 PM EST Problem: Adult Inpatient Plan of Care Goal: Plan of Care Review Outcome: Ongoing, Progressing Flowsheets (Taken 08/30/2022 2252) Progress: improving Outcome Summary: Pt. EMV 15. VSS. Tolerating PO diet. Reports pain as controlled with current regimen. Participating in care. Repositioning in bed independently. Eager to work with PT/OT again. Awaiting rehab. Goal: Patient-Specific Goal (Individualized) Outcome: Ongoing, Progressing Flowsheets (Taken 08/30/20222014) Patient-Specific Goals (Include Timeframe): Patient will remain safe and free from falls and injurythis shift. Individualized Care Needs: safety Anxieties, Fears or Concerns: none expressed Goal: Absence of Hospital-Acquired Illness or Injury Outcome: Ongoing, Progressing Goal: Optimal Comfort and Wellbeing Outcome: Ongoing, Progressing Goal: Readiness for Transition of Care Outcome: Ongoing, Progressing Problem: Pain Acute Goal: Acceptable Pain Control and Functional Ability Outcome: Ongoing, Progressing Problem: Fall Injury Risk Goal: Absence of Fall and Fall-Related Injury Outcome: Ongoing, Progressing * Care Plan - Lavonne Aragon RN - 08/30/2022 2:30 PM EST Problem: Mobility Impairment Goal: Optimal Mobility Outcome: Ongoing, Progressing Intervention: Optimize Mobility Flowsheets (Taken 08/30/2022 1200 by Johnnie Chester) Activity Management: activity adjusted per tolerance Problem: Fall Injury Risk Goal: Absence of Fall and Fall-Related Injury Outcome: Ongoing, Progressing Intervention: Identify and Manage Contributors Flowsheets (Taken 08/30/2022 1430) Medication Review/Management: medications reviewed Self-Care Promotion: independence encouraged * Progress Notes - Genoveva Rowell APRN - 08/30/2022 10:30 AM EST Subjective Slept pretty well last night. Says she does feel dry mouth. Hoping to get up to go to the bathroom.No BM yet but is passing gas. Says her pain is controlled. Eating about half her meals. Review of Systems Constitutional: Positive for appetite change. Negative for fever. Respiratory: Negative for cough, chest tightness and shortness of breath. Cardiovascular: Negative for chest pain and leg swelling. Gastrointestinal: Negative for abdominal pain, constipation, diarrhea and nausea. Genitourinary: Negative for difficulty urinating and flank pain. Musculoskeletal: Positive for arthralgias. Neurological: Negative for dizziness, weakness and light-headedness. Psychiatric/Behavioral: Negative for behavioral problems. Objective Physical Exam Constitutional: General: She is not in acute distress. Appearance: Normal appearance. HENT: Head: Normocephalic and atraumatic. Eyes: General: No scleral icterus. Pupils: Pupils are equal, round, and reactive to light. Cardiovascular: Rate and Rhythm: Normal rate and regular rhythm. Pulses: Normal pulses. Heart sounds: Normal heart sounds. No murmur heard. Pulmonary: Effort: Pulmonary effort is normal. No respiratory distress. Abdominal: General: Abdomen is flat. Bowel sounds are normal. Genitourinary: Comments: Purewick canister at bedside with yellow urine Musculoskeletal: Cervical back: Neck supple. No tenderness. Skin: General: Skin is warm and dry. Neurological: General: No focal deficit present. Mental Status: She is alert and oriented to person, place, and time. Mental status is at baseline. Psychiatric: Mood and Affect: Mood normal. Behavior: Behavior normal. Judgment: Judgment normal. Last Recorded Vitals Blood pressure 123/72, pulse 75, temperature 36.7 ??C (98 ??F), temperature source Oral, resp. rate18, height 1.676 m (5' 6 ), weight 83.6 kg (184 lb 4.9 oz), SpO2 93 %. Assessment/Plan Principal Problem: Closed fracture of multiple pubic rami, left, initial encounter ([facility]) Active Problems: Fracture of left superior pubic ramus, closed, initial encounter ([facility]) Fracture of left inferior pubic ramus, closed, initial encounter ([facility]) Closed fracture of sacrum, initial encounter ([facility]) Acquired hypothyroidism Rheumatoid arthritis involving multiple sites ([facility]) Assessment/Plan Ms. De is a 77 yo female with a PMH of HTN, HLD, hypothyroidism and RA who presented with leftSPR, IPR and sacral ala fractures s/p mechanical fall. Hyponatremia - Na 132 on arrival, has trended down to 130 today - unknown baseline but patient does not have hx of being told it was low in the past -suspect some volume depletion, will give 500ml of LR today -repeat AM BMP Left SPR, IPR and sacral ala fractures - Fragility fracture s/p mechanical fall - Per ortho, non-op for now, awaiting read on PMFs - Bone and mineral metabolism team consulted - WBAT LLE per ortho - Pain control: Tylenol scheduled, tramadol prn - Bowel regimen: senna, Miralax - DVT PPX: Lovenox 30mg BID - PT/OT recommend acute rehab Essential HTN - continue home amlodipine 5mg daily, BP reasonably controlled HLD - continue home atorvastatin Hypothyroidism - continue home levothyroxine 75mcg Rheumatoid arthritis - Continue home Celebrex and Tylenol Dispo: acute rehab recs, wishes to be referred to and [facility]. Discussed with advanced manufacturing consultant weekend CM and will send referrals to these facilities. * Progress Notes - Genoveva Rowell APRN - 08/29/2022 11:42 AM EST Subjective No acute events overnight. She states she was able to ambulate a few feet with PT this am, unable to put much weight on her left leg due to sharp hip pain, rated 10/10 when ambulating but 0/10 while lying in bed. She states she took tramadol this am 2 hours prior to ambulating. She is awaiting her PMF prior to ambulating again. Review of Systems Constitutional: Positive for appetite change. Negative for fever. Respiratory: Negative for cough, chest tightness and shortness of breath. Cardiovascular: Negative for chest pain and leg swelling. Gastrointestinal: Negative for abdominal pain, constipation, diarrhea and nausea. Genitourinary: Negative for difficulty urinating and flank pain. Musculoskeletal: Positive for arthralgias. Neurological: Negative for dizziness, weakness and light-headedness. Psychiatric/Behavioral: Negative for behavioral problems. Objective Physical Exam Constitutional: General: She is not in acute distress. Appearance: Normal appearance. HENT: Head: Normocephalic and atraumatic. Eyes: General: No scleral icterus. Pupils: Pupils are equal, round, and reactive to light. Cardiovascular: Rate and Rhythm: Normal rate and regular rhythm. Pulses: Normal pulses. Heart sounds: Normal heart sounds. No murmur heard. Pulmonary: Effort: Pulmonary effort is normal. No respiratory distress. Abdominal: General: Abdomen is flat. Bowel sounds are normal. Genitourinary: Comments: Purewick canister at bedside with yellow urine Musculoskeletal: Cervical back: Neck supple. No tenderness. Skin: General: Skin is warm and dry. Neurological: General: No focal deficit present. Mental Status: She is alert and oriented to person, place, and time. Mental status is at baseline. Psychiatric: Mood and Affect: Mood normal. Behavior: Behavior normal. Judgment: Judgment normal. Last Recorded Vitals Blood pressure 92/55, pulse 88, temperature 36.4 ??C (97.6 ??F), temperature source Oral, resp. rate 14, height 1.676 m (5' 6 ), weight 83.6 kg (184 lb 4.9 oz), SpO2 93 %. Assessment/Plan Principal Problem: Closed fracture of multiple pubic rami, left, initial encounter ([facility]) Active Problems: Fracture of left superior pubic ramus, closed, initial encounter ([facility]) Fracture of left inferior pubic ramus, closed, initial encounter ([facility]) Closed fracture of sacrum, initial encounter ([facility]) Acquired hypothyroidism Rheumatoid arthritis involving multiple sites ([facility]) Assessment/Plan Ms. De is a 77 yo female with a PMH of HTN, HLD, hypothyroidism and RA who presented with leftSPR, IPR and sacral ala fractures s/p mechanical fall. Left SPR, IPR and sacral ala fractures - Fragility fracture s/p mechanical fall - Per ortho, non-op for now, awaiting read on PMFs - Bone and mineral metabolism team consulted - WBAT LLE per ortho - Pain control: Tylenol scheduled, tramadol prn as she is opiate naive; can escalate if needed and encouraged patient to notify is remains uncontrolled - Bowel regimen: senna, Miralax - DVT PPX: Lovenox 30mg BID - PT/OT recommend acute rehab Essential HTN - continue home amlodipine 5mg daily, BP reasonably controlled HLD - continue home atorvastatin Hypothyroidism - continue home levothyroxine 75mcg Leukocytosis- resolved - 11.8 on admission. Mild, likely reactive in setting of fracture - 7.1 today Hypokalemia- resolved - 3.6 on admission, replaced, 4.4 today - continue to monitor Hyponatremia - Na 132 on arrival, 131 today, unknown baseline PLAN - Encourage PO intake today - Repeat BMP tomorrow morning Rheumatoid arthritis - Continue home Celebrex and Tylenol PPX - Lovenox 30mg BID Dispo: acute rehab recs, wishes to be referred to and [facility] Cosigned by Iron Roberts MD at 08/29/2022 6:00 PM EST Associated attestation - Iron Roberts MD - 08/29/2022 6:00 PM EST I've seen and examined the patient. I discussed the case with the SURES[facility] and agree with the assessmentand plan of care detailed below. She ambulated 25 feet with PT and we're waiting on the post-mob films. Hoping for IPR at [facility] * Progress Notes - Ludivina Nur - 08/29/2022 11:22 AM EST Physical Therapy Evaluation Patient Name: Jade De Today's Date: 08/29/2022 PT Discharge Recommendations: Acute rehab Equipment Recommended: Defer to facility History Jade De is 77 y.o. female admitted 08/28/2022 for work-up of Closed fracture of multiple pubic rami, left, initial encounter ([facility] Problem List Active Hospital Problems Diagnosis Date Noted Fracture of left superior pubic ramus, closed, initial encounter ([facility]) 08/28/2022 Fracture of left inferior pubic ramus, closed, initial encounter ([facility]) 08/28/2022 Closed fracture of sacrum, initial encounter ([facility]) 08/28/2022 Acquired hypothyroidism 08/28/2022 Rheumatoid arthritis involving multiple sites ([facility]) 08/28/2022 Closed fracture of multiple pubic rami, left, initial encounter ([facility]) 08/28/2022 Procedures Past Medical History Patient has a past medical history of Arthritis, Disease of thyroid gland, HLD (hyperlipidemia), and Hypertension. Past Surgical History Patient has no past surgical history on file. Precautions Left Lower Extremity Weight Bearing Status: Weight Bearing as Tolerated Subjective Pt states she prefers to discharge to rehab facility rather than home. Participants in Care Family/Caregiver Present: Yes Family/Caregiver: Adult Daughter Presentation Oxygen Therapy: None (Room air) Lines and Tubes: Intravenous access, Telemetry Pre-Session: Supine Post-Session: Supine Home Living/Set-up Lives With: Alone Home Type: House Home Adaptive Equipment: None Home Layout: Able to live on one level with bedroom/bathroom Home Living Comments: Pt lives alone, no steps to enter, family to assist upon discharge from rehabfacility. Prior Level of Function Receives Help From: No assist required prior to admission Level of Mobility: Ambulatory- community Mobility [place]: Independent gait without device History of Falls: No ADL Performance: Independent Patient/Family Goals Pt states she prefers to discharge to acute rehab prior to discharge home. Objective Pain Pain Score (0-10): Pt with no complaints of pain at this time. Location: left leg Intervention: ambulation/increased activity, position adjusted, prescribed exercises encouraged, and pillow support provided Response: comfortable at end of session Delirium Screening Vaughan Agitation Sedation Scale (RASS): Alert and calm Confusion Assessment Method-ICU (CAM-ICU/PCAM-ICU) Feature 3: Altered Level of Consciousness: Negative Cognition Overall Cognitive Status: Within Functional Limits Arousal/Alertness: Appropriate responses to stimuli Mood/Behavior: Alert Orientation Level: Oriented X4 Single Step Commands: Consistently Method of Communication: Verbal Vision - Basic Assessment Current Vision: Intact Right Upper Extremity Examination RUE Assessment: Within Functional Limits Manual Muscle Testing - RUE: Within functional limits Sensation Light Touch: Right Upper Extremity: Intact Left Upper Extremity Examination LUE ROM Assessment LUE Assessment: Within Functional Limits Manual Muscle Testing - LUE Manual Muscle Testing - LUE: Within functional limits Sensation Light Touch: Left Upper Extremity: Intact Right Lower Extremity Examination RLE ROM Assessment RLE Assessment: Within Functional Limits Manual Muscle Testing - RLE Manual Muscle Testing - RLE: Within functional limits Sensation Light Touch: Right Lower Extremity: Intact Left Lower Extremity Examination LLE Assessment: (AROM decreased secondary to pain) Manual Muscle Testing: (Grossly 2/5) Sensation Light Touch: Left Lower Extremity: Intact Bed Mobility Bed Mobility Exam: Rolling/Turning Level of [place]: Contact guard Physical/Nonphysical Assist: Verbal Cues Assistive Device: Bed rails Bed Mobility Exam: Scooting/Bridging Level of [place]: Contact guard Physical/Nonphysical Assist: Verbal Cues Assistive Device: Bed rails Bed Mobility Exam: Supine to Sit Level of [place]: Contact guard Physical/Nonphysical Assist: Verbal Cues Assistive Device: Bed rails Bed Mobility Exam: Sit to Supine Level of [place]: Minimum assist (75% patient's effort) Physical/Nonphysical Assist: Verbal Cues Assistive Device: Bed rails Transfers Transfer Exam: Sit to stand Level of [place]: Contact guard Physical/Nonphysical Assist: Verbal Cues Assistive Device: Walker, rolling Transfer Exam: Stand to Sit Level of [place]: Contact guard Physical/Nonphysical Assist: Verbal Cues Assistive Device: Walker, rolling Therapeutic Activity ( minutes) Patient was instructed on bed mobility and was given instruction on and provided with verbal/tactile cues for alternative movement strategy to compensate for extremity fracture. Patient participated in functional mobility and given instruction on weight bearing restrictions and assistive device. Patient provided with verbal/tactile cues and assistance for mobility training to compensate for current weight- bearing restrictions. Gait Training ( minutes) Device: Rolling walker Assistance: Contact guard assist, Moderate verbal cues Distance: 25 feet with frequent standing rest breaks Gait Analysis: Pt with decreased step length with gait. Gait Training Interventions: Pt with verbal and tactile cues for walker placement and safety. Therapeutic Exercise (10 minutes) Pt given written HEP: AP, QS, GS to be performed 10x/hour each. Pt demonstrates understanding of HEP with verbal and tactile cues. Mobility CARE Tool Performance MOBILITY CARE ITEMS CARE SCORE Roll Left and Right 3 Sit to Lying 3 Lying to Sitting on Side of Bed 3 Sit to Stand 3 Chair/[id number] Transfer 88 Toilet Transfer 88 Car Transfer 10 Walk 10 Feet 3 Walk 50 Feet with Two Turns 88 Walk 150 Feet 88 Walking 10 Feet of Uneven Surfaces 10 1 Step (Curb) 88 4 Steps 88 12 Steps 88 Picking up Object 88 Wheel 50 Feet with Two Turns 88 Wheel 150 Feet 88 CARE Tool Performance Score Mkceon Score Assist Level Description 6 Independent Patient completes the activity by him/herself with no assistance from a helper. 5 Set-up or Clean-up Assistance [place] sets up or cleans up; patient completes activity. [place] assists only prior to or following the activity. 4 Supervision or touching assistance [place] provides verbal cues and/or touching/steadying and/or contact guard assistance as patient completes activity. Assistance may be provided throughout the activity or intermittently. 3 Partial/Moderate Assistance [place] does LESS THAN HALF the effort. [place] lifts, holds or supports trunk or limbs, but provides less than half the effort. 2 Substantial/Maximal Assistance [place] does MORE THAN HALF the effort. [place] lifts or holds trunkor limbs and provides more than half the effort. 1 Dependent [place] does ALL of the effort. Patient does none of the effort to complete the activity. Or, the assistance of 2 or more helpers is required for the patient to complete the activity. Activity Not Attempted Values 7 Patient refused. 9 Not applicable - Not attempted and the patient did not perform this activity prior to the currentillness, exacerbation, or injury. 10 Not attempted due to environmental limitations (e.g., lack of equipment, weather constraints) 88 Not attempted due to medical condition or safety concerns Standardized Assessments [facility] 6-Clicks Mobility Assessment Difficulty patient has turning over in bed (including adjusting bedclothes, sheets, and blankets)?:A little Difficulty patient has sitting down on and standing up from a chair with arms (wheelchair, bedside commode, etc.)?: A little Difficulty patient has moving from lying on back to sitting on the side of the bed?: A little How much help does the patient need moving to and from a bed to a chair (including a wheelchair)?: A little How much help does the patient need to walk in hospital room?: A little How much help does the patient need climbing 3-5 steps with a railing?: Unable [facility] 6-Clicks Mobility Assessment Total : 16 Assessment Pt tolerated PT evaluation this date. Pt with decreased functional mobility and tolerance to upright this date. Pt most appropriate for acute rehab at hits time. Impairments: Impaired gait dynamics/performance Participation Restrictions: Self-care, Home management, Community leisure Diagnosis: Pt with decreased functional mobility. Rehab Potential: Good, to achieve stated therapy goals Eval Complexity Clinical Presentation: Evolving clinical presentation with changing characteristics Clinical Decision Making: Moderate complexity PT Recommendations Discharge Destination: Acute rehab Discharge Equipment: Defer to facility Demonstrates Need for Referral to Another Service: Social work Plan Planned PT Interventions Balance training, Bed mobility training, Gait training, Transfer training, Strengthening, Functional Mobility PT Frequency 4 - 6 times per week PT Duration 2 weeks Goals PT GOAL DETAILS Time Frame PT Goal 1: Pt will ambulate greater than or equal to 200 feet with AAD. 2 weeks PT Goal 2: Pt will be independent with HEP. 2 weeks PT Goal 3: Pt will be educated regarding discharge reccomendations. 2 weeks PT Goal 4: Pt will perform all transfers with modified independent with AAD. 2 weeks PT Goal 5: Pt will be OOBTC greater than or equalt to one hour. 2 weeks Written by Ludivina Nur on 08/29/22 at 11:22 AM. * Progress Notes - Angelito Britton - 08/29/2022 10:38 AM EST Occupational Therapy Evaluation Patient Name: Jade De Today's Date: 08/29/2022 OT Discharge Recommendations: Acute rehab History Jade De is 77 y.o. female admitted 08/28/2022 for work-up of Closed fracture of multiple pubic rami, left, initial encounter ([facility]). Problem List Active Hospital Problems Diagnosis Date Noted Fracture of left superior pubic ramus, closed, initial encounter ([facility]) 08/28/2022 Fracture of left inferior pubic ramus, closed, initial encounter ([facility]) 08/28/2022 Closed fracture of sacrum, initial encounter ([facility]) 08/28/2022 Acquired hypothyroidism 08/28/2022 Rheumatoid arthritis involving multiple sites ([facility]) 08/28/2022 Closed fracture of multiple pubic rami, left, initial encounter ([facility]) 08/28/2022 Procedures Past Medical History Patient has a past medical history of Arthritis, Disease of thyroid gland, HLD (hyperlipidemia), and Hypertension. Past Surgical History Patient has no past surgical history on file. Precautions Left Lower Extremity Weight Bearing Status: Weight Bearing as Tolerated Subjective 77 y.o. female patient with LSPR, L IPR, L sacral ala fractures Participants in Care Family/Caregiver Present: Yes Family/Caregiver: Adult Daughter Presentation Oxygen Therapy: None (Room air) Lines and Tubes: Intravenous access, Telemetry Pre-Session: Supine Post-Session: Supine Home Living/Set-up Lives With: Alone Home Type: House Home Adaptive Equipment: None Home Layout: Able to live on one level with bedroom/bathroom Home Living Comments: Pt lives alone, no steps to enter, family to assist upon discharge from rehabfacility. Prior Level of Function Receives Help From: No assist required prior to admission Level of Mobility: Ambulatory- community Mobility [place]: Independent gait without device History of Falls: No ADL Performance: Independent Patient/Family Goals Statement Objective Pain Denies pain Delirium Screening Vaughan Agitation Sedation Scale (RASS): Alert and calm Confusion Assessment Method-ICU (CAM-ICU/PCAM-ICU) Feature 3: Altered Level of Consciousness: Negative Cognition Overall Cognitive Status: Within Functional Limits Arousal/Alertness: Appropriate responses to stimuli Mood/Behavior: Alert Orientation Level: Oriented X4 Single Step Commands: Consistently Method of Communication: Verbal Vision - Basic Assessment Current Vision: Intact Right Upper Extremity Examination RUE ROM Assessment RUE Assessment: Within Functional Limits Manual Muscle Testing - RUE: Within functional limits Sensation Light Touch: Right Upper Extremity: Intact Left Upper Extremity Examination LUE ROM Assessment LUE Assessment: Within Functional Limits Manual Muscle Testing - LUE: Within functional limits Sensation Light Touch: Left Upper Extremity: Intact Right Lower Extremity Examination RLE ROM Assessment RLE Assessment: Within Functional Limits Manual Muscle Testing - RLE: Within functional limits Sensation Light Touch: Right Lower Extremity: Intact Left Lower Extremity Examination LLE ROM Assessment LLE Assessment: (AROM decreased secondary to pain) Manual Muscle Testing: (Grossly 2/5) Sensation Light Touch: Left Lower Extremity: Intact Bed Mobility Bed Mobility Exam: Rolling/Turning Level of [place]: Contact guard Physical/Nonphysical Assist: Verbal Cues Bed Mobility Exam: Scooting/Bridging Level of [place]: Contact guard Physical/Nonphysical Assist: Verbal Cues Bed Mobility Exam: Supine to Sit Level of [place]: Contact guard Physical/Nonphysical Assist: Verbal Cues Bed Mobility Exam: Sit to Supine Level of [place]: Minimum assist (75% patient's effort) Physical/Nonphysical Assist: Verbal Cues Transfers Transfer Exam: Sit to stand Level of [place]: Contact guard Physical/Nonphysical Assist: Verbal Cues Assistive Device: Walker, rolling Transfer Exam: Stand to Sit Level of [place]: Contact guard Physical/Nonphysical Assist: Verbal Cues Assistive Device: Walker, rolling Self-Care Interventions Lower Extremity Dressing Sock Level of Assistance: Close supervision, Setup LE Dressing Where Assessed: Edge of bed LE Dressing Interventions: Requiring CGA for safety with task previously independent with Standardized Assessments Kristen Index Feeding: Independent Bathing: Dependent Grooming: Independent face/hair/teeth/shaving (implements provided) Dressing: Needs help but can do about half unaided Bowels: Continent Bladder: Continent Toilet Use: Needs some help but can do some things alone Transfers (Bed to Chair and Back): Minor help (verbal or physical) Mobility (on Level Surfaces): Immobile or < 50 yards Stairs: Unable Total Score: 55 Standardized Assessments Kristen Index Feeding: Independent Bathing: Dependent Grooming: Independent face/hair/teeth/shaving (implements provided) Dressing: Needs help but can do about half unaided Bowels: Continent Bladder: Continent Toilet Use: Needs some help but can do some things alone Transfers (Bed to Chair and Back): Minor help (verbal or physical) Mobility (on Level Surfaces): Immobile or < 50 yards Stairs: Unable Total Score: 55 Assessment Pt seen for initial evaluation only. Demonstrating decreased functional mobility and ADL impairments secondary to injury. Requiring increased physical assist to complete tasks previously performed independently. Would continue to benefit from skilled OT services to increase independence. Will establish plan of care. OT Findings: Impaired ADL performance, Impaired functional mobility, Impaired IADL performance, Decreased endurance/ventilation/gas exchange Rehab Potential: Good, to achieve stated therapy goals Eval Complexity Occupational Profile: Expanded review of medical/therapy records and additional review of physical,cognitive, or psychosocial history Performance Deficits: Activities of daily living (ADLs), Routines, Roles, Cultural Clinical Decision Making: Moderate Overall Eval complexity: Moderate OT Recommendations Discharge Destination: Acute rehab Discharge Equipment: Plan Planned OT Interventions ADL retraining, IADL retraining, Functional mobility, Balance training, Transfer training, Caregiver education OT Frequency 2 - 5 times per week OT Duration 2 weeks Goals OT GOAL DETAILS Time Frame OT Goal 1: Pt will demonstrate independence with HEP by discharge. 2 weeks OT Goal 2: Pt will demonstrate min assist with toilet transfer x1 2 weeks OT Goal 3: Pt will demonstrate grooming in standing at sink with SBA x1 2 weeks Written by Angelito Britton on 08/29/22 at 2:24 PM. * Discharge Instr - Activity - Mary Ibarra RN - 08/29/2022 9:08 AM EST Weight bear as tolerated to left leg. * Progress Notes - Mick Horn MD - 08/29/2022 6:46 AM EST ORTHOPAEDIC SURGERY PROGRESS NOTE SUBJECTIVE No acute events overnight. Doing well. Pain controlled. Tolerating diet. No nausea, vomiting, fevers or chills. OBJECTIVE Visit Vitals BP (!) 141/63 Pulse 93 Temp 36.6 ??C (97.9 ??F) (Oral) Ht 1.676 m (5' 6 ) Wt 83.6 kg (184 lb 4.9 oz) SpO2 100% BMI 29.75 kg/m?? PHYSICAL EXAMINATION No acute distress Non labored breathing Peripheral perfusion intact FOCUSED MUSCULOSKELETAL EXAM RIGHT UPPER EXTREMITY Inspection: skin intact, no deformity, soft compartments, no pain with passive stretch of digits, non-tender to palpation Range of motion: Full/painless/stable at shoulder, elbow, and wrist Motor: Fires ER/IR, Deltoid, Biceps, Triceps, Wrist flexion, Wrist extension, Finger flexion, Finger extension, Finger abduction, EPL, FPL Sensation: Sensation intact to light touch in axillary, radial, median, and ulnar nerve distributions Vascular: 2+ radial pulse, capillary refill <2 seconds, digits warm and well perfused LEFT UPPER EXTREMITY Inspection: skin intact, no deformity, soft compartments, no pain with passive stretch of digits, non-tender to palpation Range of motion: Full/painless/stable at shoulder, elbow, and wrist Motor: Fires ER/IR, Deltoid, Biceps, Triceps, Wrist flexion, Wrist extension, Finger flexion, Finger extension, Finger abduction, EPL, FPL Sensation: Sensation intact to light touch in axillary, radial, median, and ulnar nerve distributions Vascular: 2+ radial pulse, capillary refill <2 seconds, digits warm and well perfused RIGHT LOWER EXTREMITY Inspection: skin intact, no deformity, soft compartments, minimal TTP about pelvis Range of motion: Full/painless/stable at hip, knee, and ankle Motor: Fires KE, KF, TA, GSC, EHL, FHL Sensation: Sensation intact to light touch in superficial and deep peroneal, saphenous, sural, and tibial nerve distributions Vascular: 2+ dorsalis pedis and posterior tibialis pulses, capillary refill <2 seconds, digits warm and well perfused LEFT LOWER EXTREMITY Inspection: skin intact, no deformity, soft compartments, minimal TTP about pelvis Range of motion: Full/painless/stable at hip, knee, and ankle Motor: Fires HAbd, KF, TA, GSC, EHL, FHL Sensation: Sensation intact to light touch in superficial and deep peroneal, saphenous, sural, and tibial nerve distributions Vascular: 2+ dorsalis pedis and posterior tibialis pulses, capillary refill <2 seconds, digits warm and well perfused ASSESSMENT AND PLAN Jade De is a 77 y.o. female patient with LSPR, L IPR, L sacral ala fractures Weight-bearing restrictions: Mobility Protocol: General - Mobility Guidelines Extremity: LLE Extremity Precautions: Extremity Precautions Mobility Restrictions (LLE): Weight bear as tolerated (WBAT) Type of Brace (LLE): None Other mobility precautions: No other precautions required -Anticipate non-operative management -MSK tertiary examination complete and negative for additional injury -PT/OT -Post-mobility films Mick Horn PGY-2 Orthopaedic Surgery Psychiatric Orthopaedic Trauma Service Pager: [phone] Orthopaedic Recon/Spine/Foot and Ankle Service Pager: [phone] Cosigned by Seun Cervantes MD at 08/29/2022 9:45 AM EST Associated attestation - Seun Cervantes MD - 08/29/2022 9:45 AM EST Signature Only * Progress Notes - Key Schultz RN - 08/28/2022 2:28 PM EST Case Management Adult Initial Progress Note Jade De 77 y.o. female CSN: [id number] Admission: 08/28/2022 5:55 AM Primary Problem: Closed fracture of multiple pubic rami, left, initial encounter ([facility]) Grades 9 12 Tutor reviewed chart and spoke with patient to complete this Initial Case Management Assessment. PCP: Rajiv Quezada MD Emergency Contact: Extended Emergency Contact Information Primary Emergency Contact: Jami Gonzalez Address: [address] [facility] [address] Mobile Relation: Daughter Preferred language: Norwegian Quartz Mounter needed? No Insurance: Primary Visit Coverage Payer Plan Sponsor Code Group Number Group Name HU[employer] MEDICARE HU[employer]NA MEDICARE [id number] Primary Visit Coverage Subscriber Subscriber ID Subscriber Name Subscriber SSN Subscriber Address [id number] JADE DE [id number] [address] [place] [address] Patient information: Primary Caregiver: (Self) Accompanied by/Relationship: Jami (daughter) and Granddaughter Support System: (Jami (daughter) and extended family) Daily Living Activities: Functional Status: Independent Living Arrangements: Alone Type of Residence: Private residence, Multi Level (1st level B&B) [address] [facility] [address] Smoker in the Home?: No Assistive Devices: cane, straight, crutches Current DME Provider: unknown Income Information: Income Source: Retired (Currently working for [employer]) Income/Expense Information: Income meets expenses Current Resources Utilized: None Housing Circumstances-Z Codes: Housing Circumstances (select all that apply): None Applicable Patient Referred to: Financial Resources: Other (Comment) (not indicated) Community Resources: Other (Comment) (not requested) Anticipated Discharge Date: TBD Patient's Discharge Goal: Go home Assistance Available at Discharge: Jami (daughter) and extended family Discharge Transport: Jami (daughter) and extended family Follow Up Transport: Jami (daughter) and extended family Home Health / Home Infusion / Outpatient Dialysis Services: None reported. DME: Assistive Devices: cane, straight, crutches Living Will/Advance Directive/Power of Associate Software Developer /Guardian: No LW or POA Additional Comments: Discussed with Team Provider. Patient currently waiting for PT/OT to ambulate. PMF needed. Patient wants to go home, but is not opposed to inpatient rehab if needed. Jami (daughter) and extended family will assist and provide transportation. [employer] Medicare will need pre cert and possible P2P for a dmission. CM will assist with discharge POC. Key Schultz RN * H&P - Celia Albarado NP - 08/28/2022 10:34 AM EST Images from the original note were not included. Chief Concern & History Of Present Illness Jade De is a 77 y.o. female presenting with left hip and groin pain s/p mechanical fall at home last night. She was putting on her a pair of Crocs and lost her balance. She fell onto herleft hip and had immediate pain which was sharp nature. She was able to get up on her own and standbut developed left groin pain with standing. She was minimally able to bear weight on the left leg. She was able to get to her phone to call 911, and was able to get to her front door to let EMS in. At [facility] she was diagnosed with pelvic fractures and sent to here. Imaging her shows left SPR, IPR and sacral ala fractures. She denies any pain as long as she is laying still,though she did get some cramping in her left calf earlier. 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 She lives independently in her own home. PCP is Dr. Rajiv Quezada at [facility]. Past Medical History She has a past medical history of Arthritis, Disease of thyroid gland, HLD (hyperlipidemia), and Hypertension. Surgical History She has no past surgical history on file. Family History Family History Problem Relation Name Age of Onset Heart disease Mother Heart disease Father Social History She reports that she has never smoked. She has never used smokeless tobacco. She reports that she does not drink alcohol and does not use drugs. Occupational History Employer: [employer] Travel History Relevant International Travel History: Travel Screening Question Response In the last 10 days, have you been in contact with someone who was confirmed or suspected to have Coronavirus/COVID-19? No / Unsure Have you had a COVID-19 viral test in the last 10 days? No Do you have any of the following new or worsening symptoms? None of these Have you traveled internationally or domestically in the last month? No Travel History Travel since 07/28/22 No documented travel since 07/28/22 Immunizations reviewed VACCINE/DOSE Flu Tetanus Pneumovax Shingles Allergies Patient has no known allergies. Medications Current Facility-Administered Medications Medication Dose Route Frequency Provider Last Rate Last Admin acetaminophen (Tylenol) tablet 1,000 mg 1,000 mg Oral q6h ROWAN Celia Albarado NP amLODIPine (Norvasc) tablet 5 mg 5 mg Oral Nightly Celia Albarado NP atorvastatin (Lipitor) tablet 20 mg 20 mg Oral Nightly Celia Albarado NP calcium carbonate (Tums) chewable tablet 1,000 mg 1,000 mg Oral Daily Celia Albarado NP celecoxib (CeleBREX) capsule 200 mg 200 mg Oral Daily Celia Albarado NP cholecalciferol (Vitamin D-3) tablet 1,000 Units 1,000 Units Oral Daily Celia Albarado NP [START ON 08/29/2022] levothyroxine (Synthroid, Levoxyl) tablet 75 mcg 75 mcg Oral q AM Celia Albarado NP melatonin tablet 3 mg 3 mg Oral Nightly PRN Celia Albarado NP ondansetron ODT (Zofran-ODT) disintegrating tablet 4 mg 4 mg Oral q6h PRN Celia Albarado NP potassium chloride CR (Klor-Con) ER tablet 40 mEq 40 mEq Oral Once Celia Albarado NP sodium chloride 0.9 % flush 10 mL 10 mL Intravenous q8h PRN Celia Albarado NP And sodium chloride 0.9 % flush 10 mL 10 mL Intravenous PRN Celia Albarado NP traMADol (Ultram) tablet 50 mg 50 mg Oral q4h PRN Celia Albarado NP No current outpatient medications on file. Review of Systems Constitutional: Negative for chills, fever and unexpected weight change. HENT: Negative for congestion and sore throat. Eyes: Negative for visual disturbance. Respiratory: Negative for cough and shortness of breath. Cardiovascular: Negative for chest pain, palpitations and leg swelling. Gastrointestinal: Negative for abdominal pain, constipation, diarrhea, nausea and vomiting. Genitourinary: Negative for difficulty urinating and dysuria. Musculoskeletal: Positive for arthralgias and gait problem. Negative for joint swelling. + left hip pain; reports widespread joint pain due to RA Skin: Negative for rash and wound. Allergic/Immunologic: Negative for environmental allergies, food allergies and immunocompromised state. Neurological: Negative for dizziness, numbness and headaches. Hematological: Negative for adenopathy. Does not bruise/bleed easily. Psychiatric/Behavioral: Negative for confusion. The patient is not nervous/anxious. Physical Exam Constitutional: General: She is not in acute distress. Appearance: Normal appearance. Comments: Appears younger than stated age HENT: Head: Normocephalic and atraumatic. Mouth/Throat: Mouth: Mucous membranes are moist. Eyes: Pupils: Pupils are equal, round, and reactive to light. Cardiovascular: Rate and Rhythm: Normal rate and regular rhythm. Pulses: Normal pulses. Heart sounds: Normal heart sounds. No murmur heard. No friction rub. No gallop. Pulmonary: Effort: Pulmonary effort is normal. Breath sounds: Normal breath sounds. Abdominal: General: Bowel sounds are normal. There is no distension. Palpations: Abdomen is soft. Tenderness: There is no abdominal tenderness. Genitourinary: Comments: Purewick in place, clear yellow urine in canister Musculoskeletal: General: No swelling. Cervical back: Neck supple. Right lower leg: No edema. Left lower leg: No edema. Lymphadenopathy: Cervical: No cervical adenopathy. Skin: General: Skin is warm and dry. Neurological: General: No focal deficit present. Mental Status: She is alert and oriented to person, place, and time. Mental status is at baseline. Psychiatric: Mood and Affect: Mood normal. Behavior: Behavior normal. Thought Content: Thought content normal. Last Recorded Vitals Blood pressure (!) 170/81, pulse 101, temperature 36.7 ??C (98.1 ??F), temperature source Oral, resp. rate 17, height 1.676 m (5' 6 ), weight 83.6 kg (184 lb 4.9 oz), SpO2 96 %. Relevant Results Labs in last 18 hours CBC WBC 11.87 (H) Hb 12.9 Plt 248 Hct 39.1 ANC 10.04 (H) INR ??, PTT ??, Anti-Xa ?? BMP Na 132 (L) Cl 93 (L) BUN 17 Glu 116 (H) K 3.6 (L) Co2 30 (H) Cr 0.60 Ca 9.4 iCa ?? Mg ??, Phos ?? Lactate ?? LFT AST 25 AlkPhos 50 T Prot 7.8 ALK 19 Bili 0.3 Alb ?? D.Bili ?? Assessment/Plan Principal Problem: Closed fracture of multiple pubic rami, left, initial encounter ([facility]) Active Problems: Fracture of left superior pubic ramus, closed, initial encounter ([facility]) Fracture of left inferior pubic ramus, closed, initial encounter ([facility]) Closed fracture of sacrum, initial encounter ([facility]) Acquired hypothyroidism Rheumatoid arthritis involving multiple sites ([facility]) Ms. De is a 77-year-old lady with a PMH of HTN, HLD, hypothyroidism and RA who is presenting with left SPR, IPR and sacral ala fractures s/p mechanical fall. Left SPR, IPR and sacral ala fractures - Fragility fracture s/p mechanical fall - CT bony pelvis report reviewed, shows the above fractures - Per ortho, non-op for now, plan to mobilize with PT/OT and obtain PMFs - Vitamin D level tomorrow AM - Bone and mineral metabolism team consulted - WBAT LLE per ortho - Pain control: Tylenol scheduled, tramadol prn as she is opiate naive; can escalate if needed - Bowel regimen: senna, Miralax - DVT PPX: hold pending confirmation of no OR today - PT/OT ordered Perioperative Risk Stratification RCRI: 0 METS: METS >4 EKG personally reviewed: NSR w/o acute ischemic changes Active cardiac condition such as chest pain, accelerating chest pain, dyspnea on exertion, new or uncontrolled arrhythmia are: Not Present Date of last dose of antiplatelet/anticoagulation: N/A Decompensated organ condition (including acute CHF, acute COPD, acute decompensated cirrhosis) are:Not Present Patient has KRISHNA/home oxygen requirement: No Echo is: Not required RECOMMENDATIONS: Medical Optimization: Patient is medically optimized and can proceed to OR Essential HTN - Resume home amlodipine HLD - Resume home atorvastatin Hypothyroidism - Resume home levothyroxine Leukocytosis - Mild, likely reactive in setting of fracture - CBC tomorrow AM Hypokalemia - Will replace and follow-up tomorrow AM - Check magnesium level Hyponatremia - Na 132 on arrival, unknown baseline - Likely d/t no PO intake since yesterday - Encourage PO intake once confirmation of no OR today - BMP tomorrow AM; if worse, then will warrant further evaluation Rheumatoid arthritis - Continue home Celebrex and Tylenol PPX - Hold pending final plan per ortho; if no OR today, start enoxaparin 30 mg subcutaneous BID * Consults - Beka Teixeira - 08/28/2022 9:30 AM EST Pastoral Care Note Referral From: Software Quality Tester initiated Pastoral Care Provided For: Other (Comment) (Attempted visit) Software Quality Tester attempted visit with patient but patient was unavailable at time of visit due to meeting with clinical staff. Patient Profile: Consult Reasons: Initial visit Unable to Assess: Unavailable Spiritual Assessment: Interventions: Interventions Provided: Other (Comment) (Unavailable) Pastoral Care Outcomes: * Consults - Bari Gallego MD - 08/28/2022 9:25 AM ESTAssociated Order(s): IP CONSULT TO ORTHOPAEDICS ORTHOPAEDIC SURGERY TRAUMA CONSULT NOTE Consult Received: 0611 Patient Examined: 0730 CHIEF COMPLAINT AND REASON FOR VISIT Hip and pelvic pain after fall from standing, fractures found in pelvis at OSH, transferred for further management HISTORY OF PRESENT ILLNESS Jade De is a 77 y.o. female with past medical history of hypertension, hyperlipidemia,hypothyroid, rheumatoid arthritis who presents as transfer from OSH after she was found to have pelvic fractures following a ground level fall last night. Patient states she was changing her shoes and when she was balancing on her left foot fell and landed on her left hip, experienced immediate pain. Has not ambulated since she fell. Denies weakness numbness tingling. Last NPO: 08/27 pm Reactions to Metal: Denies MRSA Hx: Denies Prior DVT/PE: Denies Anticoagulants: Denies PAST MEDICAL HISTORY Past Medical History: Diagnosis Date Arthritis HLD (hyperlipidemia) Hypertension MEDICATIONS No current facility-administered medications for this encounter. No current outpatient medications on file. ALLERGIES No Known Allergies PAST SURGICAL HISTORY History reviewed. No pertinent surgical history. FAMILY HISTORY Reviewed, Noncontributory. 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 REVIEW OF SYSTEMS 14 point review of systems conducted and was otherwise negative except for mentioned in HPI PHYSICAL EXAMINATION General Physical Exam Constitutional No acute distress, Vitals as below Head Normocephalic and atraumatic, appropriate dentition Cardiovascular Peripheral perfusion intact, pulses as below Pulmonary/Chest Good respiratory effort, symmetric chest expansion, no respiratory difficulty appreciated Neurological Alert and oriented to person, place, and time Psychiatric Normal mood and affect, behavior and judgment Skin No rashes or lesions except as mentioned below, no masses Eyes EOMI, Sclera anicteric Abdomen Soft, nontender, nondistended Body mass index is 29.75 kg/m??. VITALS: Visit Vitals BP (!) 170/81 (BP Location: Right arm, Patient Position: Lying) Pulse 101 Temp 36.7 ??C (98.1 ??F) (Oral) Resp 17 Ht 1.676 m (5' 6 ) Wt 83.6 kg (184 lb 4.9 oz) SpO2 96% BMI 29.75 kg/m?? Smoking Status Never BSA 1.97 m?? FOCUSED MUSCULOSKELETAL EXAM: Clavicles non-tender to palpation bilaterally without crepitus Pelvis stable to AP and lateral compression RIGHT UPPER EXTREMITY Inspection: skin intact, no deformity, soft compartments, no pain with passive stretch of digits, non-tender to palpation Range of motion: Full/painless/stable at shoulder, elbow, and wrist Motor: Fires ER/IR, Deltoid, Biceps, Triceps, Wrist flexion, Wrist extension, Finger flexion, Finger extension, Finger abduction, EPL, FPL Sensation: Sensation intact to light touch in axillary, radial, median, and ulnar nerve distributions Vascular: 2+ radial pulse, capillary refill <2 seconds, digits warm and well perfused LEFT UPPER EXTREMITY Inspection: skin intact, no deformity, soft compartments, no pain with passive stretch of digits, non-tender to palpation Range of motion: Full/painless/stable at shoulder, elbow, and wrist Motor: Fires ER/IR, Deltoid, Biceps, Triceps, Wrist flexion, Wrist extension, Finger flexion, Finger extension, Finger abduction, EPL, FPL Sensation: Sensation intact to light touch in axillary, radial, median, and ulnar nerve distributions Vascular: 2+ radial pulse, capillary refill <2 seconds, digits warm and well perfused RIGHT LOWER EXTREMITY Inspection: skin intact, no deformity, soft compartments, no pain with passive stretch of digits, non-tender to palpation Range of motion: Full/painless/stable at hip, knee, and ankle Motor: Fires HAbd, HF, KE, KF, TA, GSC, EHL, FHL Sensation: Sensation intact to light touch in superficial and deep peroneal, saphenous, sural, and tibial nerve distributions Vascular: 2+ dorsalis pedis and posterior tibialis pulses, capillary refill <2 seconds, digits warm and well perfused LEFT LOWER EXTREMITY Inspection: skin intact, no deformity, soft compartments, no pain with passive stretch of digits, non-tender to palpation Range of motion: Full/painless/stable at hip, knee, and ankle Motor: Fires HAbd, HF, KE, KF, TA, GSC, EHL, FHL Sensation: Sensation intact to light touch in superficial and deep peroneal, saphenous, sural, and tibial nerve distributions Vascular: 2+ dorsalis pedis and posterior tibialis pulses, capillary refill <2 seconds, digits warm and well perfused IMAGING CT bony pelvis demonstrates nondisplaced L SPR, L IPR, L sacral ala fractures. ASSESSMENT AND PLAN Jade De is a 77 y.o. female patient with nondisplaced LSPR, L IPR, L sacral ala fractures following ground level fall this morning. -likely non operative treatment at this time -admitted to Medicine -weight-bearing as tolerated left lower extremity -needs to mobilize with PT -will follow-up post mobilization films Cristopher Gallego MD PGY-1, Orthopaedic Surgery Psychiatric Orthopaedic Trauma Service Pager: [phone] Orthopaedic Recon/Spine/Foot and Ankle Service Pager: [phone] Cosigned by Seun Cervantes MD at 08/28/2022 1:37 PM EST Associated attestation - Seun Cervantes MD - 08/28/2022 1:37 PM EST I saw and evaluated the patient with the resident/fellow. I discussed the case with the resident/fellow and agree with the findings and plan as documented. Plan for nonsurgical care, WBAT, post mobility films. I examined her and explained plan. * Consults - Dakota Gibson - 08/28/2022 6:05 AM EST Pastoral Care Note Pastoral Care Provided For: Patient Patient Profile: Consult Reasons: Trauma alert Unable to Assess: Unavailable (Staff were attending to the patient.) Spiritual Assessment: Interventions: Pastoral Care Outcomes: Software Quality Tester responded to trauma alert. No family were present at the time. * ED Procedure Note - Lola Dexter MD - 08/28/2022 5:55 AM ESTAssociated Order(s): POC Ultrasound - Bedside Procedure Reason: blunt trauma, fall POC Ultrasound - Bedside Performed by: Lola Dexter MD Authorized by: Kay Herrera MD Procedure specific details: EFAST Ultrasound Indication: Blunt trauma Views: LUQ, RUQ, Pelvis, Limited Cardiac, Limited Thoracic Interpretation: Peritoneal Free Fluid: Absent Pericardial effusion: absent Right thoracic free Fluid: absent Left thoracic Free Fluid: absent Right lung pneumothorax: absent Left Lung pneumothorax: absent The images were Saved in Qpath - E. The study was technically adequate. Comments: negative e fast Lola Dexter MD Resident 08/28/221651 Cosigned by Dale Vazquez MD at 09/01/2022 12:26 PM EST Associated attestation - Dale Vazquez MD - 09/01/2022 12:26 PM EST I saw and evaluated the patient with the resident/fellow. I discussed the case with the resident/fellow and agree with the findings and plan as documented. I was present during the critical and mckeon portions of the procedure and immediately available to furnish services the entire duration. See resident note for details. * ED Provider Notes - Lola Dexter MD - 08/28/2022 5:55 AM EST HPI Chief Complaint Patient presents with Trauma Alert HPI Patient is a 77-year-old patient with past medical history significant for hypertension, hyperlipidemia, arthritis who presents to emergency department after fall from standing. Patient was putting on her Crocs in her living room when she put her left foot in her left shoe and was trying to put herright foot in her right shoe and lost balance and fell on her left hip. Patient is now complaining of left hip pain. Patient went to outside hospital where they obtained x-rays of pelvis that were significant for left inferior and superior pubic rami fractures and transferred patient to our ED. patient denies loss of consciousness, blood thinner use, any other injuries. Patient has not been able to ambulate since accident. Patient is now complaining of moderate left hip pain that is worse with moving. [place] Coma Scale Score: 15 Patient History Past medical history significant for hyperlipidemia, arthritis, hypertension Tobacco Use Smoking status: Never Smokeless tobacco: Never Substance Use Topics Alcohol use: Never Drug use: Never Immunization History Immunization History: reviewed Allergies: NKDA Review of Systems Review of Systems Constitutional: Negative for chills and fever. HENT: Negative for ear pain and sore throat. Eyes: Negative for pain and visual disturbance. Respiratory: Negative for cough and shortness of breath. Cardiovascular: Negative for chest pain and palpitations. Gastrointestinal: Negative for abdominal pain and vomiting. Genitourinary: Negative for dysuria and hematuria. Musculoskeletal: Positive for arthralgias. Negative for back pain. Skin: Negative for color change and rash. Neurological: Negative for seizures and syncope. All other systems reviewed and are negative. Physical Exam ED Triage Vitals Temp Heart Rate Resp BP 08/28/22 0559 08/28/22 0556 08/28/22 0556 08/28/22 0556 36.7 ??C (98.1 ??F) 96 15 (!) 151/90 SpO2 Temp src Heart Rate Source Patient Position 08/28/22555 -- 08/28/22555 -- 95 % Monitor BP Location FiO2 (%) -- -- Physical Exam Vitals and nursing note reviewed. Constitutional: General: She is not in acute distress. Appearance: She is well-developed. HENT: Head: Normocephalic and atraumatic. Eyes: Conjunctiva/sclera: Conjunctivae normal. Cardiovascular: Rate and Rhythm: Normal rate and regular rhythm. Heart sounds: No murmur heard. Pulmonary: Effort: Pulmonary effort is normal. No respiratory distress. Breath sounds: Normal breath sounds. Abdominal: Palpations: Abdomen is soft. Tenderness: There is no abdominal tenderness. Musculoskeletal: General: Tenderness (left lateral and posterior hip) present. Cervical back: Neck supple. Comments: Decreased range of motion of left hip and left knee secondary to pain of left hip. Full range of motion of all other joints Skin: General: Skin is warm and dry. Findings: No bruising or lesion. Neurological: Mental Status: She is alert. ED Course & MDM Patient is a 77-year-old patient with past medical history significant for hypertension, hyperlipidemia, arthritis who presents to emergency department after fall from standing. Patient was diagnosedwith left superior and inferior pubic rami fractures from outside hospital x-ray. Differential includes occult acute fractures of pelvis not evaluated Fully on x-ray. Workup included CBC, CMP, CT bony pelvis, CT chest, CT pelvis that was significant for: ED Course as of 08/28/22 0837 Brittney Aug 28, 2022 0834 XR Pelvis 1 or 2 Views Comminuted superior and inferior left pubic rami fractures 0834 CT Bony Pelvis Comminuted mildly displaced fractures involving the left superior and inferior pubic rami. Nondisplaced left sacral ala fracture 0834 Sodium(!): 132 Clinical Impressions as of 08/28/22 0837 Closed fracture of multiple pubic rami, left, initial encounter ([facility]) Closed fracture of sacrum, unspecified portion of sacrum, initial encounter ([facility]) Patient denied pain as it was well managed from pain medication provided outside hospital. HospitalFragility team was consulted for admission secondary to of fragility fracture. Orthopedic surgery was consulted secondary to pelvic fractures. [facility] evaluation and management. ED Disposition: Admit MDM Amount and/or Complexity of Data Reviewed Clinical lab tests: reviewed Tests in the radiology section of CPT??: reviewed ED Prescriptions None Sign Off Checklist Clinical Impression: Complete ED Disposition: Complete Lola Dexter MD Resident 08/28/22 0837 Cosigned by Dale Vazquez MD at 09/01/2022 12:26 PM EST Associated attestation - Dale Vazquez MD - 09/01/2022 12:26 PM EST I saw and evaluated the patient with the resident/fellow. I discussed the case with the resident/fellow and agree with the findings and plan as documented. * ED Triage Notes - Cassi Vargas RN - 08/28/2022 5:55 AM EST Around 2330 on 08/27/22 pt lost balance and tripped over her shoes. Pt states she landed on her lefthip. (-) LOC and (-) blood thinners. Pt was taken to OSH and sent here for further eval due to concerns of left sided pelvic fractures. * Progress Notes - Obi Green MD - 08/28/2022 5:55 AM EST I received sign-out and accepted care of this patient from the departing Drs: resident Lola Dexter and attending Kay Herrera at 7:00 am. Please see the primary providers??? note for complete elements of the history, physical exam, and ED course. Illness Severity: Stable Patient Summary: Jade De is a 77 y.o. female with a PMHx of Past Medical History: Diagnosis Date Arthritis Disease of thyroid gland HLD (hyperlipidemia) Hypertension presented to the ED after a fall from standing. She fell on her left hip and is complaining of lefthip pain. At OSH, xrays showed left inferior and superior pubic rami fractures and transferred patient to our ED. Xrays here showed Comminuted superior and inferior left pubic rami fractures, as wellas suspected left sacral fracture. CT pelvis showed comminuted mildly displaced fractures involvingthe left superior and inferior pubic rami and nondisplaced left sacral ala fracture. Most recent vital signs: Visit Vitals BP 123/66 Pulse 85 Temp 36.7 ??C (98.1 ??F) Resp 14 Ht 1.676 m (5' 6 ) Wt 83.6 kg (184 lb 4.9 oz) SpO2 95% BMI 29.75 kg/m?? Smoking Status Never BSA 1.97 m?? Lab and imaging results: Labs in last 18 hours CBC WBC 7.15 Hb 11.3 Plt 228 Hct 34.1 ANC ?? BMP Na 131 (L) Cl 95 (L) BUN 10 Glu 104 (H) K 4.4 Co2 28 Cr 0.57 (L) Ca 8.6 (L) LFT AST ?? AlkPhos ?? T Prot ?? ALK ?? Bili ?? Alb ?? XR Chest 1 View Result Date: 08/28/2022 Impression: No evidence of acute injury within the imaged chest Comminuted superior and inferior left pubic rami fractures. Suspected left sacral fracture also present. XR Pelvis 1 or 2 Views Result Date: 08/28/2022 Impression: No evidence of acute injury within the imaged chest Comminuted superior and inferior left pubic rami fractures. Suspected left sacral fracture also present. CT Bony Pelvis Result Date: 08/28/2022 Impression: Comminuted mildly displaced fractures involving the left superior and inferior pubic rami. Nondisplaced left sacral ala fracture. Action plan (To Do): -follow up with ortho recs -Pain control Disposition: Likely admit Clinical Impressions as of 08/29/22 1403 Closed fracture of multiple pubic rami, left, initial encounter ([facility]) Closed fracture of sacrum, unspecified portion of sacrum, initial encounter ([facility]) Cosigned by Kay Herrera MD at 08/29/2022 2:03 PM EST Associated attestation - Kay Herrera MD - 08/29/2022 2:03 PM EST Seen by resident only. I, Kay Herrera MD, received this patient in transfer of care during their emergency department visit. I have discussed the on-going care with resident and agree with the documented care provided inthe transfer of care note. documented in this encounter Plan of Treatment Not on file documented as of this encounter Procedures Procedure Name Priority Date/Time Associated Diagnosis Comments EXTRA TUBE LAVENDER TOP Routine 09/03/2022 6:33 AM EST EXTRA TUBES Routine 09/03/2022 6:33 AM EST BASIC METABOLIC PANEL, PLASMA Routine 09/03/2022 6:23 AM EST OSMOLALITY, URINE Routine 09/02/2022 9:3 6 AM EST EXTRA TUBE LAVENDER TOP Routine 09/02/2022 4:30 AM EST EXTRA TUBES Routine 09/02/2022 4:30 AM EST TSH Add-On 09/02/2022 4:24 AM EST FREE T4, PLASMA Add-On 09/02/2022 4:24 AM EST OSMOLALITY, SERUM Add-On 09/02/2022 4:2 4 AM EST BASIC METABOLIC PANEL, PLASMA Pending Discharge 09/02/2022 4:24 AM EST BASIC METABOLIC PANEL, PLASMA Routine 08/31/2022 4:28 AM EST BASIC METABOLIC PANEL, PLASMA Routine 08/30/2022 5:22 AM EST XR PELVIS 3+ VIEWS Routine 08/29/2022 10:56 AM EST VITAMIN D 25 HYDROXY Routine 08/29/2022 4:07 AM EST CBC W/O DIFFERENTIAL Routine 08/29/2022 4:07 AM EST BASIC METABOLIC PANEL, PLASMA Routine 08/29/2022 4:07 AM EST ED PROTOCOL HIV 1/2 ANTIBODY/ANTIGEN SCREEN W/REFLEX TO HIV 1/2 ANTIBODY DIFFERENTIATION STAT 08/28/2022 12:09 PM EST HIV 1/2 ANTIBODY/ANTIGEN SCREEN WITH REFLEX TO HIV I/II DIFFERENTIATION STAT 08/28/2022 12:09 PM EST SARS COV-2/COVID-19 BY PCR Routine 08/28/2022 12:[address] BONY PELVIS STAT 08/28/2022 6:22 AM EST XR PELVIS 1 OR 2 VIEWS STAT 6:19 AM EST XR CHEST 1 VIEW STAT 08/28/2022 6:19 AM EST HEPATITIS C ANTIBODY - ED W/REFLEX TO HCV QUANT PCR STAT 08/28/2022 6:13 AM EST CBC WITH AUTO DIFFERENTIAL STAT 08/28/2022 6:12 AM EST MAGNESIUM, PLASMA Add-On 08/28/2022 6:1 2 AM EST COMPREHENSIVE METABOLIC PANEL, PLASMA STAT 08/28/2022 6:12 AM EST [facility] ED POCUS PROCDOC Routine 08/28/2022 5:55 AM EST documented in this encounter Results * Lavender Top (09/03/2022 6:33 AM EST) Extra Hold for add-ons. 09/03/2022 9:02 AM EST [facility] Comment:Auto resulted. Blood Venous blood specimen / Unknown 09/03/2022 6:33 AM EST 09/03/2022 6:34 AM EST us Iron Roberts MD LAB BLOOD ORDERABLES Final Re sult [facility] [address] [place] [id number] * (ABNORMAL) Basic metabolic panel (09/03/2022 6:23 AM EST) Glucose, Plasma 102(H) 74 - 99 mg/dL 09/03/2022 7:[address] [facility] BUN, Plasma 15 8 - 23 mg/dL 09/03/2022 7:[address] [facility] Creatinine, Plasma 0.64 0.60 - 1.10 mg/dL 09/03/2022 7:[address] [facility] BUN/Creatinine Ratio 23 09/03/2022 7:[address] [facility] Sodium, Plasma 133(L) 136 - 145 mmol/L 09/03/2022 7:[address] [facility] Potassium, Plasma 4.4 3.7 - 4.8 mmol/L 09/03/2022 7:[address] [facility] Comment:Reference range for Serum potassium is 0.2 to 0.5 mmol/L higher than Plasma range. Chloride, Plasma 93(L) 97 - 107 mmol/L 09/03/2022 7:[address] [facility] CO2, Plasma 30(H) 22 - 29 mmol/L 09/03/2022 7:[address] [facility] Anion Gap 10 6 - 16 mmol/L 09/03/2022 7:[address] [facility] Total Calcium, Plasma 9.3 8.9 - 10.2 mg/dL 09/03/2022 7:07 AM EST [facility] eGFRcr 90.6 mL/min/1.7 3m*2 09/03/2022 7:07 AM EST [facility] Comment: Reported eGFRcr in mL/min/1.73m2 is based the CKD-EPI 2020 equation that does not use a race coefficient. Effective 05/14/22 our laboratory changed the eGFR calculation to the CKD-EPI 2021 equation from the previously reported eGFR, based on the MDRD equation. ??For comparisons between the two equations, please see laboratory website: ??[email or web address] Blood Venous blood specimen / Unknown Venipuncture / Unknown 09/03/2022 6:23 AM EST 09/03/2022 6:36 AM EST us Mary Bae APRN LAB BLOOD ORDERABLES Kimmie l Result Performing Organization Address City/[facility]/ZIP Co de Phone Number [facility] [address] [place] [address] * Osmolality, Urine (09/02/2022 9:36 AM EST) Osmolality, Urine 449 50 - 1,200 mOsm/kg 09/02/2022 10:[address] [facility] Urine Urine specimen obtained by clean catch procedure / Unknown Non-blood Collection / Unknown 09/02/2022 9:36 AM EST 09/02/2022 9:45 AM EST us Tiffany GARSIA LAB URINE ORDERABLES Final Res ult [facility] [address] [place] [address] * Lavender Top (09/02/2022 4:30 AM EST) Extra Hold for add-ons. 09/02/2022 7:02 AM EST [facility] Comment:Auto resulted. Blood Venous blood specimen / Unknown 09/02/2022 4:30 AM EST 09/02/2022 4:41 AM EST us Phyllis Lamar MD LAB BLOOD ORDERABLES Final Resul t Performing Organization Address City/[facility] Co de Phone Number [facility] [address] [place] [address] * T4, free (09/02/2022 4:24 AM EST) Free T4, Plasma 1.0 0.8 - 1.7 ng/dL 09/02/2022 4:41 PM EST [facility] Blood Venous blood specimen / Unknown Venipuncture / Unknown 09/02/2022 4:24 AM EST 09/02/2022 4:42 AM EST Tiffany GARSIA LAB BLOOD ORDERABLES Final Res ult Performing Organization Address [facility] de Phone Number [facility] [address] [place] [address] * (ABNORMAL) TSH (09/02/2022 4:24 AM EST) Thyroid Stimulating Hormone, Plasma 12.80(H) 0.40 - 4.20 uIU/mL 09/02/2022 4:41 PM EST [facility] Blood Venous blood specimen / Unknown Venipuncture / Unknown 09/02/2022 4:24 AM EST 09/02/2022 4:42 AM EST Tiffany GARSIA LAB BLOOD ORDERABLES Final Res ult Performing Organization Address [facility] de Phone Number [facility] [address] [place] [address] * (ABNORMAL) Osmolality, Plasma (09/02/2022 4:24 AM EST) Osmolality, Serum 269(L) 280 - 301 mOsm/Kg 09/02/2022 8:37 AM EST [facility] Blood Venous blood specimen / Unknown Venipuncture / Unknown 09/02/2022 4:24 AM EST 09/02/2022 4:42 AM EST Tiffany GARSIA LAB BLOOD ORDERABLES Final Res ult [facility] [address] [place] [address] * (ABNORMAL) Basic Metabolic Panel, Plasma (09/02/2022 4:24 AM EST) Glucose, Plasma 100(H) 74 - 99 mg/dL 09/02/2022 5:[address] [facility] BUN, Plasma 18 8 - 23 mg/dL 09/02/2022 5:[address] [facility] Creatinine, Plasma 0.61 0.60 - 1.10 mg/dL 09/02/2022 5:[address] [facility] BUN/Creatinine Ratio 30 09/02/2022 5:[address] [facility] Sodium, Plasma 130(L) 136 - 145 mmol/L 09/02/2022 5:[address] [facility] Potassium, Plasma 4.3 3.7 - 4.8 mmol/L 09/02/2022 5:[address] [facility] Comment:Reference range for Serum potassium is 0.2 to 0.5 mmol/L higher than Plasma range. Chloride, Plasma 93(L) 97 - 107 mmol/L 09/02/2022 5:[address] [facility] CO2, Plasma 27 22 - 29 mmol/L 09/02/2022 5:[address] [facility] Anion Gap 10 6 - 16 mmol/L 09/02/2022 5:[address] [facility] Total Calcium, Plasma 9.0 8.9 - 10.2 mg/dL 09/02/2022 5:[address] [facility] eGFRcr 91.6 mL/min/1.7 3m*2 09/02/2022 5:[address] [facility] Comment: Reported eGFRcr in mL/min/1.73m2 is based the CKD-EPI 2021 equation that does not use a race coefficient. Effective 05/14/22 our laboratory changed the eGFR calculation to the CKD-EPI 2021 equation from the previously reported eGFR, based on the MDRD equation. ??For comparisons between the two equations, please see laboratory website: ??[email or web address].Graphite [email or web address] Blood Venous blood specimen / Unknown Venipuncture / Unknown 09/02/2022 4:24 AM EST 09/02/2022 4:42 AM EST us Tiffany GARSIA LAB BLOOD ORDERABLES Final Res ult [facility] [address] [place] [address] * (ABNORMAL) Basic Metabolic Panel, Plasma (08/31/2022 4:28 AM EST) Glucose, Plasma 107(H) 74 - 99 mg/dL 08/31/2022 5:[address] [facility] BUN, Plasma 12 8 - 23 mg/dL 08/31/2022 5:[address] [facility] Creatinine, Plasma 0.55(L) 0.60 - 1.10 mg/dL 08/31/2022 5:[address] [facility] BUN/Creatinine Ratio 22 08/31/2022 5:[address] [facility] Sodium, Plasma 130(L) 136 - 145 mmol/L 08/31/2022 5:[address] [facility] Potassium, Plasma 4.2 3.7 - 4.8 mmol/L 08/31/2022 5:[address] [facility] Comment:Reference range for Serum potassium is 0.2 to 0.5 mmol/L higher than Plasma range. Chloride, Plasma 94(L) 97 - 107 mmol/L 08/31/2022 5:[address] [facility] CO2, Plasma 28 22 - 29 mmol/L 08/31/2022 5:[address] [facility] Anion Gap 8 6 - 16 mmol/L 08/31/2022 5:[address] [facility] Total Calcium, Plasma 8.7(L) 8.9 - 10.2 mg/dL 08/31/2022 5:[address] [facility] eGFRcr 94.0 mL/min/1.7 3m*2 08/31/2022 5:[address] [facility] Comment: Reported eGFRcr in mL/min/1.73m2 is based the CKD-EPI 2021 equation that does not use a race coefficient. Effective 05/14/22 our laboratory changed the eGFR calculation to the CKD-EPI 2021 equation from the previously reported eGFR, based on the MDRD equation. ??For comparisons between the two equations, please see laboratory website: ??[email or web address].Graphite Software/[facility] Blood Venous blood specimen / Unknown Venipuncture / Unknown 08/31/2022 4:28 AM EST 08/31/2022 4:47 AM EST Genoveva Rowell JANICE LAB BLOOD ORDERABLES Final Result [facility] [address] [place] [address] * (ABNORMAL) Basic metabolic panel (08/30/2022 5:22 AM EST) Pathologist [facility] Glucose, Plasma 105(H) 74 - 99 mg/dL 08/30/2022 6:[address] [facility] BUN, Plasma 13 8 - 23 mg/dL 08/30/2022 6:[address] [facility] Creatinine, Plasma 0.57(L) 0.60 - 1.10 mg/dL 08/30/2022 6:[address] [facility] BUN/Creatinine Ratio 23 08/30/2022 6:[address] [facility] Sodium, Plasma 130(L) 136 - 145 mmol/L 08/30/2022 6:[address] [facility] Potassium, Plasma 4.2 3.7 - 4.8 mmol/L 08/30/2022 6:[address] [facility] Comment:Reference range for Serum potassium is 0.2 to 0.5 mmol/L higher than Plasma range. Chloride, Plasma 93(L) 97 - 107 mmol/L 08/30/2022 6:[address] [facility] CO2, Plasma 27 22 - 29 mmol/L 08/30/2022 6:[address] [facility] Anion Gap 10 6 - 16 mmol/L 08/30/2022 6:[address] [facility] Total Calcium, Plasma 8.7(L) 8.9 - 10.2 mg/dL 08/30/2022 6:[address] [facility] eGFRcr 93.2 mL/min/1.7 3m*2 08/30/2022 6:[address] [facility] Comment: Reported eGFRcr in mL/min/1.73m2 is based the CKD-EPI 2020 equation that does not use a race coefficient. Effective 05/14/22 our laboratory changed the eGFR calculation to the CKD-EPI 2020 equation from the previously reported eGFR, based on the MDRD equation. ??For comparisons between the two equations, please see laboratory website: ??[email or web address].Graphite Software/[email or web address] Blood Venous blood specimen / Unknown Venipuncture / Unknown 08/30/2022 5:22 AM EST 08/30/2022 5:46 AM EST Genoveva Rowell JANICE LAB BLOOD ORDERABLES Final Result [facility] [address] [place], [place] [id number] * XR Pelvis 3+ Views (08/29/2022 10:56 AM EST) Anatomical Region Laterality Modality Body, Pelvis Computed Radiogr aphy Impressions 09/01/2022 6:46 AM EST Left obturator ring fracture is in similar alignment to the prior study. Left sacral alar fracture is not well-visualized on the current exam. CRITICAL RESULT: ?? No. COMMUNICATION: Per this written report. Dictated by Ronny Brooke MD on 09/01/2022 6:44 AM Signed by Ronny Brooke MD on 09/01/2022 6:46 AM Narrative 09/01/2022 6:46 AM EST Exam/Procedure: XR PELVIS 3+ VIEWS ordered by IRON ROBERTS [id number] CLINICAL INDICATION: post-mobility with PT TECHNIQUE: XR PELVIS 3+ VIEWS COMPARISON: 08/28/2022 FINDINGS: Left obturator ring fracture is again noted. Left sacral fracture is obscured by overlying bowel gas. Femoral heads align with the acetabula. No new fracture is noted. Procedure Note Ronny Brooke MD - 09/01/2022 Exam/Procedure: XR PELVIS 3+ VIEWS ordered by IRON ROBERTS [id number] CLINICAL INDICATION: post-mobility with PT TECHNIQUE: XR PELVIS 3+ VIEWS COMPARISON: 08/28/2022 FINDINGS: Left obturator ring fracture is again noted. Left sacral fracture isobscured by overlying bowel gas. Femoral heads align with the acetabula.No new fracture is noted. IMPRESSION: Left obturator ring fracture is in similar alignment to the prior study.Left sacral alar fracture is not well-visualized on the current exam. CRITICAL RESULT: No. COMMUNICATION: Per this written report. Dictated by Ronny Brooke MD on 09/01/2022 6:44 AM Signed by Ronny Brooke MD on 09/01/2022 6:46 AM Iron Roberts MD IMG XR PROCEDURES Final Resul t * (ABNORMAL) Basic Metabolic Panel, Plasma (08/29/2022 4:07 AM EST) Glucose, Plasma 104(H) 74 - 99 mg/dL 08/29/2022 4:55 AM EST [facility] BUN, Plasma 10 8 - 23 mg/dL 08/29/2022 4:55 AM EST [facility] Creatinine, Plasma 0.57(L) 0.60 - 1.10 mg/dL 08/29/2022 4:55 AM EST [facility] BUN/Creatinine Ratio 18 08/29/2022 4:55 AM EST [facility] Sodium, Plasma 131(L) 136 - 145 mmol/L 08/29/2022 4:55 AM EST [facility] Potassium, Plasma 4.4 3.7 - 4.8 mmol/L 08/29/2022 4:55 AM EST [facility] Comment:Reference range for Serum potassium is 0.2 to 0.5 mmol/L higher than Plasma range. Chloride, Plasma 95(L) 97 - 107 mmol/L 08/29/2022 4:55 AM EST [facility] CO2, Plasma 28 22 - 29 mmol/L 08/29/2022 4:55 AM EST [facility] Anion Gap 8 6 - 16 mmol/L 08/29/2022 4:55 AM EST [facility] Total Calcium, Plasma 8.6(L) 8.9 - 10.2 mg/dL 08/29/2022 4:55 AM EST [facility] eGFRcr 93.2 mL/min/1.7 3m*2 08/29/2022 4:55 AM EST [facility] Comment: Reported eGFRcr in mL/min/1.73m2 is based the CKD-EPI 202 equation that does not use a race coefficient. Effective 05/14/22 our laboratory changed the eGFR calculation to the CKD-EPI 202 equation from the previously reported eGFR, based on the MDRD equation. ??For comparisons between the two equations, please see laboratory website: ??[email or web address] Blood Venous blood specimen / Unknown Venipuncture / Unknown 08/29/2022 4:07 AM EST 08/29/2022 4:28 AM EST us Celia Albarado FAILURE ANALYSIS ENGINEER LAB BLOOD ORDERABLES Final R esult [facility] [address] [place] [address] * (ABNORMAL) CBC W/O Differential (08/29/2022 4:07 AM EST) WBC Count 7.15 3.70 - 10.30 10*3/uL LAB HEMATOLOGY METHOD 08/29/2022 4:[address] [facility] RBC Count 3.77(L) 3.90 - 5.20 10*6/uL LAB HEMATOLOGY METHOD 08/29/2022 4:[address] [facility] HGB 11.3 11.2 - 15.7 g/dL LAB HEMATOLOGY METHOD 08/29/2022 4:[address] [facility] HCT 34.1 34.0 - 45.0 % LAB HEMATOLOGY METHOD 08/29/2022 4:[address] [facility] Platelet Count 228 155 - 369 10*3/uL LAB HEMATOLOGY METHOD 08/29/2022 4:[address] [facility] MCV 91 79 - 98 fL LAB HEMATOLOGY METHOD 08/29/2022 4:[address] [facility] MCH 30.0 26.0 - 32.0 pg LAB HEMATOLOGY METHOD 08/29/2022 4:[address] [facility] MCHC 33.1 30.7 - 35.5 g/dL LAB HEMATOLOGY METHOD 08/29/2022 4:[address] [facility] RDW 13.1 11.5 - 14.5 % LAB HEMATOLOGY METHOD 08/29/2022 4:[address] [facility] MPV 10.8 8.8 - 12.5 fL LAB HEMATOLOGY METHOD 08/29/2022 4:[address] [facility] nRBC 0.0 <=0.0 per 100 WBCs LAB HEMATOLOGY METHOD 08/29/2022 4:[address] [facility] Blood Venous blood specimen / Unknown Venipuncture / Unknown 08/29/2022 4:07 AM EST 08/29/2022 4:10 AM EST Celia Albarado APRN LAB BLOOD ORDERABLES Final R esult Performing Organization Address City/[facility]/ZIP Co de Phone Number [facility] [address] [place] [address] * Vitamin D 25 hydroxy (08/29/2022 4:07 AM EST) Vitamin D 25 Hydroxy 37.3 20.0 - 80.0 ng/mL 08/29/2022 4:55 PM EST [facility] Comment: Vitamin D, 25-Hydroxy reference range, age 18 years and up: Deficiency: ? <12 ng/mL Insufficiency: ?12 to 19 ng/mL Sufficiency: ?20 to 80 ng/mL Possible toxicity: ??>100 ng/mL Blood Venous blood specimen / Unknown Venipuncture / Unknown 08/29/2022 4:07 AM EST 08/29/2022 4:36 AM EST Celia Albarado APRN LAB BLOOD ORDERABLES Final R esult Performing Organization Address City/[facility] Co de Phone Number [facility] [address] [place] [address] * HIV 1 & 2 Antibody/Antigen Screen (08/28/2022 12:09 PM EST) Pathologist [facility] HIV 1 & 2 Antibody/Anti gen Screen Nonreactive Nonreactive 08/28/2022 2:[address] [facility] Blood Venous blood specimen / Unknown Venipuncture / Unknown 08/28/2022 12:09 PM EST 08/28/2022 1:16 PM EST Dale Vazquez MD LAB BLOOD ORDERABLES Final Result Performing Organization Address City/[facility]/ZIP Co de Phone Number [facility] [address] [place] [address] * SARS CoV-2/COVID-19 by PCR (08/28/2022 12:06 PM EST) SARS CoV-2/COVID-1 9 RNA PCR Result Not Detected Not Detected 08/28/2022 5:41 PM EST [facility] Swab Nasopharyngeal structure / Unknown Non-blood Collection / Unknown 08/28/2022 12:06 PM EST 08/28/2022 1:53 PM EST Narrative [facility] - 08/28/2022 5:41 PM EST This assay is for in vitro diagnostic use under FDA emergency use authorization only. Negative results do not preclude infection with the SARS CoV-2 virus and should not be the sole basis of a patient treatment/management or public health decision. Follow up testing should be performed according to the current CDC recommendations. This test was performed using the Aniikanity m SARS CoV-2 assay, a PCR-based method. The limit of detection (LoD) for this assay is 100 copies/mL. Use of Alinity m SARS CoV-2 assay in an asymptomatic screening population is intended to be used as part of an infection control plan, that may include additional preventative measures such a predefined serial testing plan or directed testing of high-risk individuals. Negative results should be considered presumptive and do not preclude current or future infection obtained through community transmission or other exposures. Negative results must be considered in the context of an individual's recent exposures, history, presence of clinical signs and symptoms consistent with COVID-19. Celia Albarado APRN LAB MICROBIOLOGY - GENERAL O RDERABLES Final Result Performing Organization Address City/State/[facility] Co de Phone Number [facility] [address] [place] [phone] * CT Bony Pelvis (08/28/2022 6:22 AM EST) Anatomical Region Laterality Modality Pelvis Computed Tomogra phy Impressions 08/28/2022 6:38 AM EST Comminuted mildly displaced fractures involving the left superior and inferior pubic rami. Nondisplaced left sacral ala fracture. CRITICAL RESULT: No. COMMUNICATION: Per this written report. Approved by Ziggy Cruz MD on 08/28/2022 6:28 AM By electronically signing this report, I, the attending physician, attest that I have personally reviewed the images/data for the above examination(s) and agree with the final edited report. Dictated by Ziggy Cruz MD on 08/28/2022 6:28 AM Signed by Seun Yates MD on 08/28/2022 6:38 AM Narrative 08/28/2022 6:38 AM EST Exam/Procedure: CT BONY PELVIS ordered by DALE VAZQUEZ, [id number] CLINICAL INDICATION: Pelvic fracture TECHNIQUE: Multiple axial CT images were obtained through level of pelvis per CT Bony Pelvis protocol. The axial CT data set was used to generate high resolution reformatted images in the coronal and sagittal planes to facilitate diagnostic accuracy and treatment planning. ?? Total DLP (Dose-Length Product): 270.76 mGy.cm. Please note: The reported value represents the total of one or more individual components during the CT acquisition on this date and at this time, and as such, the same value may appear in more than one CT report depending on the interpreting/reporting physicians. COMPARISON: CT bony pelvis from outside hospital, 4 hours prior. FINDINGS: Comminuted fractures involving the left superior and inferior pubic rami. The pubic symphysis remain well aligned. Nondisplaced involving the left sacral aorta The femoral heads are well seated within the styloid bilaterally. The SI joints are well aligned. Mild soft tissue edema adjacent to the fracture sites. Prominent disc space narrowing at L5-S1 level with associated endplate sclerosis and osteophyte formation. Distended urinary bladder, with no evidence of wall thickening. Prior hysterectomy. The visualized small and large bowel are nondilated. Procedure Note Seun Yates MD - 08/28/2022 Exam/Procedure: CT BONY PELVIS ordered by DALE VAZQUEZ, [id number] CLINICAL INDICATION: Pelvic fracture TECHNIQUE: Multiple axial CT images were obtained through level of pelvis per CT BonyPelvis protocol. The axial CT data set was used to generate highresolution reformatted images in the coronal and sagittal planes tofacilitate diagnostic accuracy and treatment planning. Total DLP (Dose-Length Product): 270.76 mGy.cm. Please note: The reportedvalue represents the total of one or more individual components during theCT acquisition on this date and at this time, and as such, the same valuemay appear in more than one CT report depending on theinterpreting/reporting physicians. COMPARISON: CT bony pelvis from outside hospital, 4 hours prior. FINDINGS: Comminuted fractures involving the left superior and inferior pubic rami.The pubic symphysis remain well aligned. Nondisplaced involving the leftsacral aorta The femoral heads are well seated within the styloidbilaterally. The SI joints are well aligned. Mild soft tissue edemaadjacent to the fracture sites. Prominent disc space narrowing at L5-N3dzohr with associated endplate sclerosis and osteophyte formation. Distended urinary bladder, with no evidence of wall thickening. Priorhysterectomy. The visualized small and large bowel are nondilated. IMPRESSION: Comminuted mildly displaced fractures involving the left superior andinferior pubic rami. Nondisplaced left sacral ala fracture. CRITICAL RESULT: No. COMMUNICATION: Per this written report. Approved by Ziggy Cruz MD on 08/28/2022 6:28 AM By electronically signing this report, I, the attending physician, attestthat I have personally reviewed the images/data for the aboveexamination(s) and agree with the final edited report. Dictated by Ziggy Cruz MD on 08/28/2022 6:28 AM Signed by Seun Yates MD on 08/28/2022 6:38 AM us Dale Vazquez MD IMG CT PROCEDURES Final Res ult * XR Pelvis 1 or 2 Views (08/28/2022 6:19 AM EST) Anatomical Region Laterality Modality Body, Pelvis Digital Radiogra phy Impressions 08/28/2022 6:30 AM EST No evidence of acute injury within the imaged chest Comminuted superior and inferior left pubic rami fractures. Suspected left sacral fracture also present. CRITICAL RESULT: ?? No. COMMUNICATION: Per this written report.. Approved by Ziggy Cruz MD on 08/28/2022 6:24 AM By electronically signing this report, I, the attending physician, attest that I have personally reviewed the images/data for the above examination(s) and agree with the final edited report. Dictated by Ziggy Cruz MD on 08/28/2022 6:24 AM Signed by Seun Yates MD on 08/28/2022 6:30 AM Narrative 08/28/2022 6:30 AM EST Exam/Procedure: XR CHEST 1 VIEW, XR PELVIS 1 OR 2 VIEWS ordered by DALE VAZQUEZ, [id number] CLINICAL INDICATION: fall from standing TECHNIQUE: Single AP view of the chest. Single view of the pelvis. COMPARISON: CT bony pelvis from outside hospital, 3 hours prior. Chest x-ray from [facility], 3 hours prior. FINDINGS: No focal consolidation. Decreased lung volumes. Heart and mediastinal contours are within normal limits. No pneumothorax. No pleural effusion. No acute osseous findings within the imaged chest. Redemonstration of comminuted superior and inferior left pubic rami fractures. The pubic symphysis remains well aligned. The femoral heads are well-seated within the acetabula bilaterally. The SI joints are well aligned. Procedure Note Seun Yates MD - 08/28/2022 Exam/Procedure: XR CHEST 1 VIEW, XR PELVIS 1 OR 2 VIEWS ordered by AYDE VAZQUEZ, [id number] CLINICAL INDICATION: fall from standing TECHNIQUE: Single AP view of the chest. Single view of the pelvis. COMPARISON: CT bony pelvis from outside hospital, 3 hours prior. [facility] prior. FINDINGS: No focal consolidation. Decreased lung volumes. Heart and mediastinalcontours are within normal limits. No pneumothorax. No pleural effusion.No acute osseous findings within the imaged chest. Redemonstration of comminuted superior and inferior left pubic ramifractures. The pubic symphysis remains well aligned. The femoral heads arewell-seated within the acetabula bilaterally. The SI joints are wellaligned. IMPRESSION: No evidence of acute injury within the imaged chest Comminuted superior and inferior left pubic rami fractures. Suspected leftsacral fracture also present. CRITICAL RESULT: No. COMMUNICATION: Per this written report.. Approved by Ziggy Cruz MD on 08/28/2022 6:24 AM By electronically signing this report, I, the attending physician, attestthat I have personally reviewed the images/data for the aboveexamination(s) and agree with the final edited report. Dictated by Ziggy Cruz MD on 08/28/2022 6:24 AM Signed by Seun Yates MD on 08/28/2022 6:30 AM us Dale Vazquez MD IMG XR PROCEDURES Final Res ult * XR Chest 1 View (08/28/2022 6:19 AM EST) Anatomical Region Laterality Modality Chest Digital Radiogra phy Impressions 08/28/2022 6:30 AM EST No evidence of acute injury within the imaged chest Comminuted superior and inferior left pubic rami fractures. Suspected left sacral fracture also present. CRITICAL RESULT: ?? No. COMMUNICATION: Per this written report.. Approved by Ziggy Cruz MD on 08/28/2022 6:24 AM By electronically signing this report, I, the attending physician, attest that I have personally reviewed the images/data for the above examination(s) and agree with the final edited report. Dictated by Ziggy Cruz MD on 08/28/2022 6:24 AM Signed by Seun Yates MD on 08/28/2022 6:30 AM Narrative 08/28/2022 6:30 AM EST Exam/Procedure: XR CHEST 1 VIEW, XR PELVIS 1 OR 2 VIEWS ordered by DALE VAZQUEZ, [id number] CLINICAL INDICATION: fall from standing TECHNIQUE: Single AP view of the chest. Single view of the pelvis. COMPARISON: CT bony pelvis from outside hospital, 3 hours prior. Chest x-ray from outside hospital, 3 hours prior. FINDINGS: No focal consolidation. Decreased lung volumes. Heart and mediastinal contours are within normal limits. No pneumothorax. No pleural effusion. No acute osseous findings within the imaged chest. Redemonstration of comminuted superior and inferior left pubic rami fractures. The pubic symphysis remains well aligned. The femoral heads are well-seated within the acetabula bilaterally. The SI joints are well aligned. Procedure Note Seun Yates MD - 08/28/2022 Exam/Procedure: XR CHEST 1 VIEW, XR PELVIS 1 OR 2 VIEWS ordered by AYDE VAZQUEZ, [id number] CLINICAL INDICATION: fall from standing TECHNIQUE: Single AP view of the chest. Single view of the pelvis. COMPARISON: CT bony pelvis from outside hospital, 3 hours prior. Chest x-ray fromcarrier clinic, 3 hours prior. FINDINGS: No focal consolidation. Decreased lung volumes. Heart and mediastinalcontours are within normal limits. No pneumothorax. No pleural effusion.No acute osseous findings within the imaged chest. Redemonstration of comminuted superior and inferior left pubic ramifractures. The pubic symphysis remains well aligned. The femoral heads arewell-seated within the acetabula bilaterally. The SI joints are wellaligned. IMPRESSION: No evidence of acute injury within the imaged chest Comminuted superior and inferior left pubic rami fractures. Suspected leftsacral fracture also present. CRITICAL RESULT: No. COMMUNICATION: Per this written report.. Approved by Ziggy Cruz MD on 08/28/2022 6:24 AM By electronically signing this report, I, the attending physician, attestthat I have personally reviewed the images/data for the aboveexamination(s) and agree with the final edited report. Dictated by Ziggy Cruz MD on 08/28/2022 6:24 AM Signed by Seun Yates MD on 08/28/2022 6:30 AM Dale Vazquez MD IMG XR PROCEDURES Final Res ult * Hepatitis C Antibody - ED (08/28/2022 6:13 AM EST) Hepatitis C Antibody Negative Negative 08/28/2022 7:[address] [facility] Blood Venous blood specimen / Unknown Venipuncture / Unknown 08/28/2022 6:13 AM EST 08/28/2022 6:27 AM EST Dale Vazquez MD LAB BLOOD ORDERABLES Final Result [facility] [address] [place] [address] * Magnesium (08/28/2022 6:12 AM EST) Pathologist [facility] Magnesium, Plasma 2.2 1.9 - 2.4 mg/dL 08/28/2022 10:[address] [facility] Blood Venous blood specimen / Unknown Venipuncture / Unknown 08/28/2022 6:12 AM EST 08/28/2022 6:27 AM EST us Celia Albarado FAILURE ANALYSIS ENGINEER LAB BLOOD ORDERABLES Final R esult Performing Organization Address City/State/[facility] Co de Phone Number [facility] [address] [place] [address] * (ABNORMAL) CMP (08/28/2022 6:12 AM EST) Glucose, Plasma 116(H) 74 - 99 mg/dL 08/28/2022 6:[address] [facility] BUN, Plasma 17 8 - 23 mg/dL 08/28/2022 6:[address] [facility] Creatinine, Plasma 0.60 0.60 - 1.10 mg/dL 08/28/2022 6:[address] [facility] BUN/Creatinine Ratio 28 08/28/2022 6:[address] [facility] Sodium, Plasma 132(L) 136 - 145 mmol/L 08/28/2022 6:[address] [facility] Potassium, Plasma 3.6(L) 3.7 - 4.8 mmol/L 08/28/2022 6:[address] [facility] Comment:Reference range for Serum potassium is 0.2 to 0.5 mmol/L higher than Plasma range. Chloride, Plasma 93(L) 97 - 107 mmol/L 08/28/2022 6:[address] [facility] CO2, Plasma 30(H) 22 - 29 mmol/L 08/28/2022 6:[address] [facility] Anion Gap 9 6 - 16 mmol/L 08/28/2022 6:[address] [facility] Total Calcium, Plasma 9.4 8.9 - 10.2 mg/dL 08/28/2022 6:[address] [facility] Total Protein 7.8 6.3 - 7.9 g/dL 08/28/2022 6:[address] [facility] Albumin, Plasma 4.8 3.5 - 5.2 g/dL 08/28/2022 6:[address] [facility] AST, Plasma 25 9 - 36 U/L 08/28/2022 6:[address] [facility] ALT, Plasma 19 8 - 33 U/L 08/28/2022 6:[address] [facility] Alkaline Phosphatase, Plasma 50 46 - 142 U/L 08/28/2022 6:[address] [facility] Total Bilirubin, Plasma 0.3 0.2 - 1.1 mg/dL 08/28/2022 6:[address] [facility] eGFRcr 92.0 mL/min/1.7 3m*2 08/28/2022 6:[address] [facility] Comment: Reported eGFRcr in mL/min/1.73m2 is based the CKD-EPI 2020 equation that does not use a race coefficient. Effective 05/14/22 our laboratory changed the eGFR calculation to the CKD-EPI 2020 equation from the previously reported eGFR, based on the MDRD equation. ??For comparisons between the two equations, please see laboratory website: ??[email or web address] Blood Venous blood specimen / Unknown Venipuncture / Unknown 08/28/2022 6:12 AM EST 08/28/2022 6:27 AM EST Dale Vazquez MD LAB BLOOD ORDERABLES Final Result [facility] [address] [place], [place] [id number] * (ABNORMAL) CBC and Differential (08/28/2022 6:12 AM EST) WBC Count 11.87(H) 3.70 - 10.30 10*3/uL LAB HEMATOLOGY METHOD 08/28/2022 6:[address] [facility] RBC Count 4.40 3.90 - 5.20 10*6/uL LAB HEMATOLOGY METHOD 08/28/2022 6:[address] [facility] HGB 12.9 11.2 - 15.7 g/dL LAB HEMATOLOGY METHOD 08/28/2022 6:[address] [facility] HCT 39.1 34.0 - 45.0 % LAB HEMATOLOGY METHOD 08/28/2022 6:[address] [facility] Platelet Count 248 155 - 369 10*3/uL LAB HEMATOLOGY METHOD 08/28/2022 6:[address] [facility] MCV 89 79 - 98 fL LAB HEMATOLOGY METHOD 08/28/2022 6:[address] [facility] MCH 29.3 26.0 - 32.0 pg LAB HEMATOLOGY METHOD 08/28/2022 6:[address] [facility] MCHC 33.0 30.7 - 35.5 g/dL LAB HEMATOLOGY METHOD 08/28/2022 6:[address] [facility] RDW 12.9 11.5 - 14.5 % LAB HEMATOLOGY METHOD 08/28/2022 6:[address] [facility] MPV 10.6 8.8 - 12.5 fL LAB HEMATOLOGY METHOD 08/28/2022 6:[address] [facility] nRBC 0.0 <=0.0 per 100 WBCs LAB HEMATOLOGY METHOD 08/28/2022 6:[address] [facility] Differential Type Automated LAB HEMATOLOGY METHOD 08/28/2022 6:[address] [facility] Neutrophils % 84.0 % LAB HEMATOLOGY METHOD 08/28/2022 6:[address] [facility] Lymphocytes % 8.0 % LAB HEMATOLOGY METHOD 08/28/2022 6:[address] [facility] Monocytes % 7.0 % LAB HEMATOLOGY METHOD 08/28/2022 6:[address] [facility] Eosinophils % 0.0 % LAB HEMATOLOGY METHOD 08/28/2022 6:[address] [facility] Basophils % 0.0 % LAB HEMATOLOGY METHOD 08/28/2022 6:[address] [facility] Immature Granulocytes % 1.0 % LAB HEMATOLOGY METHOD 08/28/2022 6:[address] [facility] Neutrophils Absolute 10.04(H) 1.60 - 6.10 10*3/uL LAB HEMATOLOGY METHOD 08/28/2022 6:[address] [facility] Lymphocytes Absolute 0.92(L) 1.20 - 3.90 10*3/uL LAB HEMATOLOGY METHOD 08/28/2022 6:17 AM EST [facility] Monocytes Absolute 0.77 0.30 - 0.90 10*3/uL LAB HEMATOLOGY METHOD 08/28/2022 6:17 AM EST [facility] Eosinophils Absolute 0.05 0.00 - 0.50 10*3/uL LAB HEMATOLOGY METHOD 08/28/2022 6:17 AM EST [facility] Basophils Absolute 0.03 0.00 - 0.10 10*3/uL LAB HEMATOLOGY METHOD 08/28/2022 6:17 AM EST [facility] Immature Granulocytes Absolute 0.06 0.00 - 0.06 10*3/uL LAB HEMATOLOGY METHOD 08/28/2022 6:17 AM EST [facility] Blood Venous blood specimen / Unknown Venipuncture / Unknown 08/28/2022 6:12 AM EST 08/28/2022 6:15 AM EST Narrative [facility] - 08/28/2022 6:17 AM EST Therapeutic decision making should be based on absolute values, rather than percentages. us Dale Vazquez MD LAB BLOOD ORDERABLES Final Result Performing Organization Address City/State/[facility] Co de Phone Number [facility] [address] [place] [phone] * [facility] ED POCUS PROCDOC (08/28/2022 5:55 AM EST) Narrative Dale Vazquez MD - 08/28/2022 5:55 AM EST Lola Dexter MD ? 08/28/2022 ??4:52 PM POC Ultrasound - Bedside Performed by: Lola Dexter MD Authorized by: Kay Herrera MD Procedure specific details: ?? EFAST Ultrasound Indication: Blunt trauma Views: ??LUQ, RUQ, Pelvis, Limited Cardiac, Limited Thoracic Interpretation: Peritoneal Free Fluid: Absent Pericardial effusion: absent Right thoracic free Fluid: absent Left thoracic Free Fluid: absent Right lung pneumothorax: absent Left Lung pneumothorax: absent ?? The images were Saved in [employer]. The study was technically adequate. Comments: negative e fast us Kay Herrera MD IN CLINIC/BEDSIDE ORDERABLES F inal Result documented in this encounter Visit Diagnoses Diagnosis Closed fracture of multiple pubic rami, left, initial encounter (CMS/HCC)- Primary Closed fracture of multiple pubic rami, left, initial encounter (CMS/[facility]) Closed fracture of sacrum, unspecified portion of sacrum, initial encounter (CMS/HCC) Closed fracture of sacrum, initial encounter (CMS/HCC) Fracture of left inferior pubic ramus, closed, initial encounter (CMS/[facility]) Fracture of left superior pubic ramus, closed, initial encounter (CMS/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) Fracture of left inferior pubic ramus, closed, initial encounter ([facility]) Closed fracture of sacrum, initial encounter ([facility]) Acquired hypothyroidism Unspecified hypothyroidism Rheumatoid arthritis involving multiple sites ([facility]) documented in this encounter Admitting Diagnoses Diagnosis Closed fracture of multiple pubic rami, left, initial encounter ([facility]) documented in this encounter Administered Medications Inactive Administered Medications - up to 3 most recent administrations Medication Order MAR Action Action Date Dose Rate Site acetaminophen (Tylenol) tablet 1,000 mg 1,000 mg, Oral, Every 6 hours scheduled, First dose on Thu08/28/22 at 1200, Until Discontinued, Routine Given 09/03/2022 5:46 AM EST 1,000 mg Given 09/02/2022 5:18 PM EST 1,000 mg Given 09/02/2022 11:29 AM EST 1,000 mg acetaminophen (Tylenol) tablet 500 mg 500 mg, Oral, Every 6 hours scheduled, First dose (after last modification) on Thu09/03/22 at 1200, Until Discontinued, Routine Given 09/03/2022 6:1 6 PM EST 500 mg Given 09/03/2022 11:48 AM EST 500 mg amLODIPine (Norvasc) tablet 5 mg 5 mg, Oral, Nightly, First dose on Brittney 08/28/22 at 2100, Until Discontinued, Routine Given 09/03/2022 8:49 PM EST 5 mg Given 09/02/2022 9:02 PM EST 5 mg Given 09/01/2022 8:16 PM EST 5 mg atorvastatin (Lipitor) tablet 20 mg 20 mg, Oral, Nightly, First dose on Brittney 08/28/22 at 2100, Until Discontinued, Routine Given 09/03/2022 8:4 9 PM EST 20 mg Given 09/02/2022 9:02 PM EST 20 mg Given 09/01/2022 8:16 PM EST 20 mg calcium carbonate (Tums) chewable tablet 1,000 mg 1,000 mg, Oral, Daily, First dose on Brittney 08/28/22 at 1030, Until Discontinued, Routine Given 09/04/2022 8:27 AM EST 1,000 mg Given 09/03/2022 8:11 AM EST 1,000 mg Given 09/02/2022 8:07 AM EST 1,000 mg celecoxib (CeleBREX) capsule 200 mg 200 mg, Oral, Daily, First dose on Brittney 08/28/22 at 1030, Until Discontinued, Routine Given 09/02/2022 8:0 8 AM EST 200 mg Given 09/01/2022 8:00 AM EST 200 mg Given 08/31/2022 9:10 AM EST 200 mg cholecalciferol (Vitamin D-3) tablet 1,000 Units 1,000 Units, Oral, Daily, First dose on Brittney 08/28/22 at 1030, Until Discontinued, Routine Given 09/04/2022 8:26 AM EST 1,000 Units Given 09/03/2022 8:11 AM EST 1,000 Units Given 09/02/2022 8:08 AM EST 1,000 Units enoxaparin (Lovenox) syringe 30 mg 30 mg, Subcutaneous, 2 times daily, First dose on Brittney 08/28/22 at 1410, Until Discontinued, Routine Given 09/04/2022 8:26 AM EST 30 mg Left Lower Abdomen Given 09/03/2022 8:50 PM EST 30 mg Le ft Lower Abdomen Given 09/03/2022 8:11 AM EST 30 mg Ri ght Lower Abdomen lactated Ringer's infusion 100 mL/hr, Intravenous, Continuous, Starting on 08/30/22 at 1100, Until 08/30/22 at 1718, Routine New Bag 08/30/2022 12:19 PM EST 100 mL/hr 100 mL/hr levothyroxine (Synthroid, Levoxyl) tablet 75 mcg 75 mcg, Oral, Daily before breakfast, First dose on Thu08/29/22 at 0730, Until Discontinued, Routine Given 09/04/2022 8:26 AM EST 75 mcg Given 09/03/2022 8:11 AM EST 75 mcg Given 09/02/2022 8:07 AM EST 75 mcg methocarbamol (Robaxin) tablet 500 mg 500 mg, Oral, 3 times daily PRN, Starting on 09/01/22 at 1603, Until Brittney 09/04/22 at 1338, Routine, muscle spasms Given 09/03/2022 8:49 PM EST 500 mg Given 09/02/2022 5:18 PM EST 500 mg Given 09/02/2022 11:29 AM EST 500 mg oxyCODONE (Roxicodone) immediate release tablet 2.5 mg 2.5 mg, Oral, Every 6 hours PRN, Starting on 09/01/22 at 0932, Until Brittney 09/04/22 at 1338, Routine, severe pain Given 09/01/2022 12:04 PM EST 2.5 mg oxyCODONE (Roxicodone) immediate release tablet 5 mg 5 mg, Oral, Every 4 hours PRN, Starting on 08/31/22 at 1158, Until Thu09/01/22 at 0932, Routine, moderate pain Given 08/31/2022 12:43 PM EST 5 mg oxyCODONE (Roxicodone) immediate release tablet 5 mg 5 mg, Oral, Every 6 hours PRN, Starting on 09/01/22 at 0932, Until Brittney 09/04/22 at 1338, Routine, severe pain Given 09/03/2022 8:49 PM EST 5 mg Given 09/02/2022 9:02 PM EST 5 mg pantoprazole (Protonix) EC tablet 40 mg 40 mg, Oral, Daily before breakfast, First dose on 08/30/22 at 0730, Until Discontinued, Routine Given 09/04/2022 8:27 AM EST 40 mg Given 09/03/2022 8:11 AM EST 40 mg Given 09/02/2022 8:08 AM EST 40 mg polyethylene glycol (Miralax) packet 17 g 17 g, Oral, Daily, First dose on Thu08/29/22 at 0900, Until Discontinued, Routine Given 08/31/2022 9:11 AM EST 17 g Given 08/30/2022 9:15 AM EST 17 g Given 08/29/2022 9:06 AM EST 17 g polyethylene glycol (Miralax) packet 17 g 17 g, Oral, 2 times daily, First dose (after last modification) on 08/31/22 at 2100, Until Discontinued, Routine Given 09/04/2022 8:27 AM EST 17 g Given 09/03/2022 8:11 AM EST 17 g Given 09/02/2022 8:08 AM EST 17 g potassium chloride CR (Klor-Con) ER tablet 40 mEq 40 mEq, Oral, Once, 1 dose, On Brittney /10/22 at 1030, Routine Given 08/28/2022 11:31 AM EST 40 mEq senna (Senokot) tablet 8.6 mg 8.6 mg, Oral, Nightly, First dose on Thu08/28/22 at 2100, Until Discontinued, Routine Given 09/02/2022 9:02 PM EST 8.6 mg Given 09/01/2022 8:16 PM EST 8.6 mg Given 08/31/2022 9:10 PM EST 8.6 mg sodium chloride 0.9 % flush 10 mL 10 mL, Intravenous, Every 8 hours PRN, Starting on Thu08/28/22 at 1023, Until Brittney 09/04/22 at 1338, Routine, line care sodium chloride 0.9 % flush 10 mL 10 mL, Intravenous, As needed, Starting on Thu08/28/22 at 1023, Until Brittney 09/04/22 at 1338, Routine, line care traMADol (Ultram) tablet 50 mg 50 mg, Oral, Every 4 hours PRN, Starting on Thu08/28/22 at 1028, Until 08/31/22 at 1159, Routine, severe pain Given 08/31/2022 9:17 AM EST 50 mg Given 08/30/2022 9:00 PM EST 50 mg Given 08/30/2022 9:17 AM EST 50 mg documented in this encounter Active and Recently Administered Medications Times are shown in EST. Scheduled Medication Order 09/02/2022 09/03/2022 09/04/2022 acetaminophen (Tylenol) tablet 1,000 mg (CANCELED) 1,000 mg, Oral, Every 6 hours scheduled, First dose on Thu08/28/22 at 1200, Until Discontinued, Routine 0525 (Given - Provider: Faheem Posadas RN)1129 (Given - Provider: Walter Smith RN)1718 (Given - Provider: Walter Smith RN) 0000 (Not Given - Provider: Candido Day - Reason: Patient/family refused)0546 (Given - Provider: Candido Day) acetaminophen (Tylenol) tablet 500 mg 500 mg, Oral, Every 6 hours scheduled, First dose (after last modification) on Thu09/03/22 at 1200, Until Discontinued, Routine 1148 (Given - Provider: Lashanda Dao RN)1816 (Given - Provider: Lashanda Dao RN) 0019 (Not Given - Provider: Roxana Medellin RN - Reason: Hold for condition: must add comment )0544 (Not Given - Provider: Roxana Medellin RN - Reason: Hold for condition: must add comment )1200 (Canceled Entry - Provider: Automatic Discharge Provider - Comment: Automatically canceled at discontinue of medication order) amLODIPine (Norvasc) tablet 5 mg 5 mg, Oral, Nightly, First dose on Brittney 08/28/22 at 2100, Until Discontinued, Routine 2101 (Given - Provider: Candido Day) 2048 (Given - Provider: Roxana Medellin, YULISSA) atorvastatin (Lipitor) tablet 20 mg 20 mg, Oral, Nightly, First dose on Brittney 08/28/22 at 2100, Until Discontinued, Routine 2101 (Given - Provider: Candido Day) 2048 (Given - Provider: Roxana Medellin, YULISSA) calcium carbonate (Tums) chewable tablet 1,000 mg 1,000 mg, Oral, Daily, First dose on Brittney 08/28/22 at 1030, Until Discontinued, Routine 0807 (Given - Provider: Walter Smith RN) 08 (Given - Provider: Lashanda Dao RN) 08 (Given - Provider: Lashanda Dao RN) celecoxib (CeleBREX) capsule 200 mg (CANCELED) 200 mg, Oral, Daily, First dose on Brittney 08/28/22 at 1030, Until Discontinued, Routine 0808 (Given - Provider: Walter Smith RN) cholecalciferol (Vitamin D-3) tablet 1,000 Units 1,000 Units, Oral, Daily, First dose on Brittney 08/28/22 at 1030, Until Discontinued, Routine 0808 (Given - Provider: Walter Smith RN) 08 (Given - Provider: Lashanda Dao RN) 0826 (Given - Provider: Lashanda Dao, YULISSA) enoxaparin (Lovenox) syringe 30 mg 30 mg, Subcutaneous, 2 times daily, First dose on Brittney 08/28/22 at 1410, Until Discontinued, Routine 0806 (Given - Provider: Walter Smith RN)2101 (Given - Provider: Candido Day) 810 (Given - Provider: Lashanda Dao RN)2049 (Given - Provider: Roxana Medellin, YULISSA) 08 (Given - Provider: Lashanda Dao RN) levothyroxine (Synthroid, Levoxyl) tablet 75 mcg 75 mcg, Oral, Daily before breakfast, First dose on Thu08/29/22 at 0730, Until Discontinued, Routine 0807 (Given - Provider: Walter Smith RN) 08 (Given - Provider: Lashanda Dao RN) 825 (Given - Provider: Lashanda Dao, RN) pantoprazole (Protonix) EC tablet 40 mg 40 mg, Oral, Daily before breakfast, First dose on Thu08/30/22 at 0730, Until Discontinued, Routine 0808 (Given - Provider: Walter Smith RN) 810 (Given - Provider: Lashanda Dao, YULISSA) 826 (Given - Provider: Lashanda Dao RN) polyethylene glycol (Miralax) packet 17 g 17 g, Oral, 2 times daily, First dose (after last modification) on Thu08/31/22 at 2100, Until Discontinued, Routine 08 (Given - Provider: Walter Smith RN)2102 (Not Given - Provider: Candido Day - Reason: Patient/family refused) 810 (Given - Provider: Lashanda Dao RN)2049 (Not Given - Provider: Roxana Medellin, YULISSA - Reason: Patient/family refused) 826 (Given - Provider: Lashanda Dao, YULISSA) senna (Senokot) tablet 8.6 mg 8.6 mg, Oral, Nightly, First dose on Brittney 08/28/22 at 2100, Until Discontinued, Routine 2101 (Given - Provider: Candido Day) 2049 (Not Given - Provider: Roxana Medellin, YULISSA - Reason: Patient/family refused) PRN Medication Order 09/02/2022 09/03/2022 09/04/2022 melatonin tablet 3 mg 3 mg, Oral, Nightly PRN, Starting on Brittney 08/28/22 at 1026, Until Brittney 09/04/22 at 1338, Routine, sleep methocarbamol (Robaxin) tablet 500 mg 500 mg, Oral, 3 times daily PRN, Starting on Thu09/01/22 at 1603, Until Thu09/04/22 at 1338, Routine, muscle spasms 0807 (Given - Provider: Walter Smith RN)1129 (Given - Provider: Walter Smith RN)1718 (Given - Provider: Walter Smith RN) 2048 (Given - Provider: Roxana Medellin RN) ondansetron ODT (Zofran-ODT) disintegrating tablet 4 mg 4 mg, Oral, Every 6 hours PRN, Starting on Thu08/28/22 at 1026, Until Thu09/04/22 at 1338, Routine, nausea, vomiting oxyCODONE (Roxicodone) immediate release tablet 2.5 mg(Linked Group 1) 2.5 mg, Oral, Every 6 hours PRN, Starting on Thu09/01/22 at 0932, Until Thu09/04/22 at 1338, Routine, severe pain 210 (See Alternative - Provider: Candido Day) 2048 (See Alternative - Provider: Roxana Medellin RN) oxyCODONE (Roxicodone) immediate release tablet 5 mg(Linked Group 1) 5 mg, Oral, Every 6 hours PRN, Starting on Thu09/01/22 at 0932, Until Thu09/04/22 at 1338, Routine, severe pain 210 (Given - Provider: Candido Day) 2048 (Given - Provider: Roxana Medellin RN) sodium chloride 0.9 % flush 10 mL(Linked Group 2) 10 mL, Intravenous, Every 8 hours PRN, Starting on Thu08/28/22 at 1023, Until Thu09/04/22 at 1338, Routine, line care sodium chloride 0.9 % flush 10 mL(Linked Group 2) 10 mL, Intravenous, As needed, Starting on Thu08/28/22 at 1023, Until Thu09/04/22 at 1338, Routine, line care Linked Groups Order Group 1: oxyCODONE (Roxicodone) immediate release tablet 2.5 mgJump to med 2.5 mg, Oral, Every 6 hours PRN, Starting on Thu09/01/22 at 0932, Until Thu09/04/22 at 1338, Routine, severe pain Or oxyCODONE (Roxicodone) immediate release tablet 5 mgJump to med 5 mg, Oral, Every 6 hours PRN, Starting on Thu09/01/22 at 0932, Until Thu09/04/22 at 1338, Routine, severe pain Group 2: Insert peripheral IV (COMPLETED) Once, On Thu08/28/22 at 1024, For 1 occurrence And Saline lock IV (COMPLETED) Once, On Thu08/28/22 at 1024, For 1 occurrence And sodium chloride 0.9 % flush 10 mLJump to med 10 mL, Intravenous, Every 8 hours PRN, Starting on Thu08/28/22 at 1023, Until Thu09/04/22 at 1338, Routine, line care And sodium chloride 0.9 % flush 10 mLJump to med 10 mL, Intravenous, As needed, Starting on Thu08/28/22 at 1023, Until Thu09/04/22 at 1338, Routine, line care documented in this encounter Care Teams Reexaminer Relationship Specialty Start Date End Date Rajiv Quezada MD [facility] [place] [address] PCP - General 08/28/22 documented as of this encounter
--- OUTSIDE RECORDS SUMMARY | 2024-09-04 15:15 | XMS_ITS | Encounter Summary ---
Author Organization Healthcare Address [address] [place] [address] Care Team Providers Care College Instructor Name Role Phone Rajiv Quezada MD Primary Care Provider [phone] Encounter Details Date Type Department Care Team (Latest Contact Info) Description 08/28/2022 3:51 AM EST - 08/28/2022 5:54 AM EST Hospital Encounter Image Record Center [address] [place] [phone] Examination Discharge Disposition: Home or Self Care [...] Name Priority Date/Time Associated Diagnosis Comments XR CHEST 1 VIEW Routine 08/28/2022 3:51 AM EST Examination documented in this encounter Results * XR Chest 1 View (08/28/2022 3:51 AM EST) Narrative IMAGING - 08/28/2022 3:51 AM EST This study was performed at an outside facility and has been loaded into the PACS system for reference only. ??This order has been auto-finalized and does not contain a result. us Imaging Upload Radiant IMG XR PROCEDURES Final R esult IMAGING documented in this encounter Visit Diagnoses Diagnosis Examination Unspecified examination documented in this encounter Care Teams College Instructor Relationship Specialty Start Date End Date Rajiv Quezada MD [address] [place] [address] PCP - General 08/28/22 documented as of this encounter
--- OUTSIDE RECORDS SUMMARY | 2024-09-04 15:15 | XMS_ITS | Encounter Summary ---
Author Organization Healthcare Address [address] [place] [address] Care Team Providers Care Gas Plant Worker Name Role Phone Rajiv Quezada MD Primary Care Provider [phone] Encounter Details Date Type Department Care Team (Latest Contact Info) Description 08/28/2022 3:51 AM EST - 08/28/2022 5:54 AM EST Hospital Encounter Image Record Center [address] [place] [phone] Examination Discharge Disposition: Home or Self Care [...] Priority Date/Time Associated Diagnosis Comments XR PELVIS 1 OR 2 VIEWS Routine 08/28/2022 3:51 AM EST Examination documented in this encounter Results * XR Pelvis 1 or 2 Views (08/28/2022 3:51 AM EST) Narrative IMAGING - [...] examination documented in this encounter Care Teams Gas Plant Worker Relationship Specialty Start Date End Date Rajiv Quezada MD [facility] [address] [address] PCP - General 08/28/22 documented as of this encounter
== END 2024-09-03 14:28 | disposition home or self-care (01) ==
PROVIDERS: Emergency Provider Nurse Practitioner Family; PCP Family Medicine
DX: B37.2 Candidiasis of skin and nail (principal)
CPT/HCPCS: 99213; G0381

== ENCOUNTER 2025-09-28 15:20 | Outpatient (CLI) | payer MEDICARE, SELFPAY ==
--- NOTE | 2025-09-28 15:24 | XR_ITS ---
FINAL REPORT CLINICAL HISTORY: pelvic pain COMPARISON: None FINDINGS: RIGHT HIP Two views of the right hip with an AP view of the pelvis demonstrate no acute fracture or dislocation. The joint spaces appear normal. The visualized bony structures are well aligned. No soft tissue abnormality is seen. IMPRESSION: No acute bony abnormality. Reviewed, Interpreted and Dictated by Giuseppe Hackett MD Transcribed by Isa Vick [facility]
== END 2025-09-28 23:59 | disposition home or self-care (01) ==
LOC: RAD 15:20
PROVIDERS: PCP Family Medicine; Visit Provider Nurse Practitioner
DX: R10.20 Pelvic and perineal pain unspecified side (principal)
CPT/HCPCS: 73502